=== PATIENT | female | born 1940 | race African-American/Black ===

== ENCOUNTER → 2016-09-21 | Outpatient (CLI) | payer MEDICARE, OTHER ==
[~2016-09-21] MED LIST: AMLO10TA2 PO; ASPI81CH37 CHEW; CLOP75TA PO; DORZ2SOL EACH EYE; HYDR-3516 PO; LOSA25TA PO; MACR100C2 PO; METO50TA11 PO; NOVO7030P2 SQ; PLAQ200T PO; REFRDRO EACH EYE; TIMO0.5S30 EACH EYE; TIMO0.5S4 EACH EYE; VITA2000 PO
[2016-09-21 13:49] LABS: BASOPHIL % 0.3 % (0.0-2.0); EOSINOPHIL % 0.6 % (0.0-4.0); HEMATOCRIT 33.4 % (35.0-46.0); HEMO FLAGS DIFF FINAL; LYMPH % 14.5 % (9.0-44.0); LYMPHOCYTE # 1.1 TH/MM3 (1.0-4.8); MEAN CELL VOLUME 88.1 FL (80.0-100.0); MEAN CORPUSCULAR HEMOGLOBIN 29.2 PG (27.0-34.0); MEAN CORPUSCULAR HGB CONC 33.2 % (32.0-36.0); NEUT % 76.6 % (16.0-70.0); PLATELET COUNT 213 TH/MM3 (150-450); RED BLOOD COUNT 3.79 MIL/MM3 (4.00-5.30); RED CELL DISTRIBUTION WIDTH 14.9 % (11.6-17.2); WHITE BLOOD COUNT 7.9 TH/MM3 (4.0-11.0)
[2016-09-21 14:10] LABS: ALKALINE PHOSPHATASE 111 U/L (45-117); ALT (GPT) 13 U/L (10-53); ANION GAP 7 MEQ/L (5-15); AST (GOT) 5 U/L (15-37); BICARBONATE 26.6 MEQ/L (21.0-32.0); BLOOD UREA NITROGEN 10 MG/DL (7-18); CHLORIDE 104 MEQ/L (98-107); GLOMERULAR FILTRATION RATE 75 ML/MIN (>89); GLUCOSE,FASTING 142 MG/DL (74-99); SODIUM (NA) 138 MEQ/L (136-145); TOTAL BILIRUBIN ADULT 0.4 MG/DL (0.2-1.0)
[2016-09-21 14:21] LABS: WESTERGREN SEDIMENTATION RATE 97 mm/hr (0-30)
== END ==
LOC: CLAB 13:09
PROVIDERS: ATTEND Allergy & Immunology
DX: M06.4 Inflammatory polyarthropathy (principal)
CPT/HCPCS: 36415; 80053; 85025; 85652; 86140

== ENCOUNTER 2016-09-27 08:58 | Emergency (ER) | payer MEDICARE, OTHER ==
[~2016-09-27] VITALS: Ht 162.6 cm; Wt 100.0 kg
[~2016-09-27 08:58] MED LIST changes: -CLOP75TA PO; -HYDR-3516 PO; -MACR100C2 PO; -TIMO0.5S30 EACH EYE; -VITA2000 PO
[2016-09-27 09:02] VITALS: BP 154/67; PULSE 80; RESP 18; TEMP 98; O2SAT 98
[2016-09-27 09:35] VITALS: BP 136/62; PULSE 69; RESP 18; O2SAT 98
[2016-09-27] MEDS ORDERED: SODIUM CHLOR 0.9% 1000 ML INJ 1,000 ML IV SCH (09:44)
[2016-09-27] MEDS ORDERED: ONDANSETRON HCL 4 MG/2 ML VIAL IVP ONE (09:45)
[2016-09-27] MEDS ORDERED: SODIUM CHLORIDE 0.9% FLUSH 5 ML FLUSH IVF PRN (09:45)
--- NOTE | 2016-09-27 09:50 | PD ---
HPI Chief Complaint: Abdominal Pain Time Seen by Provider: 09:14 Travel History International Travel<30 days: No Contact w/Intl Traveler<30days: No Traveled to known affect area: No History of Present Illness HPI Patient is a 75-year-old female who presents to emergency room with complaints of lower abdominal pain which radiates to her right flank. Patient reports that her symptoms began 4 days ago, reports that symptoms are just getting worse. Patient reports that she is having increased dysuria, with urinary urgency and frequency. Patient denies hematuria. Patient reports that she feels nauseous but has not vomited. Denies constipation or diarrhea. Patient reports that she has been having fevers and chills, reports that her temperature last night was 102 - reports that she feels as if her temperature is "going down." Patient reports that she does have history of kidney stones in the past, reports that she is unsure if she had a kidney stone today as the laceration to kidney stone, she felt no pain. Patient denies chest pain or shortness of breath. Patient with no other complaints. PFSH Past Medical History Hx Anticoagulant Therapy: Yes (plavix aspirin) Anemia: Yes Arthritis: Yes (RHEUMATOID AND OSTEO) Asthma: Yes Blood Disorders: No Anxiety: Yes Depression: No Heart Rhythm Problems: Yes Cancer: No Cardiac Catheterization: Yes (IN 2004) Cardiovascular Problems: Yes Chemotherapy: No Chest Pain: Yes Coronary Artery Disease: Yes Diabetes: Yes Patient Takes Glucophage: No Diminished Hearing: No Diverticulitis: Yes Endocrine: Yes Fibromyalgia: Yes Gastrointestinal Disorders: Yes (GERD, OCCASIONAL N/V, ESOPHAGEAL STRICTURE/ DILATION) GERD: Yes Glaucoma: Yes Genitourinary: Yes (recent bladder infection) Headaches: Yes Hepatitis: No Hiatal Hernia: Yes Hypertension: Yes Immune Disorder: Yes (RHEUMATOID ARTHRITIS) Inguinal Hernia: Yes Kidney Stones: Yes Musculoskeletal: Yes (BACK/NECK PROBLEMS, RHEUMATOID & OSTEOARTHRITIS, FIBROMYALGIA) Neurologic: No Psychiatric: Yes (CLAUSTROPHOBIC) Reproductive: Yes (DX RECENTLY WITH ENLARGED UTERUS) Respiratory: Yes (asthma) Immunizations Current: Yes Pneumonia: Yes Radiation Therapy: No Sickle Cell Disease: No Sleep Apnea: Yes (NO CPAP USE) Thyroid Disease: Yes (HX OF, NOT ON MEDICATION CURRENTLY) Tetanus Vaccination: > 5 Years Influenza Vaccination: Yes PNEUMOCCOCAL Vaccine (Year): 2009 ?: Not Menopausal: Yes : 3 Para: 2 Miscarriage: 1 Dilation and Curettage (D&C): Yes Tubal Ligation: Yes Past Surgical History Abdominal Surgery: Yes (RT INGUINAL HERNIA) AICD: No Arteriovenous Shunt: No Body Medical Devices: Stents X2 Cardiac Surgery: Yes (CARDIAC STENTS X 2) Section: Yes Coronary Stent: Yes (X 2) Ear Surgery: No Endocrine Surgery: No Eye Surgery: Yes (GLAUCOMA SURGERY R EYE, RT CATARACT REMOVED) Genitourinary Surgery: No Gynecologic Surgery: Yes (D & C X 3, TUBAL LIGATION) Insulin Pump: No Joint Replacement: No Neurologic Surgery: No Oral Surgery: Yes (CROWNS,CAPS, PARTIAL LOWER PLATE) Pacemaker: No Thoracic Surgery: No Other Surgery: Yes Social History Alcohol Use: No Tobacco Use: No (QUIT IN 1979) Substance Use: No Allergies-Medications (Allergen,Severity, Reaction): Coded Allergies: Alphagan (Verified Allergy, Intermediate, Redness, 08/15/16) Travatan (Verified Allergy, Intermediate, Redness, 08/15/16) Bactrim (Verified Allergy, Unknown, 08/15/16) Cipro (Verified Allergy, Unknown, 08/15/16) Levaquin (Verified Adverse Reaction, Severe, WEAKNESS, 08/15/16) Reported Meds & Prescriptions Reported Meds & Active Scripts Active Macrobid (Nitrofurantoin Monoh/Nitrofur Macro) 100 Mg Cap 100 Mg PO BID 10 Days Reported Amlodipine (Amlodipine Besylate) 10 Mg Tab 10 Mg PO DAILY Aspirin Low Dose (Aspirin) 81 Mg Chew 162 Mg CHEW DAILY Refresh Opth Drops (Polyvinyl Alcohol-Povidone Opth Drops) 1.4-0.6% Drops 1-2 Drop EACH EYE PRN PRN Timoptic-Xe Opth Gel (Timolol Opth Gel) 0.5 % Gel 1 Drop EACH EYE DAILY Dorzolamide Opth Drops (Dorzolamide HCl) 2% Soln 1 Drop EACH EYE TID Metoprolol Succinate ER 24 HR (Metoprolol Succinate) 50 Mg Tab 50 Mg PO DAILY Losartan (Losartan Potassium) 25 Mg Tab 25 Mg PO DAILY Novolin 70-30 Inj (Insulin Human Isoph/Insulin Regular) 1,000 Unit/10 Ml Vial 1 Units SQ SLIDING SCALE Plaquenil (Hydroxychloroquine Sulfate) 200 Mg Tab 200 Mg PO BID Take with food Review of Systems General / Constitutional: No: Fever Eyes: No: Visual changes HENT: No: Headaches Cardiovascular: No: Chest Pain or Discomfort Respiratory: No: Shortness of Breath Gastrointestinal: Positive: Nausea, Abdominal Pain Genitourinary: Positive: Urgency, Frequency, Dysuria, Hematuria, Flank Pain, No: Hesitancy, Pelvic Pain Musculoskeletal: No: Pain Skin: No Rash Neurologic: No: Weakness Psychiatric: No: Depression Endocrine: No: Polydipsia Hematologic/Lymphatic: No: Easy Bruising Physical Exam Narrative GENERAL: No acute distress, nontoxic SKIN: Warm and dry. HEAD: Atraumatic. Normocephalic. EYES: Pupils equal and round. No scleral icterus. No injection or drainage. ENT: No nasal bleeding or discharge. Mucous membranes pink and moist. NECK: Trachea midline. No JVD. CARDIOVASCULAR: Regular rate and rhythm. No murmur appreciated. RESPIRATORY: No accessory muscle use. Clear to auscultation. Breath sounds equal bilaterally. GASTROINTESTINAL: Abdomen soft, mild tenderness to lower abdomen with right sided flank pain MUSCULOSKELETAL: No obvious deformities. No clubbing. No cyanosis. No edema. NEUROLOGICAL: Awake and alert. No obvious cranial nerve deficits. Motor grossly within normal limits. Normal speech. PSYCHIATRIC: Appropriate mood and affect; insight and judgment normal. Data Data Last Documented VS Vital Signs Date Time Temp Pulse Resp B/P Pulse Ox O2 Delivery O2 Flow Rate FiO2 09/27/16 10:28 18 09/27/16 09:35 69 136/62 98 Room Air 09/27/16 09:02 98.0 Orders Complete Blood Count With Diff (09/27/16 09:44) Comprehensive Metabolic Panel (09/27/16 09:44) Lipase (09/27/16 09:44) Prothrombin Time / Inr (Pt) (09/27/16 09:44) Act Partial Throm Time (Ptt) (09/27/16 09:44) Urinalysis - C+S If Indicated (09/27/16 09:44) Ct Abd/Pel W/O Iv Contrast (09/27/16 09:44) Iv Access Insert/Monitor (09/27/16 09:44) Ondansetron Inj (Zofran Inj) (09/27/16 09:45) Sodium Chlor 0.9% 1000 Ml Inj (Ns 1000 M (09/27/16 09:44) Sodium Chloride 0.9% Flush (Ns Flush) (09/27/16 09:45) Morphine Inj (Morphine Inj) (09/27/16 10:00) Influenzae A/B Antigen (09/27/16 09:54) Urine Culture (09/27/16 09:45) Ceftriaxone Inj (Rocephin Inj) (09/27/16 10:45) Labs Laboratory Tests Test 09/27/16 09:45 White Blood Count 7.4 TH/MM3 Red Blood Count 3.86 MIL/MM3 Hemoglobin 11.1 GM/DL Hematocrit 33.9 % Mean Corpuscular Volume 87.8 FL Mean Corpuscular Hemoglobin 28.7 PG Mean Corpuscular Hemoglobin 32.6 % Concent Red Cell Distribution Width 14.7 % Platelet Count 231 TH/MM3 Mean Platelet Volume 8.7 FL Neutrophils (%) (Auto) 76.7 % Lymphocytes (%) (Auto) 12.4 % Monocytes (%) (Auto) 10.4 % Eosinophils (%) (Auto) 0.1 % Basophils (%) (Auto) 0.4 % Neutrophils # (Auto) 5.6 TH/MM3 Lymphocytes # (Auto) 0.9 TH/MM3 Monocytes # (Auto) 0.8 TH/MM3 Eosinophils # (Auto) 0.0 TH/MM3 Basophils # (Auto) 0.0 TH/MM3 CBC Comment DIFF FINAL Differential Comment Prothrombin Time 12.6 SEC Prothromb Time International 1.1 RATIO Ratio Activated Partial 29.0 SEC Thromboplast Time Urine Color YELLOW Urine Turbidity HAZY Urine pH 5.5 Urine Specific [place] 1.018 Urine Protein 30 mg/dL Urine Glucose (UA) NEG mg/dL Urine Ketones TRACE mg/dL Urine Occult Blood SMALL Urine Nitrite POS Urine Bilirubin NEG Urine Urobilinogen 2.0 MG/DL Urine Leukocyte Esterase LARGE Urine RBC 7 /hpf Urine WBC /hpf Urine WBC Clumps FEW Urine Squamous Epithelial 11 /hpf Cells Urine Bacteria OCC /hpf Urine Hyaline Casts 2 /lpf Urine Mucus FEW /lpf Microscopic Urinalysis Comment CULTURE INDICATED Sodium Level 134 MEQ/L Potassium Level 4.5 MEQ/L Chloride Level 101 MEQ/L Carbon Dioxide Level 23.6 MEQ/L Anion Gap 9 MEQ/L Blood Urea Nitrogen 14 MG/DL Creatinine 1.19 MG/DL Estimat Glomerular Filtration 53 ML/MIN Rate Random Glucose 128 MG/DL Calcium Level 9.3 MG/DL Total Bilirubin 0.6 MG/DL Aspartate Amino Transf 50 U/L (AST/SGOT) Alanine Aminotransferase 37 U/L (ALT/SGPT) Alkaline Phosphatase 115 U/L Total Protein 8.8 GM/DL Albumin 2.8 GM/DL Lipase 108 U/L MDM Medical Decision Making Medical Screen Exam Complete: Yes Emergency Medical Condition: Yes Interpretation(s) Vital Signs Date Time Temp Pulse Resp B/P Pulse Ox O2 Delivery O2 Flow Rate FiO2 09/27/16 09:35 69 18 136/62 98 Room Air 09/27/16 09:02 98.0 80 18 154/67 98 Differential Diagnosis Cystitis, pyelonephritis, kidney stone Narrative Course Patient is a 75-year-old female who presents to emergency room with complaints of 4 days of fever, chills with nausea with right-sided flank pain with associated urinary symptoms. Patient with clinical symptoms suggesting UTI versus pyelonephritis vs kidney stone. Plan to obtain UA, cbc, bmp to look for infection and kidney function. ct abdomen and pelvis ordered for evaluation of kidney stone vs hydronephrosis vs obstruction All labs and all studies reviewed with patient in detail. Laboratory Tests Test 09/27/16 09:45 White Blood Count 7.4 TH/MM3 (4.0-11.0) Red Blood Count 3.86 MIL/MM3 (4.00-5.30) Hemoglobin 11.1 GM/DL (11.6-15.3) Hematocrit 33.9 % (35.0-46.0) Mean Corpuscular Volume 87.8 FL (80.0-100.0) Mean Corpuscular Hemoglobin 28.7 PG (27.0-34.0) Mean Corpuscular Hemoglobin 32.6 % Concent (32.0-36.0) Red Cell Distribution Width 14.7 % (11.6-17.2) Platelet Count 231 TH/MM3 (150-450) Mean Platelet Volume 8.7 FL (7.0-11.0) Neutrophils (%) (Auto) 76.7 % (16.0-70.0) Lymphocytes (%) (Auto) 12.4 % (9.0-44.0) Monocytes (%) (Auto) 10.4 % (0.0-8.0) Eosinophils (%) (Auto) 0.1 % (0.0-4.0) Basophils (%) (Auto) 0.4 % (0.0-2.0) Neutrophils # (Auto) 5.6 TH/MM3 (1.8-7.7) Lymphocytes # (Auto) 0.9 TH/MM3 (1.0-4.8) Monocytes # (Auto) 0.8 TH/MM3 (0-0.9) Eosinophils # (Auto) 0.0 TH/MM3 (0-0.4) Basophils # (Auto) 0.0 TH/MM3 (0-0.2) CBC Comment DIFF FINAL Differential Comment Prothrombin Time 12.6 SEC (9.8-11.6) Prothromb Time International 1.1 RATIO Ratio Activated Partial 29.0 SEC Thromboplast Time (24.3-30.1) Urine Color YELLOW (YELLW/STRAW) Urine Turbidity HAZY (CLEAR) Urine pH 5.5 (5.0-8.5) Urine Specific [place] 1.018 (1.002-1.035) Urine Protein 30 mg/dL (NEG-TRACE) Urine Glucose (UA) NEG mg/dL (NEG) Urine Ketones TRACE mg/dL (NEG) Urine Occult Blood SMALL (NEG) Urine Nitrite POS (NEG) Urine Bilirubin NEG (NEG) Urine Urobilinogen 2.0 MG/DL (LESS THAN 2.0) Urine Leukocyte Esterase LARGE (NEG) Urine RBC 7 /hpf (0-3) Urine WBC /hpf (0-5) Urine WBC Clumps FEW (NONE) Urine Squamous Epithelial 11 /hpf (0-5) Cells Urine Bacteria OCC /hpf (NONE) Urine Hyaline Casts 2 /lpf (RARE) Urine Mucus FEW /lpf (OCC) Microscopic Urinalysis Comment CULTURE INDICATED Sodium Level 134 MEQ/L (136-145) Potassium Level 4.5 MEQ/L (3.5-5.1) Chloride Level 101 MEQ/L (98-107) Carbon Dioxide Level 23.6 MEQ/L (21.0-32.0) Anion Gap 9 MEQ/L (5-15) Blood Urea Nitrogen 14 MG/DL (7-18) Creatinine 1.19 MG/DL (0.50-1.00) Estimat Glomerular Filtration 53 ML/MIN (>89) Rate Random Glucose 128 MG/DL (74-106) Calcium Level 9.3 MG/DL (8.5-10.1) Total Bilirubin 0.6 MG/DL (0.2-1.0) Aspartate Amino Transf 50 U/L (15-37) (AST/SGOT) Alanine Aminotransferase 37 U/L (10-53) (ALT/SGPT) Alkaline Phosphatase 115 U/L (45-117) Total Protein 8.8 GM/DL (6.4-8.2) Albumin 2.8 GM/DL (3.4-5.0) Lipase 108 U/L (73-393) Patient does have a urinary tract infection, IV dose of Rocephin given to patient. Urine culture sent. .UC with large leuk esteraste, occ bacteria, small blood Cr mildly elevated at 1.19 - pt most likely dehydrated - ivf given to her in ER Ct abdomen/pelvis: Last Impressions Abdomen/Pelvis CT 09/27/16 0944 Signed Impressions: Service Date/Time: Tuesday, September 27, 2016 10:06 - CONCLUSION: No evidence of inflammatory process within the abdomen or pelvis. Diverticulosis is identified within the sigmoid colon without current evidence of inflammation.. Magdalena Thorpe MD As far as her reproductive organs, there is a rounded mass projecting from the posterior aspect of her uterus consistent with a uterine fibroid. This appears decreased in size compared to previous studies. A copy of patient's CAT scan report was given to her so that she can follow up with all these studies and findings as outpatient. Diagnosis Primary Impression: UTI (urinary tract infection) Qualified Code: N30.01 - Acute cystitis with hematuria Additional Impressions: Flank pain Renal insufficiency Anemia Qualified Code: D64.9 - Anemia, unspecified type Fibroid, uterine Qualified Code: D25.9 - Uterine leiomyoma, unspecified location Patient Instructions: General Instructions, Narcotic given in the ED Med/Other Pt SpecificInfo: Prescription(s) given Scripts Nitrofurantoin Monohydrate Macrocrystals (Macrobid)100 Mg [id number] Mg PO BID 10 Days Ref 0 Prov:Trudy Odom DO 09/27/16 Disposition: 01 DISCHARGE HOME Condition: Stable Trudy Odom DO Sep 27, 2016 09:49 Trudy Odom DO Sep 27, 2016 09:49
[2016-09-27] MEDS ORDERED: MORPHINE SULFATE 4 MG/ML INJ IV PUSH ONE (10:00)
[2016-09-27 10:06] LABS: AUTOMATED NEUTROPHIL # 5.6 TH/MM3 (1.8-7.7); BASOPHIL % 0.4 % (0.0-2.0); EOSINOPHIL % 0.1 % (0.0-4.0); HEMATOCRIT 33.9 % (35.0-46.0); HEMO FLAGS DIFF FINAL; LYMPH % 12.4 % (9.0-44.0); LYMPHOCYTE # 0.9 TH/MM3 (1.0-4.8); MEAN CELL VOLUME 87.8 FL (80.0-100.0); MEAN CORPUSCULAR HEMOGLOBIN 28.7 PG (27.0-34.0); MEAN CORPUSCULAR HGB CONC 32.6 % (32.0-36.0); MONO % 10.4 % (0.0-8.0); NEUT % 76.7 % (16.0-70.0); PLATELET COUNT 231 TH/MM3 (150-450); RED BLOOD COUNT 3.86 MIL/MM3 (4.00-5.30); RED CELL DISTRIBUTION WIDTH 14.7 % (11.6-17.2); WHITE BLOOD COUNT 7.4 TH/MM3 (4.0-11.0)
[2016-09-27 10:12] LABS: BACTERIA, URINE OCC /hpf; BLOOD, URINE SMALL (NEG); COMMENT (UR) CULTURE INDICATED; CULTURE IF INDICATED CULTURE INDICATED; GLUCOSE,URINE NEG (NEG); HYALINE CAST, URINE 2 /lpf (RARE); KETONE, URINE TRACE mg/dL (NEG); MUCUS URINE FEW /lpf (OCC); NITRITE,URINE POS (NEG); PH, URINE 5.5 (5.0-8.5); SQUAMOUS EPITHELIAL CELL URINE 11 /hpf (0-5); URINE COLOR YELLOW (YELLW/STRAW)
[2016-09-27 10:33] LABS: ALKALINE PHOSPHATASE 115 U/L (45-117); TOTAL BILIRUBIN ADULT 0.6 MG/DL (0.2-1.0)
[2016-09-27 10:35] LABS: INTERNATIONAL NORMALIZED RATIO 1.1 RATIO; PROTHROMBIN TIME - PATIENT 12.6 SEC (9.8-11.6)
[2016-09-27 10:37] LABS: ALT (GPT) 37 U/L (10-53); ANION GAP 9 MEQ/L (5-15); AST (GOT) 50 U/L (15-37); BICARBONATE 23.6 MEQ/L (21.0-32.0); BLOOD UREA NITROGEN 14 MG/DL (7-18); CHLORIDE 101 MEQ/L (98-107); GLOMERULAR FILTRATION RATE 53 ML/MIN (>89); SODIUM (NA) 134 MEQ/L (136-145)
[2016-09-27 10:44] LABS: POTASSIUM 4.5 MEQ/L (3.5-5.1)
[2016-09-27] MEDS ORDERED: cefTRIAXone INJ 1,000 MG in SODIUM CHLORIDE 0.9% INJ 100 ML IV ONE (10:45)
--- NOTE | 2016-09-27 10:50 | RADRPT ---
EXAM DATE/TIME: 09/27/2016 10:06 [facility] COMPARISON: CT ABDOMEN & PELVIS W/O CONTRAST, July 25, 2015, 18:45. INDICATIONS : Lower abdominal pain that radiates to right flank, dysuria, nausea. ORAL CONTRAST: No oral contrast ingested. RADIATION DOSE: 25.04 CTDIvol (mGy) MEDICAL HISTORY : Renal calculi. Diverticulitis. Gastroesophageal reflux disease.Diabetes, hypertension, cardiovascular disease. SURGICAL HISTORY : Tubal ligation. Coronary artery stent. ENCOUNTER: Initial ACUITY: 4 - 6 days PAIN SCALE: 5/10 LOCATION: Bilateral lower quadrant TECHNIQUE: Volumetric scanning of the abdomen and pelvis was performed. Using automated exposure control and ad justment of the mA and/or kV according to patient size, radiation dose was kept as low as reasonably achievable to obtain optimal diagnostic quality images. FINDINGS: LOWER LUNGS: The visualized lower lungs are clear. LIVER: Calcified granulomas. The liver is otherwise normal in morphology and attenuation. SPLEEN: Normal size without lesion. PANCREAS: Within normal limits. KIDNEYS: Normal in size and shape. There is no mass, stone, or hydronephrosis. ADRENAL GLANDS: Within normal limits. VASCULAR: There is no aortic aneurysm. Extensive atherosclerosis is noted. BOWEL/MESENTERY: The stomach, small bowel, and colon demonstrate no acute abnormality. There is no free intraperitone al air or fluid. Diverticulosis involving the sigmoid colon. ABDOMINAL WALL: Within normal limits. RETROPERITONEUM: There is no lymphadenopathy. BLADDER: No wall thickening or mass. REPRODUCTIVE: There is a rounded mass projecting from the posterior aspect of the uterus consistent with a uterine fibroid. This appears decreased in size as compared to the prior exam currently measuring 3.90 3.8 x 3.6 cm. INGUINAL: There is no lymphadenopathy or hernia. MUSCULOSKELETAL: Within normal limits for patient age. CONCLUSION: No evidence of inflammatory process within the abdomen or pelvis. Diverticulosis is identified within the sigmoid colon without current evidence of inflammation.. Magdalena Thorpe MD on September 27, 2016 at 10:45 Board Certified Radiologist. This report was verified electronically.
[2016-09-27] MEDS ORDERED: MACR100C2 PO (11:04)
[2016-09-27 12:41] VITALS: BP 131/64; PULSE 72; RESP 18; O2SAT 98
[2016-12-04] MEDS ORDERED: TIMO0.5S30 EACH EYE (10:10)
== END 2016-09-27 12:42 | disposition home or self-care (01) ==
LOC: NEPC 08:58
DX: N30.01 Acute cystitis with hematuria (principal); R10.9 Unspecified abdominal pain; N28.9 Disorder of kidney and ureter, unspecified; D64.9 Anemia, unspecified; D25.9 Leiomyoma of uterus, unspecified; B96.20 Unspecified Escherichia coli [E. coli] as the cause of diseases classified elsewhere; R50.9 Fever, unspecified; K57.90 Diverticulosis of intestine, part unspecified, without perforation or abscess without bleeding; E11.9 Type 2 diabetes mellitus without complications; I10 Essential (primary) hypertension; Z79.4 Long term (current) use of insulin; Z87.442 Personal history of urinary calculi; Z86.2 Personal history of diseases of the blood and blood-forming organs and certain disorders involving the immune mechanism; Z87.39 Personal history of other diseases of the musculoskeletal system and connective tissue; Z86.79 Personal history of other diseases of the circulatory system; Z87.09 Personal history of other diseases of the respiratory system; Z86.59 Personal history of other mental and behavioral disorders; Z87.19 Personal history of other diseases of the digestive system; Z87.891 Personal history of nicotine dependence
CPT/HCPCS: 74176; 80053; 81001; 83690; 85025; 85610; 85730; 87077; 87086; 87186; 96361; 96365; 96375; 99284; J0696; J2270; J2405; J7030

== ENCOUNTER → 2017-01-05 | Outpatient (CLI) | payer MEDICARE, OTHER ==
[~2017-01-05] MED LIST changes: +CLOP75TA PO; +HYDR-3516 PO; +TIMO0.5S30 EACH EYE; -TIMO0.5S4 EACH EYE; +VITA2000 PO
[2017-01-05 08:20] LABS: AUTOMATED NEUTROPHIL # 4.2 TH/MM3 (1.8-7.7); BASOPHIL % 0.3 % (0.0-2.0); EOSINOPHIL # 0.1 TH/MM3 (0-0.4); EOSINOPHIL % 1.4 % (0.0-4.0); HEMATOCRIT 32.9 % (35.0-46.0); HEMO FLAGS DIFF FINAL; LYMPH % 24.8 % (9.0-44.0); LYMPHOCYTE # 1.6 TH/MM3 (1.0-4.8); MEAN CELL VOLUME 90.4 FL (80.0-100.0); MEAN CORPUSCULAR HEMOGLOBIN 28.8 PG (27.0-34.0); MEAN CORPUSCULAR HGB CONC 31.9 % (32.0-36.0); MONO % 7.6 % (0.0-8.0); NEUT % 65.9 % (16.0-70.0); PLATELET COUNT 175 TH/MM3 (150-450); RED BLOOD COUNT 3.64 MIL/MM3 (4.00-5.30); RED CELL DISTRIBUTION WIDTH 16.3 % (11.6-17.2); WHITE BLOOD COUNT 6.4 TH/MM3 (4.0-11.0)
[2017-01-05 08:48] LABS: ALKALINE PHOSPHATASE 133 U/L (45-117); ALT (GPT) 13 U/L (10-53); ANION GAP 7 MEQ/L (5-15); AST (GOT) 12 U/L (15-37); BICARBONATE 25.8 MEQ/L (21.0-32.0); BLOOD UREA NITROGEN 28 MG/DL (7-18); CHLORIDE 107 MEQ/L (98-107); GLOMERULAR FILTRATION RATE 49 ML/MIN (>89); GLUCOSE,FASTING 138 MG/DL (74-99); POTASSIUM 4.2 MEQ/L (3.5-5.1); SODIUM (NA) 140 MEQ/L (136-145); TOTAL BILIRUBIN ADULT 0.3 MG/DL (0.2-1.0)
== END ==
LOC: CLAB 07:55
PROVIDERS: ATTEND Internal Medicine Gastroenterology
DX: M54.9 Dorsalgia, unspecified (principal); R10.9 Unspecified abdominal pain; R13.14 Dysphagia, pharyngoesophageal phase; R14.3 Flatulence
CPT/HCPCS: 36415; 80053; 85025

== ENCOUNTER 2017-02-27 08:30 | Inpatient (IN) | payer MEDICARE, OTHER ==
[~2017-02-27] VITALS: Ht 163.8 cm; Wt 103.4 kg
[~2017-02-27 08:30] MED LIST changes: -CLOP75TA PO; -HYDR-3516 PO; -VITA2000 PO
[2017-03-09] MEDS ORDERED: HYDR-3516 PO (09:12)
[2017-03-09] MEDS ORDERED: VITA2000 PO (09:12)
[2017-03-09] MEDS ORDERED: CLOP75TA PO (09:12)
[2017-03-19] MEDS ORDERED: GENTAMICIN SULFATE 80 MG/2 ML VIAL ONE ×2 (08:18)
[2017-03-19 08:28] VITALS: BP 164/72; PULSE 62; RESP 18; TEMP 98; O2SAT 100
[2017-03-19] MEDS ORDERED: LACTATED RINGER'S 1000 ML IV PRN (08:30)
[2017-03-19] MEDS ORDERED: CHLORHEXIDINE GLUCONATE 2 % 1 PACK (2 CLOTHS) TOPICAL PRN (08:30)
[2017-03-19] MEDS ORDERED: METOPROLOL TARTRATE 25 MG TAB PO PRN (08:30)
[2017-03-19] MEDS ORDERED: CHLORHEXIDINE GLUCONATE 4% SOLN 120 ML BTL TOPICAL SCH (08:30)
[2017-03-19] MEDS ORDERED: POVIDONE IODINE 5% (ANTISEPSIS KIT) 4 APPLICATIONS EACH NARE PRN (08:30)
[2017-03-19] MEDS ORDERED: SODIUM CHLORID 0.9% 500 ML IV PRN (08:30)
[2017-03-19] MEDS ORDERED: ceFAZolin 2 GM PREMIX 50 ML IV SCH (08:30)
[2017-03-19] MEDS ORDERED: BUPIVACAINE HCL PF 0.5% 30 ML VIAL NERV BLOCK ONE (08:47)
[2017-03-19] MEDS ORDERED: DEXAMETHASONE SOD PHOS 4 MG/ML VIAL ONE (09:38)
[2017-03-19] MEDS ORDERED: FAMOTIDINE 20 MG/2 ML VIAL ONE (09:38)
[2017-03-19] MEDS ORDERED: METOCLOPRAMIDE HCL 10 MG/2 ML VIAL ONE (09:39)
[2017-03-19] MEDS ORDERED: ALBUTEROL SULFATE 90 MCG/ACT HFA 18 GM INHALER INH ONE (09:46)
[2017-03-19] MEDS: LACTATED RINGER'S 1000 ML INJ 1,000 ML IV SCH ×2 (09:50→20:55)
[2017-03-19] MEDS ORDERED: Post-op Orders (for Pharmacy) MISC XX ONE (10:00)
[2017-03-19] MEDS ORDERED: MORPHINE SULFATE 4 MG/ML INJ IV PUSH PRN (10:00)
[2017-03-19] MEDS ORDERED: ZOLPIDEM TARTRATE 5 MG TAB PO PRN (10:00)
[2017-03-19] MEDS ORDERED: TRANEXAMIC ACID INJ 0 MG in SODIUM CHLORIDE 0.9% INJ 100 ML IV SCH (10:00)
[2017-03-19] MEDS ORDERED: SODIUM CHLORIDE 0.9% FLUSH 5 ML FLUSH IVF PRN (10:00)
[2017-03-19] MEDS ORDERED: TRANEXAMIC ACID INJ 1,030 MG in SODIUM CHLORIDE 0.9% INJ 100 ML IV SCH ×2 (10:00→13:00)
[2017-03-19] MEDS ORDERED: EXPAREL PERI-ARTICULAR INJECTION (TOTAL VOL. 100 ML) P-ARTICULR SCH ×2 (10:00)
[2017-03-19] MEDS ORDERED: ACETAMINOPHEN/HYDROcodone 325 MG/7.5 MG TAB PO PRN (10:00)
--- NOTE | 2017-03-19 10:01 | HHI.FF ---
Face to Face Verification Diagnosis: (1) Status post total right knee replacement Physical Therapy Gait training Knee: Total knee, Protocol: Right, Full weight bearing Right LE Weight Bearing: WB as tolerated Right LE Range of Motion: Active ROM (AROM, AAROM, PROM, PRE. ROM goal is 0 to 110 degrees, which is what was attained in the OR.) Nursing Nursing: Dressing changes Dressing Changes: Daily dressing change, Coverderm/Primapore Additional Instructions Remove steristrips on postop day 14. I have seen patient Gladis Warner on 03/19/17. My clinical findings support the need for the requested home health care services because: Ltd mobility - disease progression Limited ability to care for self High risk of falls I certify that my clinical findings support that this patient is homebound because: Post-op weakness Unsteady gait/balance Unsafe to leave home unassisted Sharmila Bell MD (Charles) Mar 19, 2017 10:01
[2017-03-19] MEDS ORDERED: ENALAPRILAT 1.25 MG/ML VIAL IV PRN (12:00)
[2017-03-19] MEDS ORDERED: DEXTROSE 50% IN WATER 50 ML VIAL(D50) IV PRN (12:00)
[2017-03-19] MEDS ORDERED: cloNIDine HCL 0.1 MG TAB PO PRN (12:00)
[2017-03-19] MEDS ORDERED: PROPOFOL 200 MG/20 ML AMP IV ONE (12:00)
[2017-03-19] MEDS ORDERED: LACTATED RINGER'S 1000 ML INJ 1,000 ML IV ONE (12:00)
[2017-03-19] MEDS ORDERED: GLUCAGON 1 MG/ML VIAL OTHER PRN (12:00)
[2017-03-19] MEDS ORDERED: ePHEDrine/NS 25 MG/5 ML SYR IV ONE (12:00)
[2017-03-19] MEDS ORDERED: ONDANSETRON HCL 4 MG/2 ML VIAL IV PUSH ONE (12:00)
[2017-03-19] MEDS: DORZOLAMIDE 2% OPTH SOLN 200 DROP/10 ML BTLO EACH EYE SCH ×2 (13:00→21:10)
[2017-03-19] MEDS ORDERED: MIDAZOLAM HCL 2 MG/2 ML VIAL ONE (13:45)
[2017-03-19] MEDS ORDERED: DO NOT ADM ANY ANTICOAGULANT DRUGS PRN (13:45)
[2017-03-19] MEDS ORDERED: *ONDANSETRON 4 MG VIAL PERIprocedural Use ONLY ONE (13:58)
[2017-03-19] MEDS: KETOROLAC TROMETHAMINE 30 MG/ML (IVP) VIAL IVP SCH ×3 (14:05→23:55)
--- NOTE | 2017-03-19 15:05 | RADRPT ---
EXAM DATE/TIME: 03/19/2017 14:35 [facility] COMPARISON: No previous studies available for comparison. INDICATIONS : Post op right knee arthroplasty. MEDICAL HISTORY : Renal calculi. Diverticulitis. Gastroesophageal reflux disease. Diabetes, h ypertension, cardiovascular disease. SURGICAL HISTORY : Tubal ligation. Coronary artery stent. ENCOUNTER: Initial ACUITY: 1 day PAIN SCORE: 6/10 LOCATION: Right knee FINDINGS: AP and lateral views of the knee following arthroplasty reveals a prosthesis in anatomic alignment. F racture is not appreciated. Surgical drain is evident CONCLUSION: Status post total knee arthroplasty. Albert Ovalle MD FACR Board Certified Radiologist. This report was verified electronically.
--- NOTE | 2017-03-19 15:26 | PD.CONS ---
[facility] Request[facility] By Dr. Roberto Bell Reason for Consult Medical management Primary Care Physician Obi Thakkar MD Diagnoses: History of Present Illness Written by Elodia Mitchell, acting as scribe for Dr. Bettencourt on 03/19/17 at 1526. This is a 76-year-old female with a history of chronic right knee pain secondary to osteoarthritis. She underwent elective total knee arthroplasty with nerve block by Dr. BERENICE Bell who requested consultation to evaluate and manage multiple medical conditions. Anesthesia record shows patient was hemodynamically stable, Crystalloid intake of 1300 ml. EBL of 600ml with UO not mentioned. Patient has chronic hypertension controlled on losartan, metoprolol and Norvasc, glaucoma stable on multiple topical eyedrops, chronic anemia with hemoglobin of 10, apnea not on C Pap and coronary artery disease status post stent stable on antiplatelets and Lopressor. Patient's family sociologist is Dr. Adhikari whom the patient saw a couple weeks ago and completed a stress test which was unremarkable. She has been off Plavix and aspirin since 03/13/17 in preparation for surgery. Patient also sees Dr. Miguel, lead architect, for RA and osteoarthritis management, appointment set for 03/22/17. Per family patient has been off Plaquenil for sometime now due to insurance not covering cost. Patient has also recently been treated for a UTI with initial complaints of dysuria in the outpatient setting and has been taking Ciprofloxacin. Ucx with E coli. Rpt UA negative. All other systems reviewed negative. Review of Systems Except as stated in HPI: all other systems reviewed are Neg Past Family Social History Allergies: Coded Allergies: Alphagan (Verified Allergy, Intermediate, Redness, 03/19/17) Travatan (Verified Allergy, Intermediate, Redness, 03/19/17) Cipro (Verified Allergy, Mild, itching and swelling, 03/19/17) Bactrim (Verified Allergy, Unknown, 03/19/17) Levaquin (Verified Adverse Reaction, Severe, WEAKNESS, 03/19/17) Past Medical History As previously mentioned. Patient also has history of CAD with stent placement on Plavix and aspirin, hypertension, type 2 diabetes on 70/30 sliding scale at home, rheumatoid arthritis, asthma, anxiety, glaucoma, diverticulosis, fibromyalgia and GERD/stricture status post dilation Past Surgical History Cardiac catheterization, esophageal dilatation, D&C, BTL and hernia repair. Reported Medications Clopidogrel (Clopidogrel Bisulfate) 75 Mg Tab 75 Mg PO DAILY Hydrocodone-Acetaminophen 5-325 mg Tab 1 Tab PO Q4H PRN Timolol Opth Drops 0.5 % Soln 1 Drop EACH EYE BID Amlodipine (Amlodipine Besylate) 10 Mg Tab 10 Mg PO DAILY Aspirin Low Dose (Aspirin) 81 Mg Chew 162 Mg CHEW DAILY Refresh Opth Drops (Polyvinyl Alcohol-Povidone Opth Drops) 1.4-0.6% Drops 1-2 Drop EACH EYE PRN PRN Dorzolamide Opth Drops (Dorzolamide HCl) 2% Soln 1 Drop EACH EYE TID Metoprolol Succinate ER 24 HR (Metoprolol Succinate) 50 Mg Tab 50 Mg PO DAILY Losartan (Losartan Potassium) 25 Mg Tab 25 Mg PO DAILY Novolin 70-30 Inj (Insulin Human Isoph/Insulin Regular) 1,000 Unit/10 Ml Vial 1 Units SQ SLIDING SCALE Active Ordered Medications Current Medications Medications (Trade) Dose Ordered Sig/Danisha Route Start Time Stop Time Status Last Admin Lactated Ringer's 1,000 ml @ 30 mls/hr Q24H PRN IV 03/19/17 08:30 03/22/17 08:29 03/19/17 08:30 (NS 500 ml Inj) 500 ml @ 30 mls/hr [id number] PRN IV 03/19/17 08:30 03/22/17 08:29 Chlorhexidine Gluconate 1 applic 1 applic ONCE TOPICAL 03/19/17 08:30 03/22/17 08:29 03/19/17 08:30 Tranexamic Acid 1030 mg/Sodium Chloride 110.3 ml @ 200 mls/hr ONCE IV 03/19/17 10:00 03/20/17 16:00 03/19/17 10:01 Tranexamic Acid 1030 mg/Sodium Chloride 110.3 ml @ 200 mls/hr ONCE IV 03/19/17 13:00 03/20/17 19:00 03/19/17 14:19 Bupivacaine Liposome 20 ml/ Sodium Chloride 100 ml @ 200 mls/hr ONCE P-ARTICULR 03/19/17 10:00 03/20/17 16:00 03/19/17 11:16 (Lr 1000 ml Inj) 1,000 ml @ 80 mls/hr [id number] IV 03/19/17 09:50 (NS Flush) 2 ml UNSCH PRN IVF 03/19/17 10:00 IV Flush 2 ml 2 ml BID IVF 03/19/17 21:00 (Ancef Inj/NS Inj) 100 ml @ 200 mls/hr Q6H IV 03/19/17 16:00 03/20/17 04:29 (Morphine Inj) 4 mg Q3H PRN IV PUSH 03/19/17 10:00 ([place] 7.5-325 Mg) 1 tab Q4H PRN PO 03/19/17 10:00 ([place] 7.5-325 Mg) 2 tab Q4H PRN PO 03/19/17 10:00 (Toradol Inj) 15 mg Q6H IVP 03/19/17 12:00 03/21/17 06:01 03/19/17 14:05 (Zofran Inj) 4 mg Q6H PRN IVP 03/19/17 10:00 (Colace) 100 mg BID PO 03/20/17 21:00 (Ambien) 5 mg HS PRN PO 03/19/17 10:00 (Milk Of Magnesia Liq) 30 ml DAILY PRN PO 03/19/17 10:00 (Ecotrin Ec) 81 mg BID PO 03/20/17 12:00 (Norvasc) 10 mg DAILY PO 03/20/17 09:00 (Trusopt 2% Opth Soln) 1 drop TID EACH EYE 03/19/17 13:00 (Toprol Xl) 50 mg DAILY PO 03/20/17 09:00 (Timoptic 0.5% Opth Soln) 1 drop BID EACH EYE 03/19/17 21:00 (Cozaar) 25 mg DAILY PO 03/20/17 09:00 (Vasotec Inj) 1.25 mg Q6H PRN IV 03/19/17 12:00 (Catapres) 0.1 mg Q6H PRN PO 03/19/17 12:00 (D50w (Vial) Inj) 50 ml UNSCH PRN IV 03/19/17 12:00 (Glucagon Inj) 1 mg UNSCH PRN OTHER 03/19/17 12:00 Miscellaneous Information ALL NURSING DEPARTME... UNSCH PRN .XX 03/19/17 13:45 03/20/17 13:44 Family History Patient's grandparent has a CHF history. Social History Quit tobacco in 1979 Physical Exam Vital Signs Vital Signs Date Time Temp Pulse Resp B/P Pulse Ox O2 Delivery O2 Flow Rate FiO2 03/19/17 14:15 53 16 169/74 100 Nasal Cannula 2 03/19/17 14:00 53 16 161/70 100 Nasal Cannula 2 03/19/17 13:45 55 16 147/65 100 Nasal Cannula 2 03/19/17 13:33 98.0 54 16 176/73 100 Nasal Cannula 2 03/19/17 08:28 98.0 62 18 164/72 100 Physical Exam GENERAL: This is a well-nourished, well-developed patient, in no apparent distress. SKIN: No rashes, ecchymoses or lesions. Cool and dry. HEAD: Atraumatic. Normocephalic. No temporal or scalp tenderness. EYES: Pupils equal round and reactive. Extraocular motions intact. No scleral icterus. No injection or drainage. ENT: Nose without bleeding, purulent drainage or septal hematoma. Throat without erythema, tonsillar hypertrophy or exudate. Uvula midline. Airway patent. NECK: Trachea midline. No JVD or lymphadenopathy. Supple, nontender, no meningeal signs. CARDIOVASCULAR: Regular rate and rhythm without murmurs, gallops, or rubs. RESPIRATORY: Clear to auscultation. Breath sounds equal bilaterally. No wheezes , rales, or rhonchi. GASTROINTESTINAL: Abdomen soft, non-tender, nondistended. No guarding. Right lower extremity with clean and dry dressing NEUROLOGICAL: Awake and alert. Cranial nerves II through XII intact. Motor and sensory grossly within normal limits. Five out of 5 muscle strength in all muscle groups. Normal speech. Laboratory Preop eval significant for white count of 6000 hemoglobin of 10 platelet count over 158 sodium 141 potassium 3.9 creatinine 1.93 platelet count 128 urinalysis with few bacteria and mucus urine culture negative Laboratory Tests Test 03/19/17 08:40 Blood Type B POSITIVE Antibody Screen NEGATIVE Imaging Last Impressions Knee X-Ray 03/19/17 0919 Signed Impressions: Service Date/Time: Sunday, March 19, 2017 14:35 - CONCLUSION: Status post total knee arthroplasty. Albert Ovalle MD Assessment and Plan Assessment and Plan This is a 76-year-old female with a history of chronic right knee pain secondary to osteoarthritis. She underwent elective total knee arthroplasty with nerve block by Dr. BERENICE Bell. She is stable continue postoperative care with pain management with Lortab, IV ketorolac and IV morphine sulfate, wound care, physical therapy, incentive spirometry and DVT prophylaxis per orthopedic surgery. Status post total right knee arthroplasty - Post op day 0, 03/19/17. - Control pain, Toradol 15 mg IV q6hr. Morphine 4 mg IV q3hr PRN breakthrough pain. [place] 7.5/325 mg PO q4h PRN per pain scale. - Monitor for constipation, Colace 100 mg PO BID scheduled and milk of magnesium PRN. - Monitor for nausea, Zofran PRN. - Dressing changes per orthopedic recommendations. Hypertension, chronic: Controlled on losartan, metoprolol and Norvasc. We'll provide as needed medications IV Vasotec and clonidine. Continue to monitor Type 2 Diabetes Mellitus, chronic: Last Hemoglobin A1c, 6.5 on 03/08/17. ACHS ACCU checks, NPH insulin in am before meals. Glaucoma stable on multiple topical eyedrops, continue as indicated. Coronary artery disease status post stent stable on antiplatelets, aspirin and Lopressor. Chronic anemia with hemoglobin of 10. Repeat hemoglobin and hematocrit in the morning. Apnea not on C Pap. Monitor for desaturations. Supplemental O2 as needed. GERD with esophageal dilation/GI Prophylaxis: Family does not want her to be on PPI 2/2 risk of C diff, states they will discuss with PCP. Also recommended to follow up with GI regarding antireflux mechanisms. DVT Prophylaxis: SCDs. Continue aspirin. Will resume Plavix when cleared by ortho surgery. Discussed Condition With This note was transcribed by pio Mitchell. I, Dr. Ez Bettencourt personally performed the history, physical exam, and medical decision making; and confirmed the accuracy of the information in the transcribed note. Authenticated by Dr. Ez Bettencourt on 03/19/17 at 15:27. Elodia Mitchell Mar 19, 2017 15:26 Ez Bettencourt MD Mar 19, 2017 15:28
[2017-03-19] MEDS ORDERED: INSULIN ASPART SUPPLEMENTAL SCALE SQ SCH (16:00)
[2017-03-19] MEDS ORDERED: RESP: ALBUTEROL 2.5 MG/3 ML NEB (PRN) NEB (16:00)
[2017-03-19 16:45] VITALS: BP 158/65; PULSE 58; RESP 18; TEMP 95.8; O2SAT 100
[2017-03-19] MEDS: ACETAMINOPHEN/HYDROcodone 325 MG/7.5 MG TAB PO PRN ×2 (17:03→22:00)
[2017-03-19 19:00] VITALS: BP 146/54; PULSE 60; RESP 17; TEMP 96.1; O2SAT 98
[2017-03-19] MEDS: SODIUM CHLORIDE 0.9% FLUSH 5 ML FLUSH IVF SCH (20:55)
[2017-03-19] MEDS: TIMOLOL MALEATE 0.5% OPHT SOLN 5 ML BTL EACH EYE SCH (21:10)
[2017-03-19] MEDS: INSULIN NovoLIN REGULAR SUPPLEMENTAL SCALE SQ SCH (22:00)
[2017-03-20] VITALS: BP 121/54; PULSE 92; RESP 16; TEMP 97.2; O2SAT 97
[2017-03-20] MEDS: ACETAMINOPHEN/HYDROcodone 325 MG/7.5 MG TAB PO PRN ×4 (03:46→21:05)
[2017-03-20 04:00] VITALS: BP 125/53; PULSE 53; RESP 17; TEMP 96.9; O2SAT 99
[2017-03-20 04:50] LABS: HEMATOCRIT 24.7 % (35.0-46.0); REVIEW FLAG FINAL
[2017-03-20] MEDS: KETOROLAC TROMETHAMINE 30 MG/ML (IVP) VIAL IVP SCH ×3 (06:18→18:26)
[2017-03-20] MEDS: INSULIN NovoLIN REGULAR SUPPLEMENTAL SCALE SQ SCH ×4 (06:23→21:05)
[2017-03-20] MEDS ORDERED: INSULIN NovoLIN REGULAR SUPPLEMENTAL SCALE SQ SCH (07:00)
--- NOTE | 2017-03-20 07:59 | PD.ORT.PN ---
Subjective Post Op Day #: 1 Subjective Remarks She is doing well with minimal pain. Range of Motion -10 to 50 degrees. Distance Walked 6 steps twice. Objective Vitals Vital Signs Date Time Temp Pulse Resp B/P Pulse Ox O2 Delivery O2 Flow Rate FiO2 03/20/17 07:20 Room Air 03/20/17 04:00 96.9 53 17 125/53 99 03/20/17 00:00 97.2 92 16 121/54 97 03/19/17 19:00 96.1 60 17 146/54 98 03/19/17 16:45 95.8 58 18 158/65 100 03/19/17 14:50 53 16 176/76 100 Nasal Cannula 2 03/19/17 14:30 53 16 181/73 100 Nasal Cannula 2 03/19/17 14:15 53 16 169/74 100 Nasal Cannula 2 03/19/17 14:00 53 16 161/70 100 Nasal Cannula 2 03/19/17 13:45 55 16 147/65 100 Nasal Cannula 2 03/19/17 13:33 98.0 54 16 176/73 100 Nasal Cannula 2 03/19/17 08:28 98.0 62 18 164/72 100 I/O 03/19/17 03/19/17 03/19/17 03/20/17 03/20/17 03/20/17 07:00 15:00 23:00 07:00 15:00 23:00 Intake Total 1450 ml 637 ml 895 ml Output Total 670 ml 40 ml 70 ml Balance 780 ml 597 ml 825 ml Intake Oral 480 ml 480 ml IV Total 150 ml 157 ml 415 ml Other 1300 ml Output Urine Total 0 ml Drainage Total 70 ml 40 ml 70 ml Estimated Blood Loss 600 ml # Voids 3 1 # Bowel Movements 0 0 Result Diagram: 03/20/17 0351 Imaging Knee x-ray looks good. Last 24 hours Impressions Knee X-Ray 03/19/17 0910 Signed Impressions: Service Date/Time: Sunday, March 19, 2017 14:35 - CONCLUSION: Status post total knee arthroplasty. Albert Ovalle MD Objective Remarks She is resting comfortably, supine in bed in the CPM. The neurovascular status is intact. The dressing is dry and intact. Assessment & Plan Ortho Post Op Day #: 1 Problem List: (1) Status post total right knee replacement Plan: Continue postop care and PT. Assessment and Plan Condition: Good. Orthopaedically stable. DVT prophylaxis: Resume ASA and Plavix, TEDs, sequentials. Discharge plans: Home with [facility]. Has appointment. Rx: [place] 7.5/325. Sharmila Bell MD (Charles) Mar 20, 2017 07:59
[2017-03-20] MEDS: LOSARTAN 25 MG TAB PO SCH (08:00)
[2017-03-20] MEDS: METOPROLOL SUCCINATE 50 MG EXTENDED RELEASE TAB PO SCH (08:01)
[2017-03-20 08:03] VITALS: BP 130/60; PULSE 60; RESP 18; TEMP 95.7; O2SAT 97
[2017-03-20] MEDS: INSULIN HUMAN NPH 1,000 UNITS/10 ML VIAL SQ SCH (08:03)
[2017-03-20] MEDS: DORZOLAMIDE 2% OPTH SOLN 200 DROP/10 ML BTLO EACH EYE SCH ×3 (08:04→18:00)
[2017-03-20] MEDS: TIMOLOL MALEATE 0.5% OPHT SOLN 5 ML BTL EACH EYE SCH ×2 (08:04→21:04)
[2017-03-20] MEDS: SODIUM CHLORIDE 0.9% FLUSH 5 ML FLUSH IVF SCH ×2 (08:04→21:11)
[2017-03-20] MEDS ORDERED: HYDR-3580 PO (08:58)
[2017-03-20] MEDS ORDERED: LOSARTAN 25 MG TAB PO SCH (09:00)
--- NOTE | 2017-03-20 09:14 | HHI.PR ---
Subjective Remarks Follow up total right knee arthroplasty, DM, hypertension, RA. Patient seen and examined today. Lying in bed comfortably, in no apparent distress. RN and Dr. Bell at bedside. Pain well controlled. Tolerating PO intake. Passive motion in place and continued. Denies any recent fever, chills, cough, headache , shortness of breath, abdominal pain, n/v, diarrhea or dysuria. Objective Vitals Vital Signs Date Time Temp Pulse Resp B/P Pulse Ox O2 Delivery O2 Flow Rate FiO2 03/20/17 08:03 95.7 60 18 130/60 97 03/20/17 07:20 Room Air 03/20/17 04:00 96.9 53 17 125/53 99 03/20/17 00:00 97.2 92 16 121/54 97 03/19/17 19:00 96.1 60 17 146/54 98 03/19/17 16:45 95.8 58 18 158/65 100 03/19/17 14:50 53 16 176/76 100 Nasal Cannula 2 03/19/17 14:30 53 16 181/73 100 Nasal Cannula 2 03/19/17 14:15 53 16 169/74 100 Nasal Cannula 2 03/19/17 14:00 53 16 161/70 100 Nasal Cannula 2 03/19/17 13:45 55 16 147/65 100 Nasal Cannula 2 03/19/17 13:33 98.0 54 16 176/73 100 Nasal Cannula 2 I/O 03/19/17 03/19/17 03/19/17 03/20/17 03/20/17 03/20/17 07:00 15:00 23:00 07:00 15:00 23:00 Intake Total 1450 ml 637 ml 895 ml Output Total 670 ml 40 ml 70 ml Balance 780 ml 597 ml 825 ml Intake Oral 480 ml 480 ml IV Total 150 ml 157 ml 415 ml Other 1300 ml Output Urine Total 0 ml Drainage Total 70 ml 40 ml 70 ml Estimated Blood Loss 600 ml # Voids 3 1 # Bowel Movements 0 0 Result Diagram: 03/20/17 0351 Imaging Last Impressions Knee X-Ray 03/19/17 0925 Signed Impressions: Service Date/Time: Sunday, March 19, 2017 14:35 - CONCLUSION: Status post total knee arthroplasty. Albert Ovalle MD Objective Remarks GENERAL: Well-developed patient, in no apparent distress. Lying in bed comfortably. Awake and alert. SKIN: Warm and dry. Right splint and postoperative bandage to right knee in place, c/d/i. Passive motion continued. HEENT: Normocephalic. Pupils equal round and reactive. Extraocular motions intact. No scleral icterus. No injection or drainage. Nose without bleeding. Airway patent. NECK: Trachea midline. No JVD. Supple. CARDIOVASCULAR: Regular rate and rhythm. No murmur appreciated. RESPIRATORY: Clear to auscultation. Breath sounds equal bilaterally. No wheezes , rales, or rhonchi. GASTROINTESTINAL: Abdomen soft, non-tender, nondistended. No guarding. NEUROLOGICAL: Awake and alert. Cranial nerves II through XII intact. Motor and sensory grossly within normal limits. Five out of 5 muscle strength in all muscle groups. Normal speech. Procedures Total right knee arthroplasty 03/19/17. Urinary Catheter: No Vascular Central Line Catheter: No A/P Assessment and Plan Ms. Warner is a 76-year-old female with a history of chronic right knee pain secondary to osteoarthritis. She underwent elective total knee arthroplasty with nerve block by Dr. BERENICE Bell. She is stable continue postoperative care with pain management with Lortab, IV ketorolac and IV morphine sulfate, wound care, physical therapy, incentive spirometry and DVT prophylaxis per orthopedic surgery. Status post total right knee arthroplasty - Post op day 1, 03/19/17. - Control pain, Toradol 15 mg IV q6hr. Morphine 4 mg IV q3hr PRN breakthrough pain. [place] 7.5/325 mg PO q4h PRN per pain scale. - No BM as of yet. Monitor for constipation, Colace 100 mg PO BID scheduled and milk of magnesium PRN. - Monitor for nausea, Zofran PRN. - Afebrile. - Dressing changes per orthopedic recommendations. Dressing to right lower extremity in place, c/d/i. Hypertension, chronic: Well controlled on losartan, metoprolol and Norvasc. We' ll provide as needed medications IV Vasotec and clonidine. Continue to monitor. Type 2 Diabetes Mellitus, chronic: Last Hemoglobin A1c, 6.5 on 03/08/17. ACHS ACCU checks, NPH 10 units insulin in am before meals. Follow blood sugars. Glaucoma stable on multiple topical eyedrops, continue as indicated. Coronary artery disease status post stent stable on antiplatelets, aspirin and Lopressor. Chronic anemia with hemoglobin of 10 prior to surgery. Hemoglobin 8.1/ Hematocrit 24.7 today. Will repeat H/H in am. Apnea not on C Pap. Monitor for desaturations. Supplemental O2 as needed. GERD with esophageal dilation/GI Prophylaxis: Family does not want her to be on PPI 2/2 risk of C diff, states they will discuss with PCP. Also recommended to follow up with GI regarding antireflux mechanisms. DVT Prophylaxis: SCDs. Continue aspirin. Resume Plavix per ortho. Discharge Planning Per Dr. Bell recommendation, [facility] is much preferred compared to going to rehab. CM assisting with patient's request to possibly go to inpatient [facility] for additional rehab. Last CM note, 03/20/17 Referral called to [facility] [phone] per MD and family request. CM to follow 03/21/17. Elodia Mitchell Mar 20, 2017 09:14
[2017-03-20] MEDS: ONDANSETRON HCL 4 MG/2 ML VIAL IVP PRN (09:32)
[2017-03-20] MEDS: LACTATED RINGER'S 1000 ML INJ 1,000 ML IV SCH ×2 (10:50→21:06)
[2017-03-20] MEDS: CLOPIDOGREL 75 MG TAB PO SCH (11:40)
[2017-03-20] MEDS: ASPIRIN EC 81 MG TABEC PO SCH ×2 (11:40→21:05)
[2017-03-20 11:41] VITALS: BP 109/51; PULSE 57; RESP 18; TEMP 95.7; O2SAT 100
[2017-03-20 15:19] VITALS: BP 114/56; PULSE 54; RESP 18; TEMP 95.3; O2SAT 100
--- NOTE | 2017-03-20 18:26 | MP ---
cc: Pati DOTY. 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 OPERATION PERFORMED Right total knee arthroplasty using Shawn Triathlon prosthesis (uncemented) with synovectomy and lateral retinacular release. SURGEON Jean Paul Doty MD [employer] Palmer ANESTHESIA General endotracheal with supplemental adductor canal block and local. INDICATIONS AND FINDINGS This 76-year-old woman has had pain in her right knee for over 5 years. She had arthroscopic surgery by another physician in 1991. She has had progressive worsening of her pain with limited motion and stiffness. She has difficulty going up the steps to her front porch and has to side step these. She has to do the same thing on to the second floor of her home. She is unable to go down these stairs. She has been treated conservatively and nonoperatively by her primary care physician and other physicians with analgesics, nonsteroidal anti-inflammatory agents, activity modification, intra-articular corticosteroids, ambulatory aids. She has not responded to conservative measures. Physical findings showed a range of motion from nearly 0 degrees extension to 75 degrees of flexion maximally. There is severe crepitation on motion. There is some diffuse swelling. There is tenderness in general. There is significant palpable osteophytes. X-rays show significant arthritis in the knee with loss of joint space to [id number] in multiple areas as well as severe osteophytes and the appearance that the patella is more distal than it should be indicative of the patella baja (infera). Operative findings showed severe synovitis in the knee with very large osteophytes. There was significant destruction of bone. The reactive synovitis was consistent with rheumatoid arthritis. This was prolific and throughout the knee. The range of motion on the table was slightly less than 0 degrees extension to 75 degrees of flexion. The patella was very tight and immobile. This patella tendon was shortened. The prosthesis used was a [employer] Triathlon prosthesis with the femur being size 5 right cruciate-retaining Press-Fit, the tibia being a size 5 titanium baseplate also Press-Fit with the spacer being a size 5 x 9 mm cruciate-retaining X3 polyethylene and the patella being a Press-Fit titanium asymmetric patella size 35 mm. The range of motion after surgery was 0 degrees extension to 110 degrees of flexion. PROCEDURE DETAILS The patient was brought to the operating room and placed in a supine position on the operating table. After initial attempt at a spinal anesthetic, a general endotracheal anesthetic was administered. She was again placed in supine position with a bolster under the right hip. An adductor canal block was carried out. The right leg was then prepped with alcohol, Hibiclens and Chloraprep and draped in the usual manner with a knee draped free. An appropriate time-out procedure was carried out. An anterior incision was made from about three fingerbreadths above the superior medial pole of patella down to the tibial tubercle after injecting with local anesthetic. The incision was deepened through the subcutaneous tissues to the retinacular structures which were exposed medially and laterally. Medial retinacular incision was made from the superior medial pole of patella down to the tibial tubercle and up into the quadriceps tendon splitting it longitudinally in the medial one-third. The patella was reflected. Medial and lateral dissection was carried out. Because of the exuberant osteophytes the osteophytes were trimmed from the patella and femur before initiating the major procedure. Some of the synovium was likewise removed. This was therapeutic excision of the synovium because of the extent of the debris. The posterior surface of the patella was excised with the oscillating saw. A patella protector was applied to the posterior surface. The patella was slipped into the lateral gutter. A fenestration was made in the distal end of the femur and proximal end of the tibia for intermedullary referencing guides. The distal femoral cutting guide and jig was assembled for a 5 degree 8-mm cut. The cutting block was stabilized with pins. The jig was removed. The distal femoral cut was completed with the oscillating saw. The 4:1 block was positioned in place for the appropriate size femur. This was stabilized with pins. The anterior cut was made followed by the posterior cut and posterior and anterior chamfer cuts. After these were completed, further osteophytes were trimmed from the femur. Attention was then directed to the tibia. Medial and lateral meniscectomies were completed. The proximal tibia was exposed. An intramedullary referencing guide for the tibial cutting block was positioned in place. This was stabilized with a pin for rotation. The cutting block was positioned according to the stylus. This was stabilized with pins. The jig was removed. The depth of cut was verified with spacer block. The cutting block was stabilized with an extra cross pin. The proximal tibial cut was then completed with the oscillating saw taking care to prevent injury to neurovascular and ligamentous structures. The spacer block was used to verify this cut. The osteophytes were then trimmed from the posterior aspect of the femur and removed from the popliteal fossa. The tibial baseplate trial was checked to see if this was appropriate for a size 5. The spacer was inserted. The femoral trial was positioned in place and impacted into place. The knee was taken through a range of motion which initially was somewhat limited. The patella drill guide was positioned in place. Drill holes were made in the patella. The knee was taken through a range of motion at this point which was 0 degrees extension to 100 degrees of flexion initially. A lateral retinacular release was carried out followed by resection of an additional 1-2 mm from the posterior surface of the patella. The patella was redrilled. The patella trial was positioned again. The knee was taken through range of motion was 0 degrees extension to 110 degrees of flexion. The stability was excellent. Patella tracking was appropriate at this time. The patella trial was removed. Synovectomy was completed. The femoral drill holes were made. The femoral trial was removed. The femoral bone plug was inserted. The tibial bone plug was inserted. The tibial punch was impacted through its guide and removed. After removal of the tibial baseplate, the tibial drill guide was positioned and drill holes made. Local anesthesia was administered throughout the knee with Exparel. Tibial baseplate was impacted into place on a clean and dried proximal tibia and seated appropriately. The 9 mm spacer was inserted. The femoral surface was also cleaned with pulse lavage. The femoral component was impacted into place and seated appropriately. The patella was likewise cleaned and the appropriate size patella affixed to the posterior surface of patella. The remainder of the Exparel was injected throughout the knee. Drains were brought out the superolateral aspect of the suprapatellar pouch. Wound closure then commenced using 0 Vicryl interrupted [id number] sutures for retinacular and capsular structures. 2-0 Vicryl interrupted simple sutures with buried knots was used for the subcutaneous tissues. 4-0 Monocryl continuous subcuticular closure was used for the skin. The wound was dressed with Steri-Strips followed by dry dressing, sterile Sof-Rol, cooling pad, further sterile Sof-Rol and Chapo bandage from the base of the toe to midthigh. The patient was transferred from the operating room to the recovery room in satisfactory condition having tolerated the procedure well. Counts were correct. Specimens none. Estimated blood loss 600 mL. MD TOMMY Sahu/GEMA /1:15 PM /6:09 PM
[2017-03-20 20:15] VITALS: BP 138/67; PULSE 64; RESP 16; TEMP 96.7; O2SAT 98
[2017-03-20] MEDS: DOCUSATE SODIUM 100 MG CAP PO SCH (21:05)
[2017-03-20] MEDS: MAGNESIUM HYDROXIDE SUSP 30 ML CUP PO PRN (21:05)
[2017-03-21 00:20] VITALS: BP 132/60; PULSE 63; RESP 16; TEMP 97.2; O2SAT 96
[2017-03-21] MEDS: KETOROLAC TROMETHAMINE 30 MG/ML (IVP) VIAL IVP SCH ×2 (00:25→05:43)
[2017-03-21] MEDS: ACETAMINOPHEN/HYDROcodone 325 MG/7.5 MG TAB PO PRN ×3 (01:30→20:14)
[2017-03-21 04:35] VITALS: BP 128/59; PULSE 59; RESP 16; TEMP 96.6; O2SAT 96
[2017-03-21] MEDS: INSULIN NovoLIN REGULAR SUPPLEMENTAL SCALE SQ SCH ×4 (05:48→21:00)
[2017-03-21 07:07] VITALS: BP 119/57; PULSE 60; RESP 18; TEMP 96; O2SAT 97
--- NOTE | 2017-03-21 07:26 | PD.ORT.PN ---
Subjective Post Op Day #: 2 Subjective Remarks She is doing well with minimal pain. Range of Motion -10 to 45 degrees. Distance Walked 20 then 40 feet. Objective Vitals Vital Signs Date Time Temp Pulse Resp B/P Pulse Ox O2 Delivery O2 Flow Rate FiO2 03/21/17 04:35 96.6 59 16 128/59 96 03/21/17 00:20 97.2 63 16 132/60 96 03/20/17 20:15 96.7 64 16 138/67 98 03/20/17 15:19 95.3 54 18 114/56 100 03/20/17 11:41 95.7 57 18 109/51 100 03/20/17 10:15 Nasal Cannula 2.00 03/20/17 08:03 95.7 60 18 130/60 97 I/O 03/20/17 03/20/17 03/20/17 03/21/17 03/21/17 03/21/17 07:00 15:00 23:00 07:00 15:00 23:00 Intake Total 895 ml 720 ml 240 ml 240 ml Output Total 70 ml 90 ml 85 ml Balance 825 ml 630 ml 155 ml 240 ml Intake Oral 480 ml 720 ml 240 ml 240 ml IV Total 415 ml Drainage Total 70 ml 90 ml 85 ml # Voids 1 3 1 1 # Bowel Movements 0 0 0 0 Result Diagram: 03/20/17 0351 Imaging Knee x-ray looks good. Last 24 hours Impressions Knee X-Ray 03/19/17 0950 Signed Impressions: Service Date/Time: Sunday, March 19, 2017 14:35 - CONCLUSION: Status post total knee arthroplasty. Albert Ovalle MD Objective Remarks She is resting comfortably, OOB in the chair. Initially, she moves the knee minimally; after reminding her to move the knee, she does so much better. The neurovascular status is intact. The dressing is dry and intact. Assessment & Plan Ortho Post Op Day #: 2 Problem List: (1) Status post total right knee replacement Plan: Continue postop care and PT. I again reminded her that the range of motion that she ultimately attains is dependent upon her efforts in the early postoperative period. Assessment and Plan Condition: Good. Orthopaedically stable. DVT prophylaxis: Resume ASA and Plavix, TEDs, sequentials. Discharge plans: Wants to go to [facility] or, barring that, SNF for rehab.. Has appointment. Rx: [place] 7.5/325. Sharmila Bell MD (Charles) Mar 21, 2017 07:26
[2017-03-21] MEDS: ASPIRIN EC 81 MG TABEC PO SCH ×2 (07:44→20:13)
[2017-03-21] MEDS: METOPROLOL SUCCINATE 50 MG EXTENDED RELEASE TAB PO SCH (07:44)
[2017-03-21] MEDS: DOCUSATE SODIUM 100 MG CAP PO SCH ×2 (07:44→20:13)
[2017-03-21] MEDS: LOSARTAN 25 MG TAB PO SCH (07:44)
[2017-03-21] MEDS: CLOPIDOGREL 75 MG TAB PO SCH (07:44)
[2017-03-21] MEDS: INSULIN HUMAN NPH 1,000 UNITS/10 ML VIAL SQ SCH (08:00)
[2017-03-21] MEDS: SODIUM CHLORIDE 0.9% FLUSH 5 ML FLUSH IVF SCH ×2 (09:00→20:16)
[2017-03-21] MEDS: TIMOLOL MALEATE 0.5% OPHT SOLN 5 ML BTL EACH EYE SCH ×2 (09:00→20:14)
[2017-03-21] MEDS: DORZOLAMIDE 2% OPTH SOLN 200 DROP/10 ML BTLO EACH EYE SCH ×3 (09:00→18:00)
--- NOTE | 2017-03-21 09:34 | HHI.PR ---
Subjective Remarks Follow up right total knee arthroplasty, DM hypertension and RA. Patient seen and examined today, lying in bed comfortably. RN at bedside. Patient complaint of current nausea, given Zofran. Denies emesis. Patient denies any recent fever , chills, cough, ab pain, or diarrhea. Does state she took an extra milk of magnesium, no BM for a couple days. Tolerating PO intake. Spoke to patient about discharge plans, patient requesting rehab. CM assisting. Objective Vitals Vital Signs Date Time Temp Pulse Resp B/P Pulse Ox O2 Delivery O2 Flow Rate FiO2 03/21/17 07:07 96.0 60 18 119/57 97 03/21/17 04:35 96.6 59 16 128/59 96 03/21/17 00:20 97.2 63 16 132/60 96 03/20/17 20:15 96.7 64 16 138/67 98 03/20/17 15:19 95.3 54 18 114/56 100 03/20/17 11:41 95.7 57 18 109/51 100 03/20/17 10:15 Nasal Cannula 2.00 I/O 03/20/17 03/20/17 03/20/17 03/21/17 03/21/17 03/21/17 07:00 15:00 23:00 07:00 15:00 23:00 Intake Total 895 ml 720 ml 240 ml 240 ml Output Total 70 ml 90 ml 85 ml 60 ml Balance 825 ml 630 ml 155 ml 180 ml Intake Oral 480 ml 720 ml 240 ml 240 ml IV Total 415 ml Drainage Total 70 ml 90 ml 85 ml 60 ml # Voids 1 3 1 1 # Bowel Movements 0 0 0 0 Result Diagram: 03/20/17 0351 Imaging Last Impressions Knee X-Ray 03/19/17 0951 Signed Impressions: Service Date/Time: Sunday, March 19, 2017 14:35 - CONCLUSION: Status post total knee arthroplasty. Albert Ovalle MD Objective Remarks GENERAL: Well-developed patient, in no apparent distress. Lying in bed comfortably. Awake and alert. SKIN: Warm and dry. Right splint and postoperative bandage to right knee in place, c/d/i. Passive motion continued. HEENT: Normocephalic. Pupils equal round and reactive. Extraocular motions intact. No scleral icterus. No injection or drainage. Nose without bleeding. Airway patent. NECK: Trachea midline. No JVD. Supple. CARDIOVASCULAR: Regular rate and rhythm. No murmur appreciated. RESPIRATORY: Clear to auscultation. Breath sounds equal bilaterally. No wheezes , rales, or rhonchi. GASTROINTESTINAL: Abdomen soft, non-tender, nondistended. No guarding. NEUROLOGICAL: Awake and alert. Cranial nerves II through XII intact. Motor and sensory grossly within normal limits. Five out of 5 muscle strength in all muscle groups. Normal speech. Procedures Total right knee arthroplasty 03/19/17. A/P Assessment and Plan Ms. Warner is a 76-year-old female with a history of chronic right knee pain secondary to osteoarthritis. She underwent elective total knee arthroplasty with nerve block by Dr. BERENICE Bell. She is stable continue postoperative care with pain management with Lortab, IV ketorolac and IV morphine sulfate, wound care, physical therapy, incentive spirometry and DVT prophylaxis per orthopedic surgery. Status post total right knee arthroplasty - Post op day 2, 03/19/17. - Control pain, Toradol 15 mg IV q6hr. Morphine 4 mg IV q3hr PRN breakthrough pain. [place] 7.5/325 mg PO q4h PRN per pain scale. - No BM as of yet. Monitor for constipation, Colace 100 mg PO BID scheduled and milk of magnesium PRN. - Monitor for nausea, Zofran PRN. - Afebrile. - Dressing changes per orthopedic recommendations. Dressing to right lower extremity in place, c/d/i. Hypertension, chronic: Well controlled on losartan, metoprolol and Norvasc. We' ll provide as needed medications IV Vasotec and clonidine. Continue to monitor. Type 2 Diabetes Mellitus, chronic: Last Hemoglobin A1c, 6.5 on 03/08/17. ACHS ACCU checks, NPH 10 units insulin in am before meals. Follow blood sugars. Glaucoma stable on multiple topical eyedrops, continue as indicated. Coronary artery disease status post stent stable on antiplatelets, aspirin and Lopressor. Chronic anemia with hemoglobin of 10 prior to surgery. Hemoglobin 8.2/ Hematocrit 24.8 today. Apnea not on C Pap. Monitor for desaturations. Supplemental O2 as needed. GERD with esophageal dilation/GI Prophylaxis: Family does not want her to be on PPI 2/2 risk of C diff, states they will discuss with PCP. Also recommended to follow up with GI regarding antireflux mechanisms. DVT Prophylaxis: SCDs. Continue aspirin. Continue Plavix. Discharge Planning Per Dr. Bell recommendation, C is much preferred compared to going to rehab. CM assisting with patient request for rehabilitation. Does not qualify for [place] [place]. Last CM note, 03/21/17-per Linsey,pt does not meet criteria for acute rehab. Discussed with pt,she requested referral to TCU at [facility],called and faxed to Elodia Franklin Mar 21, 2017 09:34
[2017-03-21 10:03] LABS: HEMATOCRIT 24.8 % (35.0-46.0); REVIEW FLAG FINAL
[2017-03-21 12:00] VITALS: BP 145/65; PULSE 56; RESP 18; TEMP 95.7; O2SAT 99
[2017-03-21 15:36] VITALS: BP 147/67; PULSE 57; RESP 18; TEMP 95.8; O2SAT 100
[2017-03-21] MEDS: ONDANSETRON HCL 4 MG/2 ML VIAL IVP PRN (16:20)
[2017-03-21] MEDS ORDERED: SIMETHICONE 80 MG CHEWABLE TAB PO PRN (18:15)
[2017-03-21 20:20] VITALS: BP 150/67; PULSE 55; RESP 17; TEMP 97.7; O2SAT 97
[2017-03-21 20:39] LABS: BACTERIA, URINE RARE /hpf; BLOOD, URINE NEG (NEG); COMMENT (UR) CULT NOT INDICATED; CULTURE IF INDICATED CULT NOT INDICATED; GLUCOSE,URINE NEG (NEG); KETONE, URINE NEG (NEG); NITRITE,URINE NEG (NEG); SQUAMOUS EPITHELIAL CELL URINE 1 /hpf (0-5); URINE COLOR YELLOW (YELLW/STRAW)
[2017-03-21] MEDS: INSULIN HUMAN REGULAR 1,000 UNITS/10 ML VIAL SQ PRN (20:48)
[2017-03-21 22:02] LABS: AUTOMATED NEUTROPHIL # 6.3 TH/MM3 (1.8-7.7); BASOPHIL % 0.3 % (0.0-2.0); EOSINOPHIL # 0.1 TH/MM3 (0-0.4); EOSINOPHIL % 0.6 % (0.0-4.0); HEMATOCRIT 25.2 % (35.0-46.0); HEMO FLAGS DIFF FINAL; LYMPH % 15.8 % (9.0-44.0); LYMPHOCYTE # 1.4 TH/MM3 (1.0-4.8); MEAN CELL VOLUME 91.8 FL (80.0-100.0); MEAN CORPUSCULAR HEMOGLOBIN 29.1 PG (27.0-34.0); MEAN CORPUSCULAR HGB CONC 31.6 % (32.0-36.0); MONO % 10.6 % (0.0-8.0); NEUT % 72.7 % (16.0-70.0); PLATELET COUNT 137 TH/MM3 (150-450); RED BLOOD COUNT 2.75 MIL/MM3 (4.00-5.30); RED CELL DISTRIBUTION WIDTH 15.8 % (11.6-17.2); WHITE BLOOD COUNT 8.7 TH/MM3 (4.0-11.0)
[2017-03-21 22:15] LABS: BICARBONATE 25.2 MEQ/L (21.0-32.0); POTASSIUM 4.5 MEQ/L (3.5-5.1)
[2017-03-22] MEDS: LACTATED RINGER'S 1000 ML INJ 1,000 ML IV SCH ×2 (00:20→08:52)
[2017-03-22 00:25] VITALS: BP 164/70; PULSE 67; RESP 17; TEMP 98.2; O2SAT 97
[2017-03-22] MEDS: ACETAMINOPHEN/HYDROcodone 325 MG/7.5 MG TAB PO PRN ×4 (00:27→17:56)
[2017-03-22 04:35] VITALS: BP 160/70; PULSE 63; RESP 17; TEMP 97.2; O2SAT 100
[2017-03-22] MEDS: ONDANSETRON HCL 4 MG/2 ML VIAL IVP PRN ×2 (04:46→12:38)
[2017-03-22] MEDS: MAGNESIUM HYDROXIDE SUSP 30 ML CUP PO PRN (04:46)
[2017-03-22] MEDS: INSULIN HUMAN REGULAR 1,000 UNITS/10 ML VIAL SQ PRN (06:33)
[2017-03-22] MEDS: INSULIN NovoLIN REGULAR SUPPLEMENTAL SCALE SQ SCH ×3 (07:00→16:00)
--- NOTE | 2017-03-22 07:02 | PD.ORT.PN ---
Subjective Post Op Day #: 3 Subjective Remarks She is still doing well with minimal pain. Range of Motion -5 to 86 degrees. Distance Walked 12, then 100 feet. Objective Vitals Vital Signs Date Time Temp Pulse Resp B/P Pulse Ox O2 Delivery O2 Flow Rate FiO2 03/22/17 04:35 97.2 63 17 160/70 100 03/22/17 00:25 98.2 67 17 164/70 97 03/21/17 20:20 97.7 55 17 150/67 97 03/21/17 20:00 97 Room Air 03/21/17 15:36 95.8 57 18 147/67 100 03/21/17 12:00 95.7 56 18 145/65 99 03/21/17 07:07 96.0 60 18 119/57 97 I/O 03/21/17 03/21/17 03/21/17 03/22/17 03/22/17 03/22/17 07:00 15:00 23:00 07:00 15:00 23:00 Intake Total 240 ml 660 ml 240 ml 240 ml Output Total 60 ml Balance 180 ml 660 ml 240 ml 240 ml Intake Oral 240 ml 660 ml 240 ml 240 ml Drainage Total 60 ml # Voids 1 3 1 2 # Bowel Movements 0 0 0 0 Result Diagram: 03/21/17213303/21/172133 Imaging Knee x-ray looks good. Last 24 hours Impressions Knee X-Ray 03/19/17 0950 Signed Impressions: Service Date/Time: Sunday, March 19, 2017 14:35 - CONCLUSION: Status post total knee arthroplasty. Albert Ovalle MD Objective Remarks She is resting comfortably, supine in bed in the CPM. There is no erythema nor induration. The neurovascular status is intact. The dressing is dry and intact. Assessment & Plan Ortho Post Op Day #: 3 Problem List: (1) Status post total right knee replacement Plan: Continue postop care and PT. I again reminded her that the range of motion that she ultimately attains is dependent upon her efforts in the early postoperative period. Assessment and Plan Condition: Good. Orthopaedically stable. DVT prophylaxis: Resume ASA and Plavix, TEDs, sequentials. Discharge plans: Wants to go to [facility] or, barring that, SNF for rehab.. Has appointment. Rx: [place] 7.5/325. Sharmila Bell MD (Charles) Mar 22, 2017 07:02 Sharmila Bell MD (Charles) Mar 22, 2017 07:02
[2017-03-22 08:00] VITALS: BP 145/68; PULSE 59; RESP 16; TEMP 97.4; O2SAT 99
[2017-03-22] MEDS: INSULIN HUMAN NPH 1,000 UNITS/10 ML VIAL SQ SCH (08:00)
[2017-03-22] MEDS: ASPIRIN EC 81 MG TABEC PO SCH (08:35)
[2017-03-22] MEDS: DOCUSATE SODIUM 100 MG CAP PO SCH (08:36)
[2017-03-22] MEDS: CLOPIDOGREL 75 MG TAB PO SCH (08:41)
[2017-03-22] MEDS: LOSARTAN 25 MG TAB PO SCH (08:42)
[2017-03-22] MEDS: METOPROLOL SUCCINATE 50 MG EXTENDED RELEASE TAB PO SCH (08:42)
[2017-03-22] MEDS: TIMOLOL MALEATE 0.5% OPHT SOLN 5 ML BTL EACH EYE SCH (08:46)
[2017-03-22] MEDS: DORZOLAMIDE 2% OPTH SOLN 200 DROP/10 ML BTLO EACH EYE SCH ×3 (08:46→18:15)
[2017-03-22] MEDS: SODIUM CHLORIDE 0.9% FLUSH 5 ML FLUSH IVF SCH (08:46)
--- NOTE | 2017-03-22 10:02 | HHI.PR ---
Subjective Remarks resting comfortably with no distress. has some pain to the lower back. Objective Vitals Vital Signs Date Time Temp Pulse Resp B/P Pulse Ox O2 Delivery O2 Flow Rate FiO2 03/22/17 08:00 97.4 59 16 145/68 99 03/22/17 04:35 97.2 63 17 160/70 100 03/22/17 00:25 98.2 67 17 164/70 97 03/21/17 20:20 97.7 55 17 150/67 97 03/21/17 20:00 97 Room Air 03/21/17 15:36 95.8 57 18 147/67 100 03/21/17 12:00 95.7 56 18 145/65 99 I/O 03/21/17 03/21/17 03/21/17 03/22/17 03/22/17 03/22/17 07:00 15:00 23:00 07:00 15:00 23:00 Intake Total 240 ml 660 ml 240 ml 240 ml Output Total 60 ml Balance 180 ml 660 ml 240 ml 240 ml Intake Oral 240 ml 660 ml 240 ml 240 ml Drainage Total 60 ml # Voids 1 3 1 2 # Bowel Movements 0 0 0 0 Result Diagram: 03/21/17213303/21/172133 Imaging Last Impressions Knee X-Ray 03/19/17 0950 Signed Impressions: Service Date/Time: Sunday, March 19, 2017 14:35 - CONCLUSION: Status post total knee arthroplasty. Albert Ovalle MD Objective Remarks GENERAL: This is a well-nourished, well-developed patient, in no apparent distress. CARDIOVASCULAR: Regular rate and regular rhythm without murmurs, gallops, or rubs. RESPIRATORY: Clear to auscultation. Breath sounds equal bilaterally. No wheezes , rales, or rhonchi. GASTROINTESTINAL: Abdomen soft, non-tender, nondistended. Normal, active bowel sounds MUSCULOSKELETAL: Extremities without clubbing, cyanosis, or edema. NEURO: Alert & Oriented x4 to person, place, time, situation. Moves all ext x4 Procedures Total right knee arthroplasty 03/19/17. Medications and IVs Current Medications Lactated Ringer's 1,000 ml @ 30 mls/hr Q24H PRN IV SEE LABEL COMMENTS Last administered on 03/19/17t 08:30; Start 03/19/17 at 08:30; Stop 03/22/17 at 08:29; Status DC Sodium Chloride (NS 500 ml Inj) 500 ml @ 30 mls/hr [id number] PRN IV SEE LABEL COMMENTS; Start 03/19/17 at 08:30; Stop 03/22/17 at 08:29; Status DC Metoprolol Tartrate (Lopressor) 25 mg [employer] PRN PO SEE LABEL COMMENTS Last administered on 03/19/17 09:04; Start 03/19/17 at 08:30; Stop 03/22/17 at 08:29; Status DC Povidone Iodine (Betadine 5% Antisepsis Kit) 1 applic [employer] PRN EACH NARE SEE LABEL COMMENTS Last administered on 03/19/17 08:30; Start 03/19/17 at 08:30; Stop 03/22/17 at 08:29; Status DC Chlorhexidine Gluconate (Chlorhexidine 2% Cloth) 3 pack [employer] PRN TOPICAL SEE LABEL COMMENTS Last administered on 03/19/17 08:30; Start 03/19/17 at 08:30; Stop 03/22/17 at 08:29; Status DC Insulin Human Regular (NovoLIN R INJ) See Protocol Table ... [employer] PRN SQ SEE PROTOCOL TABLE Last administered on 03/22/17 06:33; Start 03/19/17 at 08:30; Stop 03/22/17 at 08:29; Status DC Chlorhexidine Gluconate 1 applic 1 applic ONCE TOPICAL Last administered on 03/19 08:30; Start 03/19/17 at 08:30; Stop 03/22/17 at 08:29; Status DC Cefazolin Sodium/ Dextrose 50 ml @ 100 mls/hr [employer] IV Last administered on 03/19/17 10:01; Start 03/19/17 at 08:30; Stop 03/22/17 at 08:29; Status DC Tranexamic Acid 1030 mg/Sodium Chloride 110.3 ml @ 200 mls/hr ONCE IV Last administered on 03/19/17 10:01; Start 03/19/17 at 10:00; Stop 03/20/17 at 16:00; Status DC Tranexamic Acid 1030 mg/Sodium Chloride 110.3 ml @ 200 mls/hr ONCE IV Last administered on 03/19/17 14:19; Start 03/19/17 at 13:00; Stop 03/20/17 at 19:00; Status DC Bupivacaine Liposome/Sodium Chloride (Exparel Pf 1.3% Inj/NS Inj) 100 ml @ 200 mls/hr ONCE P-ARTICULR Last administered on 03/19/17 11:16; Start 03/19/17 at 10 :00; Stop 03/20/17 at 16:00; Status DC Gentamicin Sulfate (Gentamicin Inj) 80 mg STK-MED ONCE .ROUTE ; Start 03/19/17 at 08:18; Stop 03/19/17 at 08:19; Status DC Gentamicin Sulfate (Gentamicin Inj) 160 mg STK-MED ONCE .ROUTE Last administered on 03/19/17 11:14; Start 03/19/17 at 08:18; Stop 03/19/17 at 08:19; Status DC Famotidine (Pepcid Inj) 20 mg STK-MED ONCE .ROUTE ; Start 03/19/17 at 09:38; Stop 03/19/17 at 09:39; Status DC Dexamethasone Sodium Phosphate (Decadron Inj) 4 mg STK-MED ONCE .ROUTE ; Start 03/19/17 at 09:38; Stop 03/19/17 at 09:39; Status DC Metoclopramide HCl (Reglan Inj) 10 mg STK-MED ONCE .ROUTE ; Start 03/19/17 at 09: 39; Stop 03/19/17 at 09:40; Status DC Albuterol Sulfate 200 puff 200 puff STK-MED ONCE INH ; Start 03/19/17 at 09:46; Stop 03/19/17 at 09:47; Status DC Lactated Ringer's (Lr 1000 ml Inj) 1,000 ml @ 80 mls/hr [id number] IV ; Start 03/19 at 09:50 IV Flush (NS Flush) 2 ml UNSCH PRN IVF FLUSH AFTER USING IV ACCESS; Start at 10:00 IV Flush 2 ml 2 ml BID IVF Last administered on 03/22/17 08:46; Start 03/19/17 at 21:00 Cefazolin Sodium/ Sodium Chloride (Ancef Inj/NS Inj) 100 ml @ 200 mls/hr Q6H IV Last administered on 03/20/17 03:45; Start 03/19/17 at 16:00; Stop 03/20/17 at 04:29; Status DC Miscellaneous Information (Post-op Orders (for Pharmacy)) STAT ONCE XX ; Start 03/19/17 at 10:00; Stop 03/19/17 at 12:24; Status DC Morphine Sulfate (Morphine Inj) 4 mg Q3H PRN IV PUSH BREAKTHROUGH PAIN; Start 03/19/17 at 10:00 Acetaminophen/ Hydrocodone Bitart ([place] 7.5-325 Mg) 1 tab Q4H PRN PO PAIN LESS THAN 5 ON SCALE Last administered on 03/22/17 04:51; Start 03/19/17 at 10:00 Acetaminophen/ Hydrocodone Bitart ([place] 7.5-325 Mg) 2 tab Q4H PRN PO PAIN SCALE 5 TO 10; Start 03/19/17 at 10:00 Ketorolac Tromethamine 15 mg 15 mg Q6H IVP Last administered on 03/21/17 05:43 ; Start 03/19/17 at 12:00; Stop 03/21/17 at 06:01; Status DC Tranexamic Acid/ Sodium Chloride (Cyklokapron Inj/ NS Inj) 100 ml @ 200 mls/hr UNSCH IV ; Start 03/19/17 at 10:00; Stop 03/19/17 at 10:00; Status DC Ondansetron HCl (Zofran Inj) 4 mg Q6H PRN IVP NAUSEA OR VOMITING Last administered on 03/22/17 04:46; Start 03/19/17 at 10:00 Docusate Sodium (Colace) 100 mg BID PO Last administered on 03/22/17 08:36; Start 03/20/17 at 21:00 Zolpidem Tartrate (Ambien) 5 mg HS PRN PO SLEEP; Start 03/19/17 at 10:00 Magnesium Hydroxide (Milk Of Magnesia Liq) 30 ml DAILY PRN PO CONSTIPATION Last administered on 03/22/17 04:46; Start 03/19/17 at 10:00 Aspirin (Ecotrin Ec) 81 mg BID PO Last administered on 03/22/17 08:35; Start at 12:00 Amlodipine Besylate (Norvasc) 10 mg DAILY PO Last administered on 03/22/17 08: 35; Start 03/20/17 at 09:00 Dorzolamide HCl (Trusopt 2% Opth Soln) 1 drop TID EACH EYE Last administered on 03/22/17 08:46; Start 03/19/17 at 13:00 Losartan Potassium (Cozaar) 25 mg DAILY PO ; Start 03/20/17 at 09:00; Stop at 09:00; Status DC Metoprolol Succinate (Toprol Xl) 50 mg DAILY PO Last administered on 03/22/17 08:42; Start 03/20/17 at 09:00 Timolol Maleate (Timoptic 0.5% Opth Soln) 1 drop BID EACH EYE Last administered on 03/22/17 08:46; Start 03/19/17 at 21:00 Losartan Potassium (Cozaar) 25 mg DAILY PO Last administered on 03/22/17 08:42 ; Start 03/20/17 at 09:00 Enalaprilat (Vasotec Inj) 1.25 mg Q6H PRN IV SBP> OR = 180, DBP> OR = 100; Start 03/19/17 at 12:00 Clonidine (Catapres) 0.1 mg Q6H PRN PO SBP> OR = 180, DBP> OR = 100; Start 03/19 at 12:00 Dextrose (D50w (Vial) Inj) 50 ml UNSCH PRN IV HYPOGLYCEMIA-SEE COMMENTS; Start 03/19/17 at 12:00 Glucagon (Glucagon Inj) 1 mg UNSCH PRN OTHER HYPOGLYCEMIA-SEE COMMENTS; Start 03/19/17 at 12:00 Insulin Aspart (NovoLOG SUPPLEMENTAL SCALE) 1 ACHS SLIDING SCALE SQ Last administered on 03/19/17 16:00; Start 03/19/17 at 16:00; Stop 03/19/17 at 21:32; Status DC Miscellaneous Information ALL NURSING DEPARTME... UNSCH PRN .XX SEE LABEL COMMENTS; Start 03/19/17 at 13:45; Stop 03/20/17 at 13:44; Status DC Midazolam HCl (Versed Inj) 2 mg STK-MED ONCE .ROUTE ; Start 03/19/17 at 13:45; Stop 03/19/17 at 13:46; Status DC Fentanyl Citrate (fentaNYL INJ) 200 mcg STK-MED ONCE .ROUTE ; Start 03/19/17 at 13:46; Stop 03/19/17 at 13:47; Status DC Ondansetron HCl (*ZOFRAN INJ PERIprocedural ONLY) 4 mg STK-MED ONCE .ROUTE Last administered on 03/19/17 13:58; Start 03/19/17 at 13:58; Stop 03/19/17 at 13: 59; Status DC Albuterol Sulfate (Albuterol Neb) 2.5 mg Q2HR NEB PRN NEB SHORTNESS OF BREAH; Start 03/19/17 at 16:00 Insulin Human NPH (NovoLIN N INJ) 10 units DAILY@08 SQ Last administered on 03/22 08:00; Start 03/20/17 at 08:00 Insulin Human Regular (NovoLIN R SUPPLEMENTAL SCALE) 1 ACHS SLIDING SCALE SQ ; Start 03/20/17 at 07:00; Stop 03/20/17 at 07:00; Status DC Insulin Human Regular (NovoLIN R SUPPLEMENTAL SCALE) 1 ACHS SLIDING SCALE SQ Last administered on 03/21/17 21:00; Start 03/19/17 at 22:00 Clopidogrel Bisulfate (Plavix) 75 mg DAILY PO Last administered on 03/22/17 08: 41; Start 03/20/17 at 09:00 Bupivacaine HCl (Marcaine Pf 0.5% Inj) 20 ml STK-MED ONCE NERV BLOCK ; Start 03/19/17 at 08:47; Stop 03/21/17 at 08:47; Status DC Simethicone (Mylicon Chew) 40 mg QID PRN PO GAS Last administered on 03/22/17 06:47; Start 03/21/17 at 18:15 A/P Assessment and Plan Status post total right knee arthroplasty - continue with pain control. -management per ortho. Hypertension, chronic: Well controlled on losartan, metoprolol and Norvasc. We' ll provide as needed medications IV Vasotec and clonidine. Continue to monitor. Type 2 Diabetes Mellitus, chronic: Last Hemoglobin A1c, 6.5 on 03/08/17. ACHS ACCU checks, NPH 10 units insulin in am before meals. Follow blood sugars. Glaucoma stable on multiple topical eyedrops, continue as indicated. Coronary artery disease status post stent stable on antiplatelets, aspirin and Lopressor. Chronic anemia with hemoglobin of 10 prior to surgery. Hemoglobin 8.2/ Hematocrit 24.8 today. Apnea not on C Pap. Monitor for desaturations. Supplemental O2 as needed. GERD with esophageal dilation/GI Prophylaxis: Family does not want her to be on PPI 2/2 risk of C diff, states they will discuss with PCP. Also recommended to follow up with GI regarding antireflux mechanisms. DVT Prophylaxis: SCDs. Continue aspirin. Continue Plavix. Sae Damon MD Mar 22, 2017 10:02
[2017-03-22 12:00] VITALS: BP 157/57; PULSE 64; RESP 18; TEMP 96.8; O2SAT 100
[2017-03-22 16:00] VITALS: BP 159/66; PULSE 61; RESP 17; TEMP 97.3; O2SAT 100
[2017-03-22] MEDS ORDERED: BISACODYL 10 MG SUPP RECTAL ONE (16:15)
== END 2017-03-22 19:54 | DRG 470 ==
LOC: HSDI 03-19 07:44 → N06A 03-19 16:26
PROVIDERS: ADMIT Orthopaedic Surgery; ATTEND Orthopaedic Surgery
PROC: 0SBC0ZZ Excision of Right Knee Joint, Open Approach (ICD-10-PCS; 2017-03-19)
PROC: 0MNN0ZZ Release Right Knee Bursa and Ligament, Open Approach (ICD-10-PCS; 2017-03-19)
PROC: 0SRC0JA Replacement of Right Knee Joint with Synthetic Substitute, Uncemented, Open Approach (ICD-10-PCS; principal; 2017-03-19 09:41)
DX: M17.11 Unilateral primary osteoarthritis, right knee (principal); D64.9 Anemia, unspecified; E11.9 Type 2 diabetes mellitus without complications; M06.9 Rheumatoid arthritis, unspecified; I10 Essential (primary) hypertension; H40.9 Unspecified glaucoma; I25.10 Atherosclerotic heart disease of native coronary artery without angina pectoris; K21.9 Gastro-esophageal reflux disease without esophagitis; M65.9 Synovitis and tenosynovitis, unspecified; M79.7 Fibromyalgia; J45.909 Unspecified asthma, uncomplicated; Z87.891 Personal history of nicotine dependence; Z95.5 Presence of coronary angioplasty implant and graft
CPT/HCPCS: 36415; 73560; 80048; 81001; 82948; 85014; 85018; 85025; 86850; 86900; 86901; 94150; C1776; C9290; J0690; J1100; J1580; J1815; J1885; J2250; J2405; J2765; J3010; J7120

== ENCOUNTER → 2017-03-08 | Outpatient (CLI) | payer MEDICARE, OTHER ==
[~2017-03-08] MED LIST changes: +CLOP75TA PO; +HYDR-3516 PO; +VITA2000 PO
[2017-03-08 08:54] LABS: HEMATOCRIT 32.2 % (35.0-46.0); MEAN CORPUSCULAR HEMOGLOBIN 28.5 PG (27.0-34.0); MEAN CORPUSCULAR HGB CONC 31.7 % (32.0-36.0); PLATELET COUNT 159 TH/MM3 (150-450); RED BLOOD COUNT 3.58 MIL/MM3 (4.00-5.30); REVIEW FLAG FINAL; WHITE BLOOD COUNT 6.2 TH/MM3 (4.0-11.0)
[2017-03-08 08:56] LABS: ANION GAP 7 MEQ/L (5-15); BICARBONATE 23.7 MEQ/L (21.0-32.0); BLOOD UREA NITROGEN 18 MG/DL (7-18); CHLORIDE 109 MEQ/L (98-107); POTASSIUM 4.2 MEQ/L (3.5-5.1); SODIUM (NA) 140 MEQ/L (136-145)
[2017-03-08 08:58] LABS: AST (GOT) 14 U/L (15-37); GLOMERULAR FILTRATION RATE 74 ML/MIN (>89); GLUCOSE,FASTING 127 MG/DL (74-99)
[2017-03-08 09:07] LABS: ALKALINE PHOSPHATASE 111 U/L (45-117); ALT (GPT) 16 U/L (10-53); HDL CHOLESTEROL 72.4 MG/DL (40.0-60.0); LDL CHOLESTEROL 72 MG/DL (0-99); TOTAL BILIRUBIN ADULT 0.2 MG/DL (0.2-1.0)
[2017-03-08 15:56] LABS: HEMOGLOBIN A1a 1.1 %; HEMOGLOBIN A1b 1.8 %; HEMOGLOBIN Ao 83.9 %; HEMOGLOBIN LA1C 2.1 %; HEMOGLOBIN P3 4.2 %
== END ==
LOC: CLAB 07:56
DX: E78.5 Hyperlipidemia, unspecified (principal); D64.9 Anemia, unspecified; E11.9 Type 2 diabetes mellitus without complications; E03.9 Hypothyroidism, unspecified; Z13.228 Encounter for screening for other metabolic disorders
CPT/HCPCS: 36415; 80053; 80061; 83036; 84443; 85027

== ENCOUNTER → 2017-03-09 | Outpatient (CLI) | payer MEDICARE, OTHER ==
[~2017-03-09] MED LIST changes: +HYDR-3580 PO
[2017-03-09 08:54] LABS: HEMATOCRIT 32.2 % (35.0-46.0); MEAN CELL VOLUME 89.7 FL (80.0-100.0); MEAN CORPUSCULAR HEMOGLOBIN 28.9 PG (27.0-34.0); MEAN CORPUSCULAR HGB CONC 32.2 % (32.0-36.0); PLATELET COUNT 158 TH/MM3 (150-450); RED BLOOD COUNT 3.59 MIL/MM3 (4.00-5.30); RED CELL DISTRIBUTION WIDTH 15.7 % (11.6-17.2); REVIEW FLAG FINAL; WHITE BLOOD COUNT 6.1 TH/MM3 (4.0-11.0)
[2017-03-09 09:07] LABS: APTT (PATIENT) 27.5 SEC (24.3-30.1)
[2017-03-09 10:06] LABS: BACTERIA, URINE FEW /hpf; BLOOD, URINE TRACE (NEG); GLUCOSE,URINE NEG (NEG); KETONE, URINE NEG (NEG); NITRITE,URINE NEG (NEG); SQUAMOUS EPITHELIAL CELL URINE <1 /hpf (0-5); URINE COLOR YELLOW (YELLW/STRAW)
[2017-03-09 10:14] LABS: COMMENT (UR) CATH-CULTURE IND; CULTURE IF INDICATED CATH CULTURE IND
[2017-03-09 11:10] LABS: BICARBONATE 23.7 MEQ/L (21.0-32.0); POTASSIUM 3.9 MEQ/L (3.5-5.1)
== END ==
LOC: CPRE 08:23
PROVIDERS: ATTEND Orthopaedic Surgery
DX: Z01.812 Encounter for preprocedural laboratory examination (principal); M17.11 Unilateral primary osteoarthritis, right knee; M79.609 Pain in unspecified limb; I10 Essential (primary) hypertension; R82.99 Other abnormal findings in urine; B96.20 Unspecified Escherichia coli [E. coli] as the cause of diseases classified elsewhere
CPT/HCPCS: 36415; 80048; 81001; 85027; 85610; 85730; 87077; 87086; 87186

== ENCOUNTER → 2017-03-16 | Outpatient (CLI) | payer MEDICARE, OTHER ==
[2017-03-16 09:21] LABS: BACTERIA, URINE RARE /hpf; BLOOD, URINE NEG (NEG); COMMENT (UR) CATH-CULTURE IND; CULTURE IF INDICATED CATH CULTURE IND; GLUCOSE,URINE NEG (NEG); KETONE, URINE NEG (NEG); MUCUS URINE FEW /lpf (OCC); NITRITE,URINE NEG (NEG); SQUAMOUS EPITHELIAL CELL URINE 1 /hpf (0-5); URINE COLOR YELLOW (YELLW/STRAW)
== END ==
LOC: CPRE 08:15
PROVIDERS: ATTEND Orthopaedic Surgery
DX: Z01.812 Encounter for preprocedural laboratory examination (principal); N39.0 Urinary tract infection, site not specified
CPT/HCPCS: 81001; 87086

== ENCOUNTER → 2017-04-10 | Outpatient (CLI) | payer MEDICARE, OTHER ==
[~2017-04-10] MED LIST changes: -PLAQ200T PO; -VITA2000 PO
[2017-04-10 12:40] LABS: BICARBONATE 23.6 MEQ/L (21.0-32.0)
== END ==
LOC: CLAB 11:18
PROVIDERS: ATTEND Family Medicine
DX: E11.9 Type 2 diabetes mellitus without complications (principal)
CPT/HCPCS: 36415; 80048

== ENCOUNTER 2017-05-17 10:13 | Emergency (ER) | payer MEDICARE, OTHER ==
[~2017-05-17] VITALS: Ht 160 cm; Wt 100.0 kg
[2017-05-17 10:16] VITALS: BP 226/89; PULSE 72; RESP 20; TEMP 97.8; O2SAT 99
[2017-05-17 10:27] VITALS: BP 162/81; PULSE 61; RESP 21; TEMP 98.2; O2SAT 100
[2017-05-17 10:45] VITALS: O2SAT 100
[2017-05-17] MEDS ORDERED: SODIUM CHLORIDE 0.9% FLUSH 10 ML FLUSH IVF PRN (11:00)
--- NOTE | 2017-05-17 11:18 | PD ---
HPI . Chest pain Chief Complaint: Chest Pain Time Seen by Provider: 10:52 Travel History International Travel<30 days: No Contact w/Intl Traveler<30days: No Traveled to known affect area: No History of Present Illness HPI This patient presents complaining with some cold symptoms. She states that it started as a sore throat and then seemed to move to her chest. Her chest symptoms started 2 days ago. She is complaining with some shortness of breath and chest discomfort. She also complains of fatigue. She has had a nonproductive cough, sore throat, rhinorrhea and nasal congestion. She states that her symptoms seem to be worse when she is moving around. She has not noted any relieving symptoms. She has not tried any [id number] medications prior to presentation. She reports no known fever. Her symptoms are mild. PFSH Past Medical History Hx Anticoagulant Therapy: Yes (plavix aspirin) Anemia: Yes Arthritis: Yes (RHEUMATOID AND OSTEO) Asthma: Yes Blood Disorders: No Anxiety: Yes Depression: No Heart Rhythm Problems: Yes Cancer: No Cardiac Catheterization: Yes (IN 2004) Cardiovascular Problems: Yes Chemotherapy: No Chest Pain: Yes Coronary Artery Disease: Yes Diabetes: Yes (TYPE 2) Patient Takes Glucophage: No Diminished Hearing: No Diverticulitis: Yes Endocrine: Yes Fibromyalgia: Yes Gastrointestinal Disorders: Yes (GERD, OCCASIONAL N/V, ESOPHAGEAL STRICTURE/ DILATION) GERD: Yes Glaucoma: Yes Genitourinary: Yes (recent bladder infection) Headaches: Yes Hepatitis: No Hiatal Hernia: Yes Hypertension: Yes Immune Disorder: Yes (RHEUMATOID ARTHRITIS) Inguinal Hernia: Yes Implanted Vascular Access Dvce: Yes Kidney Stones: Yes Musculoskeletal: Yes (BACK/NECK PROBLEMS, RHEUMATOID & OSTEOARTHRITIS) Psychiatric: Yes (CLAUSTROPHOBIC) Reproductive: Yes (DX RECENTLY WITH ENLARGED UTERUS) Respiratory: Yes (ASTHMA) Immunizations Current: Yes Pneumonia: Yes Radiation Therapy: No Sickle Cell Disease: No Sleep Apnea: Yes (NO CPAP USE) Thyroid Disease: Yes (HX OF, NOT ON MEDICATION CURRENTLY) PNEUMOCCOCAL Vaccine (Year): 2009 ?: Not Menopausal: Yes : 3 Para: 2 Miscarriage: 1 Dilation and Curettage (D&C): Yes Tubal Ligation: Yes Past Surgical History Abdominal Surgery: Yes (RT INGUINAL HERNIA) AICD: No Arteriovenous Shunt: No Body Medical Devices: Stents X2, hernia mesh Cardiac Surgery: Yes (CARDIAC STENTS X 2) Section: Yes Coronary Stent: Yes (X 2) Ear Surgery: No Endocrine Surgery: No Eye Surgery: Yes (GLAUCOMA SURGERY R EYE, BILATERAL CATARACT REMOVED) Genitourinary Surgery: No Gynecologic Surgery: Yes (D & C X 3, TUBAL LIGATION) Insulin Pump: No Joint Replacement: No Neurologic Surgery: No Oral Surgery: No Pacemaker: No Thoracic Surgery: No Other Surgery: Yes Social History Alcohol Use: No Tobacco Use: No (QUIT IN 1979) Substance Use: No Allergies-Medications (Allergen,Severity, Reaction): Coded Allergies: benzalkonium chloride (Unverified Allergy, Intermediate, Redness, 05/17/17) brimonidine (Unverified Allergy, Intermediate, Redness, 05/17/17) travoprost (Unverified Allergy, Intermediate, Redness, 05/17/17) ciprofloxacin (Unverified Allergy, Mild, itching and swelling, 05/17/17) sulfamethoxazole (Unverified Allergy, Unknown, 05/17/17) trimethoprim (Unverified Allergy, Unknown, 05/17/17) levofloxacin (Unverified Adverse Reaction, Severe, WEAKNESS, 05/17/17) Reported Meds & Prescriptions Reported Meds & Active Scripts Active Reported Clopidogrel (Clopidogrel Bisulfate) 75 Mg Tab 75 Mg PO DAILY Hydrocodone-Acetaminophen 5-325 mg Tab 1 Tab PO Q4H PRN Timolol Opth Drops 0.5 % Soln 1 Drop EACH EYE BID Amlodipine (Amlodipine Besylate) 10 Mg Tab 10 Mg PO DAILY Aspirin Low Dose (Aspirin) 81 Mg Chew 162 Mg CHEW DAILY Refresh Opth Drops (Polyvinyl Alcohol-Povidone Opth Drops) 1.4-0.6% Drops 1-2 Drop EACH EYE PRN PRN Dorzolamide Opth Drops (Dorzolamide HCl) 2% Soln 1 Drop EACH EYE TID Metoprolol Succinate ER 24 HR (Metoprolol Succinate) 50 Mg Tab 50 Mg PO DAILY Losartan (Losartan Potassium) 25 Mg Tab 25 Mg PO DAILY Novolin 70-30 Inj (Insulin Human Isoph/Insulin Regular) 1,000 Unit/10 Ml Vial 1 Units SQ SLIDING SCALE Review of Systems Except as stated in HPI: all other systems reviewed are Neg General / Constitutional: No: Fever, Chills HENT: Positive: Sore Throat, Rhinorrhea, Congestion Cardiovascular: Positive: Chest Pain or Discomfort Respiratory: Positive: Shortness of Breath Gastrointestinal: No: Nausea, Vomiting, Diarrhea Physical Exam Narrative GENERAL: Awake and alert and in no acute distress. SKIN: warm/dry. HEAD: Atraumatic. Normocephalic. EYES: Pupils equal and round. No scleral icterus. No injection or drainage. ENT: Minimal mucopurulent nasal drainage. Mucous membranes pink and moist. NECK: Trachea midline. Full range of motion. CARDIOVASCULAR: Regular rate and rhythm. Heart sounds are normal. RESPIRATORY: No accessory muscle use. Clear to auscultation. Breath sounds equal bilaterally. GASTROINTESTINAL: Abdomen soft. Nontender. Nondistended. MUSCULOSKELETAL: No obvious deformities. No edema. NEUROLOGICAL: Awake and alert. No obvious cranial nerve deficits. Motor grossly within normal limits. Normal speech. PSYCHIATRIC: Appropriate mood and affect; insight and judgment normal. Data Data Last Documented VS Vital Signs Date Time Temp Pulse Resp B/P (MAP) Pulse Ox O2 Delivery O2 Flow Rate FiO2 05/17/17 10:45 100 Room Air 05/17/17 10:45 05/17/17 10:27 64 21 05/17/17 10:27 98.2 Orders Orders Complete Blood Count With Diff (05/17/17 10:52) Basic Metabolic Panel (Bmp) (05/17/17 10:52) Troponin I (05/17/17 10:52) Influenzae A/B Antigen (05/17/17 10:52) Iv Access Insert/Monitor (05/17/17 10:52) Electrocardiogram (05/17/17 10:52) Ecg Monitoring (05/17/17 10:52) Oximetry (05/17/17 10:52) Oxygen Administration (05/17/17 10:52) Chest, Single Ap (05/17/17 10:52) Sodium Chloride 0.9% Flush (Ns Flush) (05/17/17 11:00) Labs Laboratory Tests Test 05/17/17 11:05 White Blood Count 5.8 TH/MM3 Red Blood Count 3.66 MIL/MM3 Hemoglobin 10.7 GM/DL Hematocrit 32.3 % Mean Corpuscular Volume 88.1 FL Mean Corpuscular Hemoglobin 29.3 PG Mean Corpuscular Hemoglobin Concent 33.3 % Red Cell Distribution Width 17.7 % Platelet Count 195 TH/MM3 Mean Platelet Volume 9.6 FL Neutrophils (%) (Auto) 76.2 % Lymphocytes (%) (Auto) 15.3 % Monocytes (%) (Auto) 6.4 % Eosinophils (%) (Auto) 1.4 % Basophils (%) (Auto) 0.7 % Neutrophils # (Auto) 4.4 TH/MM3 Lymphocytes # (Auto) 0.9 TH/MM3 Monocytes # (Auto) 0.4 TH/MM3 Eosinophils # (Auto) 0.1 TH/MM3 Basophils # (Auto) 0.0 TH/MM3 CBC Comment DIFF FINAL Differential Comment Blood Urea Nitrogen 13 MG/DL Creatinine 1.07 MG/DL Random Glucose 202 MG/DL Calcium Level 9.0 MG/DL Sodium Level 137 MEQ/L Potassium Level 4.1 MEQ/L Chloride Level 105 MEQ/L Carbon Dioxide Level 25.8 MEQ/L Anion Gap 6 MEQ/L Estimat Glomerular Filtration Rate 60 ML/MIN Troponin I LESS THAN 0.02 NG/ML MDM Medical Decision Making Medical Screen Exam Complete: Yes Emergency Medical Condition: Yes Medical Record Reviewed: Yes (medical history is significant for glaucoma, osteoarthritis, rheumatoid arthritis, chronic renal insufficiency, diabetes, coronary artery disease status post PTCA, diverticulitis, hypertension and hyperlipidemia) Interpretation(s) EKG shows a normal sinus rhythm with LVH. No acute ischemic changes. Differential Diagnosis Differential diagnosis of chest pain includes but is not limited to musculoskeletal pain, pulmonary embolism, acute coronary syndrome, pneumonia, pleurisy Narrative Course This patient presents with cold symptoms. She does complain of chest pain. She does have cardiac risk factors. Cardiac workup has been initiated. However , I believe that she just has a cold. CBC & BMP Diagram 05/17/17 11:05 Calcium Level 9.0 Cardiac enzymes are negative. Chest x-ray is negative. It has been independently viewed by me. So this patient has a cold. She will be discharged home. Supportive treatment. Diagnosis Primary Impression: Chest pain Qualified Codes: R07.9 - Chest pain, unspecified Additional Impressions: Shortness of breath Upper respiratory infection Qualified Codes: J06.9 - Acute upper respiratory infection, unspecified; B97.89 - Other viral agents as the cause of diseases classified elsewhere Referrals: Primary Care Physician For any further problems Additional Instructions: I recommend the use of a Neti Pot. You may use a nasal spray such as Afrin for up to 3 days as needed for nasal congestion. You may take an sxvd-jdh-fozgyov antihistamine such as Zyrtec, Abbie or Claritin as needed for runny secretions. You may take pseudoephedrine as needed for congestion. You will need to sign for this at the pharmacy. You may take plain Mucinex, 1200 mg twice a day as needed for thick secretions. You may take a cough syrup such as Delsym as needed for cough. Motrin as needed for fever and body aches. Throat lozenges/sprays as needed for sore throat. Warm salt water gargles for sore throat. Hot tea with lemon and honey also helps soothe a sore throat. Disposition: 01 DISCHARGE HOME Condition: Stable Aubree Pitt MD May 17, 2017 11:18
[2017-05-17 11:30] LABS: AUTOMATED NEUTROPHIL # 4.4 TH/MM3 (1.8-7.7); BASOPHIL % 0.7 % (0.0-2.0); EOSINOPHIL # 0.1 TH/MM3 (0-0.4); EOSINOPHIL % 1.4 % (0.0-4.0); HEMATOCRIT 32.3 % (35.0-46.0); HEMO FLAGS DIFF FINAL; LYMPH % 15.3 % (9.0-44.0); LYMPHOCYTE # 0.9 TH/MM3 (1.0-4.8); MEAN CELL VOLUME 88.1 FL (80.0-100.0); MEAN CORPUSCULAR HEMOGLOBIN 29.3 PG (27.0-34.0); MEAN CORPUSCULAR HGB CONC 33.3 % (32.0-36.0); MONO % 6.4 % (0.0-8.0); NEUT % 76.2 % (16.0-70.0); PLATELET COUNT 195 TH/MM3 (150-450); RED BLOOD COUNT 3.66 MIL/MM3 (4.00-5.30); RED CELL DISTRIBUTION WIDTH 17.7 % (11.6-17.2); WHITE BLOOD COUNT 5.8 TH/MM3 (4.0-11.0)
[2017-05-17 11:38] LABS: ANION GAP 6 MEQ/L (5-15); BICARBONATE 25.8 MEQ/L (21.0-32.0); BLOOD UREA NITROGEN 13 MG/DL (7-18); CHLORIDE 105 MEQ/L (98-107); GLOMERULAR FILTRATION RATE 60 ML/MIN (>89); SODIUM (NA) 137 MEQ/L (136-145)
--- NOTE | 2017-05-17 11:46 | RADRPT ---
EXAM DATE/TIME: 05/17/2017 11:11 [facility] COMPARISON: CHEST SINGLE AP, January 18, 2016, 21:41. INDICATIONS : Chest pain. MEDICAL HISTORY : Renal calculi. Diverticulitis. Gastroesophageal reflux disease. Diabetes, SURGICAL HISTORY : Tubal ligation. Coronary artery stent ENCOUNTER: Initial ACUITY: 1 day PAIN SCORE: 2/10 LOCATION: Bilateral chest FINDINGS: A single view of the chest demonstrates the lungs to be symmetrically aerated without evidence of mas s, infiltrate or effusion. The cardiomediastinal contours are unremarkable. Osseous structures are intact. CONCLUSION: No acute disease. Sadiq Issa Jr., MD on May 17, 2017 at 11:42 Board Certified Radiologist. This report was verified electronically.
[2017-05-17 11:58] LABS: POTASSIUM 4.1 MEQ/L (3.5-5.1)
--- NOTE | 2017-05-17 17:55 | EKG ---
Date Performed: 05/17/2017 Time Performed: 10:36:12 PTAGE: 76 years EKG: SINUS BRADYCARDIA MODERATE VOLTAGE CRITERIA FOR LVH, CONSIDER NORMAL VARIANT BORDERLINE ECG Compared to prior tracing no significant change PREVIOUS TRACING : 08/15/2016 07.58 DOCTOR: Abelino Guerra Interpretating Date/Time 05/17/2017 17:53:52
== END 2017-05-17 12:58 | disposition home or self-care (01) ==
LOC: NEPE 10:13
DX: R07.9 Chest pain, unspecified (principal); R06.02 Shortness of breath; J06.9 Acute upper respiratory infection, unspecified; R00.1 Bradycardia, unspecified; M06.9 Rheumatoid arthritis, unspecified; E11.9 Type 2 diabetes mellitus without complications; I25.10 Atherosclerotic heart disease of native coronary artery without angina pectoris; I10 Essential (primary) hypertension; E78.5 Hyperlipidemia, unspecified
CPT/HCPCS: 71010; 80048; 84484; 85025; 87804; 93005

== ENCOUNTER 2017-05-30 20:14 | Emergency (ER) | payer MEDICARE, OTHER ==
[~2017-05-30] VITALS: Ht 162.6 cm; Wt 96.5 kg
[~2017-05-30 20:14] MED LIST changes: -HYDR-3580 PO
[2017-05-30 20:17] VITALS: BP 171/74; PULSE 75; RESP 16; TEMP 98.1; O2SAT 99
[2017-05-30 22:03] VITALS: BP 191/79; PULSE 63; RESP 16; O2SAT 98
[2017-05-30] MEDS ORDERED: SODIUM CHLORID 0.9% 500 ML INJ 500 ML IV ONE (22:15)
[2017-05-30 22:38] LABS: BACTERIA, URINE RARE /hpf; BLOOD, URINE SMALL (NEG); COMMENT (UR) CULTURE INDICATED; CULTURE IF INDICATED CULTURE INDICATED; GLUCOSE,URINE NEG (NEG); KETONE, URINE NEG (NEG); NITRITE,URINE NEG (NEG); PH, URINE 5.5 (5.0-8.5); SQUAMOUS EPITHELIAL CELL URINE 1 /hpf (0-5); URINE COLOR YELLOW (YELLW/STRAW)
[2017-05-30 22:51] LABS: AUTOMATED NEUTROPHIL # 5.4 TH/MM3 (1.8-7.7); BASOPHIL % 0.4 % (0.0-2.0); EOSINOPHIL # 0.1 TH/MM3 (0-0.4); EOSINOPHIL % 1.2 % (0.0-4.0); HEMATOCRIT 31.6 % (35.0-46.0); HEMO FLAGS DIFF FINAL; LYMPH % 20.7 % (9.0-44.0); LYMPHOCYTE # 1.6 TH/MM3 (1.0-4.8); MEAN CELL VOLUME 88.4 FL (80.0-100.0); MEAN CORPUSCULAR HEMOGLOBIN 28.6 PG (27.0-34.0); MEAN CORPUSCULAR HGB CONC 32.3 % (32.0-36.0); MONO % 7.6 % (0.0-8.0); NEUT % 70.1 % (16.0-70.0); PLATELET COUNT 183 TH/MM3 (150-450); RED BLOOD COUNT 3.57 MIL/MM3 (4.00-5.30); RED CELL DISTRIBUTION WIDTH 17.5 % (11.6-17.2); WHITE BLOOD COUNT 7.7 TH/MM3 (4.0-11.0)
[2017-05-30 22:56] LABS: BICARBONATE 24.8 MEQ/L (21.0-32.0); POTASSIUM 3.7 MEQ/L (3.5-5.1)
[2017-05-30] MEDS ORDERED: cefTRIAXone INJ 1,000 MG in SODIUM CHLORIDE 0.9% INJ 100 ML IV ONE (23:15)
[2017-05-30] MEDS ORDERED: MACR100C2 PO (23:22)
--- NOTE | 2017-05-30 23:22 | PD ---
HPI Chief Complaint: Complaint Time Seen by Provider: 21:41 Travel History International Travel<30 days: No Contact w/Intl Traveler<30days: No Traveled to known affect area: No History of Present Illness HPI Patient is a 76 year old female who comes in complaining of pain with urination and to her lower back. She says that this has been going on for the past week, and slowly getting worse. She says she has increased frequency and urgency. She says that today it seems like she is unable to urinate. She does report urinating small amounts twice today and constantly feeling the urge to go. She denies fever or chills. She denies nausea or vomiting. PFSH Past Medical History Hx Anticoagulant Therapy: Yes (Plavix, Aspirin) Anemia: Yes Arthritis: Yes (RHEUMATOID AND OSTEO) Asthma: Yes Blood Disorders: No Anxiety: Yes Depression: No Heart Rhythm Problems: Yes Cancer: No Cardiac Catheterization: Yes (IN 2004) Cardiovascular Problems: Yes (Stent x2, arterial sclerosis, mitral valve prolapse) Chemotherapy: No Chest Pain: Yes Cerebrovascular Accident: No Coronary Artery Disease: Yes Diabetes: Yes Patient Takes Glucophage: No Diminished Hearing: No Diverticulitis: Yes Endocrine: Yes Fibromyalgia: Yes Gastrointestinal Disorders: Yes (GERD, OCCASIONAL N/V, ESOPHAGEAL STRICTURE/ DILATION) GERD: Yes Glaucoma: Yes Genitourinary: Yes (recent bladder infection) Headaches: Yes Hepatitis: No Hiatal Hernia: Yes Hypertension: Yes Immune Disorder: Yes Inguinal Hernia: Yes Implanted Vascular Access Dvce: Yes Kidney Stones: Yes Medical other: No Musculoskeletal: Yes (BACK/NECK PROBLEMS, RHEUMATOID & OSTEOARTHRITIS) Psychiatric: Yes (CLAUSTROPHOBIC) Reproductive: Yes (ENLARGED UTERUS) Respiratory: Yes (asthma) Immunizations Current: Yes Pneumonia: Yes Radiation Therapy: No Sickle Cell Disease: No Sleep Apnea: Yes (NO CPAP USE) Thyroid Disease: Yes (HX OF, NOT ON MEDICATION CURRENTLY) PNEUMOCCOCAL Vaccine (Year): 2009 ?: Not Menopausal: Yes : 3 Para: 2 Miscarriage: 1 Dilation and Curettage (D&C): Yes Tubal Ligation: Yes Past Surgical History Abdominal Surgery: Yes (RT INGUINAL HERNIA) AICD: No Arteriovenous Shunt: No Body Medical Devices: Stents X2, hernia mesh Cardiac Surgery: Yes (CARDIAC STENTS X 2) Section: Yes Coronary Stent: Yes (X 2) Ear Surgery: No Endocrine Surgery: No Eye Surgery: Yes (GLAUCOMA SURGERY R EYE, BILATERAL CATARACT REMOVED) Genitourinary Surgery: No Gynecologic Surgery: Yes (D & C X 3, TUBAL LIGATION) Insulin Pump: No Joint Replacement: No Neurologic Surgery: No Oral Surgery: No Pacemaker: No Thoracic Surgery: No Other Surgery: Yes Social History Alcohol Use: No Tobacco Use: No (QUIT IN 1979) Substance Use: No Allergies-Medications (Allergen,Severity, Reaction): Coded Allergies: benzalkonium chloride (Unverified Allergy, Intermediate, Redness, 05/17/17) brimonidine (Unverified Allergy, Intermediate, Redness, 05/17/17) travoprost (Unverified Allergy, Intermediate, Redness, 05/17/17) ciprofloxacin (Unverified Allergy, Mild, itching and swelling, 05/17/17) sulfamethoxazole (Unverified Allergy, Unknown, 05/17/17) trimethoprim (Unverified Allergy, Unknown, 05/17/17) levofloxacin (Unverified Adverse Reaction, Severe, WEAKNESS, 05/17/17) Reported Meds & Prescriptions Reported Meds & Active Scripts Active Reported Clopidogrel (Clopidogrel Bisulfate) 75 Mg Tab 75 Mg PO DAILY Hydrocodone-Acetaminophen 5-325 mg Tab 1 Tab PO Q4H PRN Timolol Opth Drops 0.5 % Soln 1 Drop EACH EYE BID Amlodipine (Amlodipine Besylate) 10 Mg Tab 10 Mg PO DAILY Aspirin Low Dose (Aspirin) 81 Mg Chew 162 Mg CHEW DAILY Refresh Opth Drops (Polyvinyl Alcohol-Povidone Opth Drops) 1.4-0.6% Drops 1-2 Drop EACH EYE PRN PRN Dorzolamide Opth Drops (Dorzolamide HCl) 2% Soln 1 Drop EACH EYE TID Metoprolol Succinate ER 24 HR (Metoprolol Succinate) 50 Mg Tab 50 Mg PO DAILY Losartan (Losartan Potassium) 25 Mg Tab 25 Mg PO DAILY Novolin 70-30 Inj (Insulin Human Isoph/Insulin Regular) 1,000 Unit/10 Ml Vial 1 Units SQ SLIDING SCALE Review of Systems Except as stated in HPI: all other systems reviewed are Neg General / Constitutional: No: Fever, Chills HENT: No: Headaches, Lightheadedness Cardiovascular: No: Chest Pain or Discomfort Respiratory: No: Shortness of Breath Gastrointestinal: No: Nausea, Vomiting, Abdominal Pain Genitourinary: Positive: Urgency, Frequency, Dysuria Skin: No Rash, No Itching Neurologic: No: Weakness, Dizziness Physical Exam Narrative GENERAL: Awake and alert, in no acute distress. SKIN: Focused skin assessment warm/dry. HEAD: Atraumatic. Normocephalic. EYES: Pupils equal and round. No scleral icterus. No injection or drainage. ENT: Mucous membranes pink and moist. NECK: Trachea midline. No JVD. CARDIOVASCULAR: Regular rate and rhythm. No murmur appreciated. RESPIRATORY: No accessory muscle use. Clear to auscultation. Breath sounds equal bilaterally. GASTROINTESTINAL: Abdomen soft, nondistended. Mild suprapubic tenderness, no rebound or guarding. MUSCULOSKELETAL: No obvious deformities. No clubbing. No cyanosis. No edema. NEUROLOGICAL: Awake and alert. No obvious cranial nerve deficits. Motor grossly within normal limits. Normal speech. PSYCHIATRIC: Appropriate mood and affect; insight and judgment normal. Data Data Last Documented VS Vital Signs Date Time Temp Pulse Resp B/P (MAP) Pulse Ox O2 Delivery O2 Flow Rate FiO2 05/30/17 22:03 63 16 191/79 (116) 98 Room Air 05/30/17 20:17 98.1 Orders Orders Urinalysis - C+S If Indicated (05/30/17 21:33) Complete Blood Count With Diff (05/30/17 22:09) Basic Metabolic Panel (Bmp) (05/30/17 22:09) Iv Access Insert/Monitor (05/30/17 22:09) Sodium Chlorid 0.9% 500 Ml Inj (Ns 500 M (05/30/17 22:15) Urine Culture (05/30/17 22:22) Ceftriaxone Inj (Rocephin Inj) (05/30/17 23:15) Labs Laboratory Tests Test 05/30/17 22:22 White Blood Count 7.7 TH/MM3 Red Blood Count 3.57 MIL/MM3 Hemoglobin 10.2 GM/DL Hematocrit 31.6 % Mean Corpuscular Volume 88.4 FL Mean Corpuscular Hemoglobin 28.6 PG Mean Corpuscular Hemoglobin Concent 32.3 % Red Cell Distribution Width 17.5 % Platelet Count 183 TH/MM3 Mean Platelet Volume 9.5 FL Neutrophils (%) (Auto) 70.1 % Lymphocytes (%) (Auto) 20.7 % Monocytes (%) (Auto) 7.6 % Eosinophils (%) (Auto) 1.2 % Basophils (%) (Auto) 0.4 % Neutrophils # (Auto) 5.4 TH/MM3 Lymphocytes # (Auto) 1.6 TH/MM3 Monocytes # (Auto) 0.6 TH/MM3 Eosinophils # (Auto) 0.1 TH/MM3 Basophils # (Auto) 0.0 TH/MM3 CBC Comment DIFF FINAL Differential Comment Urine Color YELLOW Urine Turbidity HAZY Urine pH 5.5 Urine Specific [place] 1.018 Urine Protein TRACE mg/dL Urine Glucose (UA) NEG mg/dL Urine Ketones NEG mg/dL Urine Occult Blood SMALL Urine Nitrite NEG Urine Bilirubin NEG Urine Urobilinogen LESS THAN 2.0 MG/DL Urine Leukocyte Esterase LARGE Urine RBC 5 /hpf Urine WBC /hpf Urine Squamous Epithelial Cells 1 /hpf Urine Amorphous Sediment RARE Urine Bacteria RARE /hpf Microscopic Urinalysis Comment CULTURE INDICATED Blood Urea Nitrogen 18 MG/DL Creatinine 1.16 MG/DL Random Glucose 87 MG/DL Calcium Level 9.3 MG/DL Sodium Level 138 MEQ/L Potassium Level 3.7 MEQ/L Chloride Level 107 MEQ/L Carbon Dioxide Level 24.8 MEQ/L Anion Gap 6 MEQ/L Estimat Glomerular Filtration Rate 55 ML/MIN [facility] Medical Decision Making Medical Screen Exam Complete: Yes Emergency Medical Condition: Yes Medical Record Reviewed: Yes Differential Diagnosis UTI vs pyelonephritis vs dehydration Narrative Course Patient is a 76-year-old female who comes in complaining of urinary frequency, urgency, dysuria. Exam shows mild suprapubic tenderness. IV established, labs sent. Labs show a creatinine within normal limits. Urinalysis is positive for UTI. Patient given a dose of Rocephin. Given small bolus of IV fluids. She'll be discharged with a prescription for Macrobid. She is advised to follow -up with her doctor. Advised to return to the ED as needed for any worsening symptoms. Diagnosis Primary Impression: UTI (urinary tract infection) Qualified Codes: N30.00 - Acute cystitis without hematuria Patient Instructions: General Instructions, Urinary Tract Infection in Women ( ED) Additional Instructions: Take all of your antibiotic. Drink plenty of fluids. Follow-up with her doctor. Return to the ED as needed for any worsening symptoms. Scripts Nitrofurantoin Monohydrate Macrocrystals (Macrobid) 100 Mg Capsule 100 MG PO BID for Infection for 7 Days, #14 CAP 0 Refills Prov: Elodia Bolden MD 05/30/17 Disposition: 01 DISCHARGE HOME Condition: Stable Elodia Bolden MD May 30, 2017 23:22
== END 2017-05-31 00:33 | disposition home or self-care (01) ==
LOC: NEPC 20:14
DX: N30.00 Acute cystitis without hematuria (principal); B96.89 Other specified bacterial agents as the cause of diseases classified elsewhere; I10 Essential (primary) hypertension; E11.9 Type 2 diabetes mellitus without complications; Z79.4 Long term (current) use of insulin; Z87.891 Personal history of nicotine dependence
CPT/HCPCS: 80048; 81001; 85025; 87086; 96374; 99284; J0696; J7040

== ENCOUNTER 2017-06-26 20:03 | Emergency (ER) | payer MEDICARE, OTHER ==
[~2017-06-26] VITALS: Ht 162.6 cm; Wt 99.6 kg
[~2017-06-26 20:03] MED LIST changes: +MACR100C2 PO
[2017-06-26 20:28] VITALS: BP 176/77; PULSE 62; RESP 16; TEMP 97.9; O2SAT 97
--- NOTE | 2017-06-26 20:50 | PD ---
HPI . Nosebleed Chief Complaint: Nosebleed Time Seen by Provider: 20:41 Travel History International Travel<30 days: No Contact w/Intl Traveler<30days: No History of Present Illness HPI This patient presents with a chief complaint of a nosebleed. She states it started about an hour ago and was controlled by Afrin and a nasal tampon which she made herself. She states that she comes in for because she has had increased bruising for the last couple days and has also had some bleeding from her gums. She states that she takes Plavix but no other antiplatelet or anticoagulant medications. PFSH Past Medical History Hx Anticoagulant Therapy: Yes (Plavix, Aspirin) Anemia: Yes Arthritis: Yes (RHEUMATOID AND OSTEO) Asthma: Yes Blood Disorders: No Anxiety: Yes Depression: No Heart Rhythm Problems: Yes Cancer: No Cardiac Catheterization: Yes (IN 2004) Cardiovascular Problems: Yes (Stent x2, arterial sclerosis, mitral valve prolapse) Chemotherapy: No Chest Pain: Yes Cerebrovascular Accident: No Coronary Artery Disease: Yes Diabetes: Yes Diminished Hearing: No Diverticulitis: Yes Endocrine: Yes Fibromyalgia: Yes Gastrointestinal Disorders: Yes (GERD, OCCASIONAL N/V, ESOPHAGEAL STRICTURE/ DILATION) GERD: Yes Glaucoma: Yes Genitourinary: Yes (recent bladder infection) Headaches: Yes Hepatitis: No Hiatal Hernia: Yes Hypertension: Yes Immune Disorder: Yes Inguinal Hernia: Yes Implanted Vascular Access Dvce: Yes Kidney Stones: Yes Musculoskeletal: Yes (BACK/NECK PROBLEMS, RHEUMATOID & OSTEOARTHRITIS) Psychiatric: Yes (CLAUSTROPHOBIC) Reproductive: Yes (ENLARGED UTERUS) Respiratory: Yes (asthma) Immunizations Current: Yes Pneumonia: Yes Radiation Therapy: No Sickle Cell Disease: No Sleep Apnea: Yes (NO CPAP USE) Thyroid Disease: Yes (HX OF, NOT ON MEDICATION CURRENTLY) PNEUMOCCOCAL Vaccine (Year): 2009 Menopausal: Yes : 3 Para: 2 Miscarriage: 1 Dilation and Curettage (D&C): Yes Tubal Ligation: Yes Past Surgical History Abdominal Surgery: Yes (RT INGUINAL HERNIA) AICD: No Arteriovenous Shunt: No Body Medical Devices: Stents X2, hernia mesh Cardiac Surgery: Yes (CARDIAC STENTS X 2) Section: Yes Coronary Stent: Yes (X 2) Ear Surgery: No Endocrine Surgery: No Eye Surgery: Yes (GLAUCOMA SURGERY R EYE, BILATERAL CATARACT REMOVED) Genitourinary Surgery: No Gynecologic Surgery: Yes (D & C X 3, TUBAL LIGATION) Insulin Pump: No Joint Replacement: No Neurologic Surgery: No Oral Surgery: No Pacemaker: No Thoracic Surgery: No Other Surgery: Yes Social History Alcohol Use: No Tobacco Use: No (QUIT IN 1979) Substance Use: No Allergies-Medications (Allergen,Severity, Reaction): Coded Allergies: benzalkonium chloride (Unverified Allergy, Intermediate, Redness, 06/26/17 ) brimonidine (Unverified Allergy, Intermediate, Redness, 06/26/17) travoprost (Unverified Allergy, Intermediate, Redness, 06/26/17) ciprofloxacin (Unverified Allergy, Mild, itching and swelling, 06/26/17) sulfamethoxazole (Unverified Allergy, Unknown, 06/26/17) trimethoprim (Unverified Allergy, Unknown, 06/26/17) levofloxacin (Unverified Adverse Reaction, Severe, WEAKNESS, 06/26/17) Reported Meds & Prescriptions Reported Meds & Active Scripts Active Macrobid (Nitrofurantoin Monohydrate Macrocrystals) 100 Mg Capsule 100 Mg PO BID 7 Days Reported Clopidogrel (Clopidogrel Bisulfate) 75 Mg Tab 75 Mg PO DAILY Hydrocodone-Acetaminophen 5-325 mg Tab 1 Tab PO Q4H PRN Timolol Opth Drops 0.5 % Soln 1 Drop EACH EYE BID Amlodipine (Amlodipine Besylate) 10 Mg Tab 10 Mg PO DAILY Aspirin Low Dose (Aspirin) 81 Mg Chew 162 Mg CHEW DAILY Refresh Opth Drops (Polyvinyl Alcohol-Povidone Opth Drops) 1.4-0.6% Drops 1-2 Drop EACH EYE PRN PRN Dorzolamide Opth Drops (Dorzolamide HCl) 2% Soln 1 Drop EACH EYE TID Metoprolol Succinate ER 24 HR (Metoprolol Succinate) 50 Mg Tab 50 Mg PO DAILY Losartan (Losartan Potassium) 25 Mg Tab 25 Mg PO DAILY Novolin 70-30 Inj (Insulin Human Isoph/Insulin Regular) 1,000 Unit/10 Ml Vial 1 Units SQ SLIDING SCALE Review of Systems Except as stated in HPI: all other systems reviewed are Neg HENT: Positive: Nosebleed, Gingival Bleeding Hematologic/Lymphatic: Positive: Easy Bruising Physical Exam Narrative GENERAL: Patient is awake and alert and in no acute distress. SKIN: She does have some scattered bruising including a large bruise on her right medial thigh. HEAD: Normocephalic/atraumatic. EYES: Pupils equal. Extraocular movements are intact. ENT: Kiesselbach's plexus on the right is hyperemic but no active bleeding. NECK: Supple. CARDIOVASCULAR: Regular rate and rhythm. RESPIRATORY: Nonlabored. MUSCULOSKELETAL: Atraumatic. NEUROLOGICAL: Nonfocal. PSYCHIATRIC: Appropriate mood and affect. Data Data Last Documented VS Vital Signs Date Time Temp Pulse Resp B/P (MAP) Pulse Ox O2 Delivery O2 Flow Rate FiO2 06/26/17 20:51 (110) 06/26/17 20:28 97.9 62 16 97 Orders Orders Complete Blood Count With Diff (06/26/17 20:44) Prothrombin Time / Inr (Pt) (06/26/17 20:44) Act Partial Throm Time (Ptt) (06/26/17 20:44) Labs Laboratory Tests Test 06/26/17 20:55 White Blood Count 6.2 TH/MM3 Red Blood Count 3.41 MIL/MM3 Hemoglobin 9.7 GM/DL Hematocrit 29.6 % Mean Corpuscular Volume 86.8 FL Mean Corpuscular Hemoglobin 28.5 PG Mean Corpuscular Hemoglobin Concent 32.9 % Red Cell Distribution Width 17.0 % Platelet Count 220 TH/MM3 Mean Platelet Volume 9.8 FL Neutrophils (%) (Auto) 63.2 % Lymphocytes (%) (Auto) 28.0 % Monocytes (%) (Auto) 7.2 % Eosinophils (%) (Auto) 1.1 % Basophils (%) (Auto) 0.5 % Neutrophils # (Auto) 4.0 TH/MM3 Lymphocytes # (Auto) 1.7 TH/MM3 Monocytes # (Auto) 0.4 TH/MM3 Eosinophils # (Auto) 0.1 TH/MM3 Basophils # (Auto) 0.0 TH/MM3 CBC Comment DIFF FINAL Differential Comment Prothrombin Time 11.2 SEC Prothromb Time International Ratio 1.0 RATIO Activated Partial Thromboplast Time 29.6 SEC [facility] Medical Decision Making Medical Screen Exam Complete: Yes Emergency Medical Condition: Yes Differential Diagnosis Differential diagnosis includes but is not limited to epistaxis due to an upper respiratory infection, coagulopathy, local trauma, nasal fracture Narrative Course This patient presents with the chief complaint of epistaxis. She also complains of easy bruising and bleeding gums. For these reasons, I have ordered a CBC, PT and PTT. CBC Diagram 06/26/17 20:55 INR is 1.0. PTT is 29.6. Diagnosis Primary Impression: Epistaxis Patient Instructions: Epistaxis (DC), General Instructions Disposition: 01 DISCHARGE HOME Condition: Stable Aubree Pitt MD Jun 26, 2017 20:50
[2017-06-26 21:10] LABS: BASOPHIL % 0.5 % (0.0-2.0); EOSINOPHIL # 0.1 TH/MM3 (0-0.4); EOSINOPHIL % 1.1 % (0.0-4.0); HEMATOCRIT 29.6 % (35.0-46.0); HEMO FLAGS DIFF FINAL; LYMPHOCYTE # 1.7 TH/MM3 (1.0-4.8); MEAN CELL VOLUME 86.8 FL (80.0-100.0); MEAN CORPUSCULAR HEMOGLOBIN 28.5 PG (27.0-34.0); MEAN CORPUSCULAR HGB CONC 32.9 % (32.0-36.0); MONO % 7.2 % (0.0-8.0); NEUT % 63.2 % (16.0-70.0); PLATELET COUNT 220 TH/MM3 (150-450); RED BLOOD COUNT 3.41 MIL/MM3 (4.00-5.30); WHITE BLOOD COUNT 6.2 TH/MM3 (4.0-11.0)
[2017-06-26 21:26] LABS: APTT (PATIENT) 29.6 SEC (24.3-30.1); PROTHROMBIN TIME - PATIENT 11.2 SEC (9.8-11.6)
[2017-06-26] MEDS ORDERED: COMB0.2S EACH EYE (21:29)
[2017-06-26] MEDS ORDERED: VALS80TA2 PO (21:29)
== END 2017-06-26 21:52 | disposition home or self-care (01) ==
LOC: PHED 20:03 → PHEFT 21:52
DX: R04.0 Epistaxis (principal); J45.909 Unspecified asthma, uncomplicated; Z79.01 Long term (current) use of anticoagulants; F41.9 Anxiety disorder, unspecified; I25.10 Atherosclerotic heart disease of native coronary artery without angina pectoris; E11.9 Type 2 diabetes mellitus without complications; K21.9 Gastro-esophageal reflux disease without esophagitis; I10 Essential (primary) hypertension; Z79.4 Long term (current) use of insulin; Z79.82 Long term (current) use of aspirin; Z79.899 Other long term (current) drug therapy
CPT/HCPCS: 85025; 85610; 85730; 99283

== ENCOUNTER → 2017-07-10 | Outpatient (CLI) | payer MEDICARE, OTHER ==
[~2017-07-10] MED LIST changes: -AMLO10TA2 PO; -ASPI81CH37 CHEW; +COMB0.2S EACH EYE; -HYDR-3516 PO; -LOSA25TA PO; -MACR100C2 PO; -NOVO7030P2 SQ; -REFRDRO EACH EYE; -TIMO0.5S30 EACH EYE; +VALS80TA2 PO
[2017-07-10 09:17] LABS: AUTOMATED NEUTROPHIL # 3.9 TH/MM3 (1.8-7.7); BASOPHIL % 0.4 % (0.0-2.0); EOSINOPHIL # 0.1 TH/MM3 (0-0.4); EOSINOPHIL % 1.3 % (0.0-4.0); HEMATOCRIT 31.5 % (35.0-46.0); HEMO FLAGS DIFF FINAL; LYMPH % 24.5 % (9.0-44.0); LYMPHOCYTE # 1.5 TH/MM3 (1.0-4.8); MEAN CELL VOLUME 89.9 FL (80.0-100.0); MEAN CORPUSCULAR HEMOGLOBIN 29.3 PG (27.0-34.0); MEAN CORPUSCULAR HGB CONC 32.6 % (32.0-36.0); MONO % 7.4 % (0.0-8.0); NEUT % 66.4 % (16.0-70.0); PLATELET COUNT 176 TH/MM3 (150-450); RED CELL DISTRIBUTION WIDTH 17.1 % (11.6-17.2); WHITE BLOOD COUNT 5.9 TH/MM3 (4.0-11.0)
[2017-07-10 09:39] LABS: WESTERGREN SEDIMENTATION RATE 93 mm/hr (0-30)
[2017-07-10 09:49] LABS: RHEUMATOID FACTOR TRIGGER LESS THAN 10.0 IU/ML (0.0-14.9)
[2017-07-10 10:42] LABS: ALKALINE PHOSPHATASE 131 U/L (45-117); ALT (GPT) 15 U/L (10-53); ANION GAP 8 MEQ/L (5-15); AST (GOT) 9 U/L (15-37); BICARBONATE 24.5 MEQ/L (21.0-32.0); BLOOD UREA NITROGEN 24 MG/DL (7-18); CHLORIDE 106 MEQ/L (98-107); GLOMERULAR FILTRATION RATE 54 ML/MIN (>89); GLUCOSE,FASTING 137 MG/DL (74-99); SODIUM (NA) 138 MEQ/L (136-145); TOTAL BILIRUBIN ADULT 0.4 MG/DL (0.2-1.0)
== END ==
LOC: CLAB 08:39
PROVIDERS: ATTEND Allergy & Immunology
DX: M06.4 Inflammatory polyarthropathy (principal); R70.0 Elevated erythrocyte sedimentation rate; R79.82 Elevated C-reactive protein (CRP)
CPT/HCPCS: 36415; 80053; 85025; 85652; 86140; 86200; 86430

== ENCOUNTER → 2017-09-14 | Outpatient (CLI) | payer MEDICARE, OTHER ==
[~2017-09-14] MED LIST changes: +METO1TAB9 PO; -METO50TA11 PO
[2017-09-14 11:51] LABS: AUTOMATED NEUTROPHIL # 3.2 TH/MM3 (1.8-7.7); BASOPHIL % 0.7 % (0.0-2.0); EOSINOPHIL # 0.1 TH/MM3 (0-0.4); EOSINOPHIL % 1.2 % (0.0-4.0); HEMATOCRIT 31.3 % (35.0-46.0); HEMOGLOBIN 10.2 GM/DL (11.6-15.3); LYMPH % 27.3 % (9.0-44.0); LYMPHOCYTE # 1.4 TH/MM3 (1.0-4.8); MEAN CELL VOLUME 91.8 FL (80.0-100.0); MEAN CORPUSCULAR HEMOGLOBIN 29.9 PG (27.0-34.0); MEAN CORPUSCULAR HGB CONC 32.6 % (32.0-36.0); MEAN PLATELET VOLUME 9.7 FL (7.0-11.0); MONO % 8.9 % (0.0-8.0); MONOCYTE # 0.5 TH/MM3 (0-0.9); NEUT % 61.9 % (16.0-70.0); PLATELET COUNT 162 TH/MM3 (150-450); RED CELL DISTRIBUTION WIDTH 15.3 % (11.6-17.2); WHITE BLOOD COUNT 5.2 TH/MM3 (4.0-11.0)
[2017-09-14 12:19] LABS: ALBUMIN 3.3 GM/DL (3.4-5.0); ALT (GPT) 13 U/L (10-53); AST (GOT) 8 U/L (15-37); BICARBONATE 26.8 MEQ/L (21.0-32.0); BLOOD UREA NITROGEN 23 MG/DL (7-18); CALCIUM 9.1 MG/DL (8.5-10.1); CHLORIDE 104 MEQ/L (98-107); CREATININE 1.07 MG/DL (0.50-1.00); GLOMERULAR FILTRATION RATE 60 ML/MIN (>89); GLUCOSE,FASTING 154 MG/DL (74-99); SODIUM (NA) 138 MEQ/L (136-145)
[2017-09-14 12:22] LABS: ALKALINE PHOSPHATASE 125 U/L (45-117); TOTAL BILIRUBIN ADULT 0.3 MG/DL (0.2-1.0); TOTAL PROTEIN 8.3 GM/DL (6.4-8.2)
[2017-09-14 12:25] LABS: WESTERGREN SEDIMENTATION RATE 105 mm/hr (0-30)
== END ==
LOC: CLAB 11:28
PROVIDERS: ATTEND Allergy & Immunology
DX: M06.4 Inflammatory polyarthropathy (principal)
CPT/HCPCS: 36415; 80053; 85025; 85652; 86140

== ENCOUNTER 2017-09-22 13:04 | Emergency (ER) | payer MEDICARE, OTHER ==
[~2017-09-22] VITALS: Ht 165.1 cm; Wt 95.0 kg
[2017-09-22 13:13] VITALS: BP 212/88; PULSE 63; RESP 16; TEMP 97.6; O2SAT 95
[2017-09-22] MEDS ORDERED: NOVO7030P2 SQ ×2 (14:24)
--- NOTE | 2017-09-22 14:46 | PD ---
HPI Chief Complaint: Cold / Flu Symptoms Time Seen by Provider: 14:42 Travel History International Travel<30 days: No Contact w/Intl Traveler<30days: No Traveled to known affect area: No History of Present Illness HPI pleasant female presents with complaints of mild headache photophobia sinus pain and pressure with postnasal drip and cough. Subjective fever. Denies any nausea vomiting or diarrhea. Denies any chest pain shortness of breath urinary or bowel symptoms. Denies any new rashes. She did receive a flu shot. Unable to assess myalgias secondary to history of fibromyalgia and arthritis. No sick contacts. PFSH Past Medical History Hx Anticoagulant Therapy: Yes (Plavix, Aspirin) Anemia: Yes Arthritis: Yes (RHEUMATOID AND OSTEO) Asthma: Yes Blood Disorders: No Anxiety: Yes Depression: No Heart Rhythm Problems: Yes Cancer: No Cardiac Catheterization: Yes (IN 2004) Cardiovascular Problems: Yes (Stent x2, arterial sclerosis, mitral valve prolapse) Chemotherapy: No Chest Pain: Yes Cerebrovascular Accident: No Coronary Artery Disease: Yes Diabetes: Yes Patient Takes Glucophage: No Diminished Hearing: No Diverticulitis: Yes Endocrine: Yes Fibromyalgia: Yes Gastrointestinal Disorders: Yes (GERD, OCCASIONAL N/V, ESOPHAGEAL STRICTURE/ DILATION) GERD: Yes Glaucoma: Yes Genitourinary: Yes (recent bladder infection) Headaches: Yes Hepatitis: No Hiatal Hernia: Yes Hypertension: Yes Immune Disorder: Yes Inguinal Hernia: Yes Implanted Vascular Access Dvce: Yes Kidney Stones: Yes Medical other: No Musculoskeletal: Yes (BACK/NECK PROBLEMS, RHEUMATOID & OSTEOARTHRITIS) Psychiatric: Yes (CLAUSTROPHOBIC) Reproductive: Yes (ENLARGED UTERUS) Respiratory: Yes (asthma) Immunizations Current: Yes Pneumonia: Yes Radiation Therapy: No Sickle Cell Disease: No Sleep Apnea: Yes (NO CPAP USE) Thyroid Disease: Yes (HX OF, NOT ON MEDICATION CURRENTLY) PNEUMOCCOCAL Vaccine (Year): 2009 Menopausal: Yes : 3 Para: 2 Miscarriage: 1 Dilation and Curettage (D&C): Yes Tubal Ligation: Yes Past Surgical History Abdominal Surgery: Yes (RT INGUINAL HERNIA) AICD: No Arteriovenous Shunt: No Body Medical Devices: Stents X2, hernia mesh Cardiac Surgery: Yes (CARDIAC STENTS X 2) Section: Yes Coronary Stent: Yes (X 2) Ear Surgery: No Endocrine Surgery: No Eye Surgery: Yes (GLAUCOMA SURGERY R EYE, BILATERAL CATARACT REMOVED) Genitourinary Surgery: No Gynecologic Surgery: Yes (D & C X 3, TUBAL LIGATION) Insulin Pump: No Joint Replacement: No Neurologic Surgery: No Oral Surgery: No Pacemaker: No Thoracic Surgery: No Other Surgery: Yes Social History Alcohol Use: No Tobacco Use: No (QUIT IN 1979) Substance Use: No Allergies-Medications (Allergen,Severity, Reaction): Coded Allergies: benzalkonium chloride (Verified Allergy, Intermediate, Redness, 09/22/17) brimonidine (Verified Allergy, Intermediate, Redness, 09/22/17) travoprost (Verified Allergy, Intermediate, Redness, 09/22/17) ciprofloxacin (Verified Allergy, Mild, itching and swelling, 09/22/17) sulfamethoxazole (Verified Allergy, Unknown, 09/22/17) trimethoprim (Verified Allergy, Unknown, 09/22/17) levofloxacin (Verified Adverse Reaction, Severe, WEAKNESS, 09/22/17) Reported Meds & Prescriptions Reported Meds & Active Scripts Active Combigan Opth Drops (Brimonidine-Timolol Opth Drops) 0.2-0.5% Soln 1 Drop EACH EYE BID Reported Novolin 70-30 Inj (Insulin Human Isoph/Insulin Regular) 1,000 Unit/10 Ml Vial 10 Units SQ HS PRN Novolin 70-30 Inj (Insulin Human Isoph/Insulin Regular) 1,000 Unit/10 Ml Vial 14 Units SQ DAILYAC Valsartan-Hydrochlorothiazide 80-12.5 Mg Tab 1 Tab PO DAILY Clopidogrel (Clopidogrel Bisulfate) 75 Mg Tab 75 Mg PO DAILY Dorzolamide Opth Drops (Dorzolamide HCl) 2% Soln 1 Drop EACH EYE TID Metoprolol Succinate ER 24 HR (Metoprolol Succinate) 50 Mg Tab 50 Mg PO DAILY Review of Systems General / Constitutional: Positive: Chills, No: Fever Eyes: No: Visual changes HENT: Positive: Headaches, Congestion, Other (sinus pain and pressure, postnasal drip) Cardiovascular: No: Chest Pain or Discomfort Respiratory: No: Shortness of Breath Gastrointestinal: No: Abdominal Pain Genitourinary: No: Dysuria Musculoskeletal: No: Pain Skin: No Rash Neurologic: No: Weakness Psychiatric: No: Depression Endocrine: No: Polydipsia Hematologic/Lymphatic: No: Easy Bruising Physical Exam Narrative GENERAL: Well-nourished, well-developed patient. SKIN: Focused skin assessment warm/dry. HEAD: Normocephalic. EYES: No scleral icterus. Mild erythema and drainage Nares erythematous and boggy Tenderness over bilateral maxillary sinuses Throat mildly erythematous no adenopathy no exudate postnasal drip noted. NECK: Supple, trachea midline. No JVD or lymphadenopathy. CARDIOVASCULAR: Regular rate and rhythm without murmurs, gallops, or rubs. RESPIRATORY: Breath sounds equal bilaterally. No accessory muscle use. GASTROINTESTINAL: Abdomen soft, non-tender, nondistended. MUSCULOSKELETAL: No cyanosis, or edema. BACK: Nontender without obvious deformity. No CVA tenderness. Data Data Last Documented VS Vital Signs Date Time Temp Pulse Resp B/P (MAP) Pulse Ox O2 Delivery O2 Flow Rate FiO2 09/22/17 14:54 64 18 182/94 (123) 95 Room Air 09/22/17 13:13 97.6 Orders Orders Influenzae A/B Antigen (09/22/17 14:42) [facility] Medical Decision Making Medical Screen Exam Complete: Yes Emergency Medical Condition: Yes Differential Diagnosis Sinusitis, influenza, viral upper respiratory tract infection, pharyngitis, allergies Narrative Course Assessment and plan discussed with patient and daughter at bedside. Influenza negative Diagnosis Primary Impression: Sinusitis Qualified Codes: J01.00 - Acute maxillary sinusitis, unspecified Patient Instructions: General Instructions Additional Instructions: Rest fluids and Motrin, antibiotic and cough suppressant as prescribed. Encourage nasal irrigation and saltwater gargles. Encouraged frequent handwashing, consider vitamin C and zinc to boost immune system, follow-up with PCP. Return to emergency medical need onset of new symptoms. Med/Other Pt SpecificInfo: Prescription(s) given Scripts Guaifenesin-Codeine Liq (Cheratussin AC Liq) 100-10 Mg/5 Ml Syrp 5 ML PO Q4H Y for COUGH AND COLD SYMPTOMS, #120 ML 0 Refills Do not exceed 6 doses/24 hrs. Prov: Dre Cheema MD 09/22/17 Azithromycin (Zithromax) 500 Mg Tab 500 MG PO DAILY for Infection for 7 Days, #7 TAB 0 Refills Prov: Dre Cheema MD 09/22/17 Disposition: 01 DISCHARGE HOME Condition: Good Dre Cheema MD Sep 22, 2017 14:46
[2017-09-22 14:54] VITALS: BP 182/94; PULSE 64; RESP 18; O2SAT 95
[2017-09-22 15:30] VITALS: BP 161/84; PULSE 62; RESP 18; O2SAT 96
[2017-09-22] MEDS ORDERED: ZITH500T PO (15:33)
[2017-09-22] MEDS ORDERED: CHERSYP2 PO (15:33)
== END 2017-09-22 15:54 | disposition home or self-care (01) ==
LOC: PHED 13:04
DX: J01.00 Acute maxillary sinusitis, unspecified (principal); J45.909 Unspecified asthma, uncomplicated; E11.9 Type 2 diabetes mellitus without complications; I10 Essential (primary) hypertension; I25.10 Atherosclerotic heart disease of native coronary artery without angina pectoris; F41.9 Anxiety disorder, unspecified; K21.9 Gastro-esophageal reflux disease without esophagitis; H40.9 Unspecified glaucoma; Z87.891 Personal history of nicotine dependence
CPT/HCPCS: 87804; 99284

== ENCOUNTER → 2017-12-28 | Outpatient (CLI) | payer MEDICARE, OTHER ==
[~2017-12-28] MED LIST changes: +CHERSYP2 PO; +NOVO7030P2 SQ; +ZITH500T PO
[2017-12-28 08:27] LABS: AUTOMATED NEUTROPHIL # 2.7 TH/MM3 (1.8-7.7); BASOPHIL % 0.4 % (0.0-2.0); EOSINOPHIL # 0.1 TH/MM3 (0-0.4); EOSINOPHIL % 1.2 % (0.0-4.0); HEMATOCRIT 31.1 % (35.0-46.0); HEMOGLOBIN 10.3 GM/DL (11.6-15.3); LYMPH % 33.9 % (9.0-44.0); LYMPHOCYTE # 1.6 TH/MM3 (1.0-4.8); MEAN CELL VOLUME 90.4 FL (80.0-100.0); MEAN CORPUSCULAR HEMOGLOBIN 29.9 PG (27.0-34.0); MEAN CORPUSCULAR HGB CONC 33.1 % (32.0-36.0); MEAN PLATELET VOLUME 9.6 FL (7.0-11.0); MONO % 7.9 % (0.0-8.0); MONOCYTE # 0.4 TH/MM3 (0-0.9); NEUT % 56.6 % (16.0-70.0); PLATELET COUNT 154 TH/MM3 (150-450); RED BLOOD COUNT 3.44 MIL/MM3 (4.00-5.30); RED CELL DISTRIBUTION WIDTH 15.4 % (11.6-17.2); WHITE BLOOD COUNT 4.8 TH/MM3 (4.0-11.0)
[2017-12-28 08:46] LABS: ALBUMIN 3.1 GM/DL (3.4-5.0); ALT (GPT) 14 U/L (10-53); AST (GOT) 14 U/L (15-37); BICARBONATE 24.7 MEQ/L (21.0-32.0); BLOOD UREA NITROGEN 31 MG/DL (7-18); CALCIUM 9.1 MG/DL (8.5-10.1); CHLORIDE 107 MEQ/L (98-107); CREATININE 1.22 MG/DL (0.50-1.00); GLOMERULAR FILTRATION RATE 51 ML/MIN (>89); GLUCOSE,FASTING 142 MG/DL (74-99); SODIUM (NA) 138 MEQ/L (136-145)
[2017-12-28 08:48] LABS: ALKALINE PHOSPHATASE 124 U/L (45-117); TOTAL BILIRUBIN ADULT 0.3 MG/DL (0.2-1.0); TOTAL PROTEIN 7.9 GM/DL (6.4-8.2)
[2017-12-28 08:56] LABS: WESTERGREN SEDIMENTATION RATE GREATER THAN 140 mm/hr (0-30)
== END ==
LOC: CLAB 07:27
DX: R53.83 Other fatigue (principal)
CPT/HCPCS: 36415; 80053; 84550; 85025; 85652; 86140

== ENCOUNTER 2018-02-04 06:34 | Inpatient (IN) | payer MEDICARE, OTHER ==
[2018-02-04] VITALS (13 sets, daily range): BP systolic 147–205; BP diastolic 66–111; PULSE 47–67; RESP 14–20; TEMP 97.3–98.7; O2SAT 95–100
[2018-02-04] MEDS ORDERED: VALSARTAN 80 MG TAB PO ONE (07:15)
[2018-02-04] MEDS ORDERED: SODIUM CHLORIDE 0.9% FLUSH 10 ML FLUSH IVF PRN (07:15)
[2018-02-04] MEDS ORDERED: HYDROCHLOROTHIAZIDE 12.5 MG CAP PO ONE (07:15)
[2018-02-04] MEDS ORDERED: METOPROLOL SUCCINATE 50 MG EXTENDED RELEASE TAB PO ONE (07:15)
--- NOTE | 2018-02-04 07:18 | PD ---
HPI Chief Complaint: Dizziness Time Seen by Provider: 07:03 Travel History International Travel<30 days: No Contact w/Intl Traveler<30days: No Traveled to known affect area: No History of Present Illness HPI This is a 77-year-old female who has a history of coronary artery presents to the emergency department with onset yesterday right-sided neck pain, constant, moderate severity, worse with movement associated with some diaphoresis, nausea and shortness of breath when she exerts herself. She has never had symptoms like this before. She denies any chest pain. She did not take her blood pressure medications this morning but was surprised at how high her blood pressure was. She has 2 stents and follows with Dr. Adhikari. [facility] Past Medical History Hx Anticoagulant Therapy: Yes Anemia: Yes Arthritis: Yes (RHEUMATOID AND OSTEO) Asthma: Yes Blood Disorders: No Anxiety: Yes Depression: No Heart Rhythm Problems: Yes Cancer: No Cardiac Catheterization: Yes (IN 2004) Cardiovascular Problems: Yes Chemotherapy: No Chest Pain: Yes Cerebrovascular Accident: No Coronary Artery Disease: Yes Diabetes: Yes Patient Takes Glucophage: No Diminished Hearing: No Diverticulitis: Yes Endocrine: Yes Fibromyalgia: Yes Gastrointestinal Disorders: Yes (GERD, OCCASIONAL N/V, ESOPHAGEAL STRICTURE/ DILATION) GERD: Yes Glaucoma: Yes Genitourinary: Yes (recent bladder infection) Headaches: Yes Hepatitis: No Hiatal Hernia: Yes Hypertension: Yes Immune Disorder: Yes Inguinal Hernia: Yes Implanted Vascular Access Dvce: Yes Kidney Stones: Yes Musculoskeletal: Yes (BACK/NECK PROBLEMS, RHEUMATOID & OSTEOARTHRITIS) Psychiatric: Yes (CLAUSTROPHOBIC) Reproductive: Yes (ENLARGED UTERUS) Respiratory: Yes (asthma) Immunizations Current: Yes Pneumonia: Yes Radiation Therapy: No Sickle Cell Disease: No Sleep Apnea: Yes (NO CPAP USE) Thyroid Disease: Yes (HX OF, NOT ON MEDICATION CURRENTLY) Influenza Vaccination: Yes PNEUMOCCOCAL Vaccine (Year): 2009 ?: Not Menopausal: Yes : 3 Para: 2 Miscarriage: 1 Dilation and Curettage (D&C): Yes Tubal Ligation: Yes Past Surgical History Abdominal Surgery: Yes (RT INGUINAL HERNIA) AICD: No Arteriovenous Shunt: No Body Medical Devices: Stents X2, hernia mesh Cardiac Surgery: Yes (CARDIAC STENTS X 2) Section: Yes Coronary Stent: Yes (X 2) Ear Surgery: No Endocrine Surgery: No Eye Surgery: Yes (GLAUCOMA SURGERY R EYE, BILATERAL CATARACT REMOVED) Genitourinary Surgery: No Gynecologic Surgery: Yes (D & C X 3, TUBAL LIGATION) Insulin Pump: No Joint Replacement: No Neurologic Surgery: No Oral Surgery: No Pacemaker: No Thoracic Surgery: No Other Surgery: Yes Social History Alcohol Use: No Tobacco Use: No (QUIT IN 1979) Substance Use: No Allergies-Medications (Allergen,Severity, Reaction): Coded Allergies: benzalkonium chloride (Verified Allergy, Intermediate, Redness, 02/04/18) brimonidine (Verified Allergy, Intermediate, Redness, 02/04/18) travoprost (Verified Allergy, Intermediate, Redness, 02/04/18) ciprofloxacin (Verified Allergy, Mild, itching and swelling, 02/04/18) sulfamethoxazole (Verified Allergy, Unknown, 02/04/18) trimethoprim (Verified Allergy, Unknown, 02/04/18) levofloxacin (Verified Adverse Reaction, Severe, WEAKNESS, 02/04/18) Reported Meds & Prescriptions Reported Meds & Active Scripts Active Combigan Opth Drops (Brimonidine-Timolol Opth Drops) 0.2-0.5% Soln 1 Drop EACH EYE BID Reported Novolin 70-30 Inj (Insulin Human Isoph/Insulin Regular) 1,000 Unit/10 Ml Vial 10 Units SQ HS PRN Novolin 70-30 Inj (Insulin Human Isoph/Insulin Regular) 1,000 Unit/10 Ml Vial 14 Units SQ DAILYAC Valsartan-Hydrochlorothiazide 80-12.5 Mg Tab 1 Tab PO DAILY Clopidogrel (Clopidogrel Bisulfate) 75 Mg Tab 75 Mg PO DAILY Dorzolamide Opth Drops (Dorzolamide HCl) 2% Soln 1 Drop EACH EYE TID Metoprolol Succinate ER 24 HR (Metoprolol Succinate) 50 Mg Tab 50 Mg PO DAILY Review of Systems Except as stated in HPI: all other systems reviewed are Neg Physical Exam Narrative GENERAL:Well appearing, no acute distress SKIN: Focused skin assessment warm and dry. HEAD: Atraumatic. Normocephalic. EYES: Pupils equal and round. No injection or drainage. ENT: Moist mucous membranes NECK: Trachea midline. CARDIOVASCULAR: Regular rate and rhythm. No murmur appreciated. Bilateral radial pulses are 2+ and equal RESPIRATORY: Clear to auscultation. Breath sounds equal bilaterally. GASTROINTESTINAL: Abdomen soft, non-tender, nondistended. MUSCULOSKELETAL: No obvious deformities. NEUROLOGICAL: Awake and alert. No obvious cranial nerve deficits. Moving all extremities. PSYCHIATRIC: Appropriate mood and affect; insight and judgment normal. Data Data Last Documented VS Vital Signs Date Time Temp Pulse Resp B/P (MAP) Pulse Ox O2 Delivery O2 Flow Rate FiO2 02/04/18 08:41 52 18 180/75 (110) 100 Room Air 02/04/18 06:38 97.7 Orders Orders Electrocardiogram (02/04/18 ) Electrocardiogram (02/04/18 07:14) Complete Blood Count With Diff (02/04/18 07:14) Comprehensive Metabolic Panel (02/04/18 07:14) Troponin I (02/04/18 07:14) Ecg Monitoring (02/04/18 07:14) Bilateral Bp Monitoring (02/04/18 07:14) Iv Access Insert/Monitor (02/04/18 07:14) Oximetry (02/04/18 07:14) Oxygen Administration (02/04/18 07:14) Sodium Chloride 0.9% Flush (Ns Flush) (02/04/18 07:15) Chest, Pa & Lat (02/04/18 07:14) Metoprolol Succinate Er (Toprol Xl) (02/04/18 07:15) Valsartan (Diovan) (02/04/18 07:15) Hydrochlorothiazide (Microzide) (02/04/18 07:15) Ct Brain W/O Iv Contrast(Rout) (02/04/18 ) Sodium Chlor 0.9% 1000 Ml Inj (Ns 1000 M (02/04/18 08:45) Labs Laboratory Tests Test 02/04/18 07:20 White Blood Count 6.3 TH/MM3 Red Blood Count 3.49 MIL/MM3 Hemoglobin 10.3 GM/DL Hematocrit 31.6 % Mean Corpuscular Volume 90.5 FL Mean Corpuscular Hemoglobin 29.6 PG Mean Corpuscular Hemoglobin Concent 32.7 % Red Cell Distribution Width 15.3 % Platelet Count 169 TH/MM3 Mean Platelet Volume 9.3 FL Neutrophils (%) (Auto) 65.4 % Lymphocytes (%) (Auto) 24.9 % Monocytes (%) (Auto) 7.5 % Eosinophils (%) (Auto) 1.7 % Basophils (%) (Auto) 0.5 % Neutrophils # (Auto) 4.1 TH/MM3 Lymphocytes # (Auto) 1.6 TH/MM3 Monocytes # (Auto) 0.5 TH/MM3 Eosinophils # (Auto) 0.1 TH/MM3 Basophils # (Auto) 0.0 TH/MM3 CBC Comment DIFF FINAL Differential Comment Blood Urea Nitrogen 27 MG/DL Creatinine 1.41 MG/DL Random Glucose 143 MG/DL Total Protein 8.3 GM/DL Albumin 3.2 GM/DL Calcium Level 8.8 MG/DL Alkaline Phosphatase 132 U/L Aspartate Amino Transf (AST/SGOT) 12 U/L Alanine Aminotransferase (ALT/SGPT) 14 U/L Total Bilirubin 0.2 MG/DL Sodium Level 139 MEQ/L Potassium Level 3.9 MEQ/L Chloride Level 105 MEQ/L Carbon Dioxide Level 26.9 MEQ/L Anion Gap 7 MEQ/L Estimat Glomerular Filtration Rate 44 ML/MIN Troponin I LESS THAN 0.02 NG/ML MDM Medical Decision Making Medical Screen Exam Complete: Yes Emergency Medical Condition: Yes Interpretation(s) EKG: sinus bradycardia, no st changes No leukocytosis Renal insufficiency slightly worse than prior Troponin is normal Last 24 hours Impressions Chest X-Ray 02/04/18 0714 Signed Impressions: Service Date/Time: Sunday, February 04, 2018 07:34 - CONCLUSION: 1. No active disease. Jose Melgoza MD Head CT 02/04/18 0000 Signed Impressions: Service Date/Time: Sunday, February 04, 2018 07:41 - CONCLUSION: Normal examination for a patient of this age. Jose Melgoza MD Differential Diagnosis Subarachnoid hemorrhage, hypertensive urgency, hypertensive emergency, hemorrhagic stroke, myocardial infarction, dehydration Narrative Course This is a 77-year-old female who presents to the emergency department with neck pain, dizziness and marked hypertension on arrival. She was placed on a monitor and an IV was established. Labs demonstrate a normal troponin with some renal insufficiency which may dehydration. She was given her home blood pressure medications but her blood pressure remained high. She will be placed in observation for hypertensive urgency and I suspect her neck pain and headache are secondary to elevated blood pressure. Repeat troponins also should be obtained to rule out an anginal equivalent as she has history of coronary artery disease. Diagnosis Primary Impression: Hypertensive urgency Admitting Information Admitting Physician Requests: Observation Sheryl Ramirez MD February 04, 2018 07:18
[2018-02-04 07:48] LABS: AUTOMATED NEUTROPHIL # 4.1 TH/MM3 (1.8-7.7); BASOPHIL % 0.5 % (0.0-2.0); EOSINOPHIL # 0.1 TH/MM3 (0-0.4); EOSINOPHIL % 1.7 % (0.0-4.0); HEMATOCRIT 31.6 % (35.0-46.0); HEMOGLOBIN 10.3 GM/DL (11.6-15.3); LYMPH % 24.9 % (9.0-44.0); LYMPHOCYTE # 1.6 TH/MM3 (1.0-4.8); MEAN CELL VOLUME 90.5 FL (80.0-100.0); MEAN CORPUSCULAR HEMOGLOBIN 29.6 PG (27.0-34.0); MEAN CORPUSCULAR HGB CONC 32.7 % (32.0-36.0); MEAN PLATELET VOLUME 9.3 FL (7.0-11.0); MONO % 7.5 % (0.0-8.0); MONOCYTE # 0.5 TH/MM3 (0-0.9); NEUT % 65.4 % (16.0-70.0); PLATELET COUNT 169 TH/MM3 (150-450); RED BLOOD COUNT 3.49 MIL/MM3 (4.00-5.30); RED CELL DISTRIBUTION WIDTH 15.3 % (11.6-17.2); WHITE BLOOD COUNT 6.3 TH/MM3 (4.0-11.0)
--- NOTE | 2018-02-04 07:48 | RADRPT ---
EXAM DATE/TIME: 02/04/2018 07:34 [facility] COMPARISON: No previous studies available for comparison. INDICATIONS : Chest pain. Dizziness. MEDICAL HISTORY : Hypertension. Renal calculi. Diverticulitis. Gastroesophageal reflux disease. Diabetes. SURGICAL HISTORY : Tubal ligation. Coronary artery stent. ENCOUNTER: Initial ACUITY: 1 day PAIN SCORE: 0/10 LOCATION: Bilateral chest FINDINGS: PA and lateral views of the chest demonstrate the lungs to be symmetrically aerated without evidence of mass, infiltrate or effusion. The cardiomediastinal contours are unremarkable. Osseous structure s are intact. CONCLUSION: 1. No active disease. Jose Melgoza MD on February 04, 2018 at 7:43 Board Certified Radiologist. This report was verified electronically.
--- NOTE | 2018-02-04 07:49 | RADRPT ---
EXAM DATE/TIME: 02/04/2018 07:41 [facility] COMPARISON: No previous studies available for comparison. INDICATIONS : Cephalgia, dizziness. RADIATION DOSE: 37.63 CTDIvol (mGy) MEDICAL HISTORY : Cardiovascular disease. Hypertension. Fibromyalgia. SURGICAL HISTORY : Tubal ligation. Cardiac stent. Bilateral cataract surgery. ENCOUNTER: Initial ACUITY: 1 day PAIN SCALE: 4/10 LOCATION: cranial TECHNIQUE: Multiple contiguous axial images were obtained of the head. Using automated exposure control and adj ustment of the mA and/or kV according to patient size, radiation dose was kept as low as reasonably a chievable to obtain optimal diagnostic quality images. DICOM format image data is available electro nically for review and comparison. FINDINGS: CEREBRUM: The ventricles are normal for age. No evidence of midline shift, mass lesion, hemorrhage or acute in farction. No extra-axial fluid collections are seen. POSTERIOR FOSSA: The cerebellum and brainstem are intact. The 4th ventricle is midline. The cerebellopontine angle i s unremarkable. EXTRACRANIAL: The visualized portion of the orbits is intact. SKULL: The calvaria is intact. No evidence of skull fracture. CONCLUSION: Normal examination for a patient of this age. Jose Melgoza MD on February 04, 2018 at 7:46 Board Certified Radiologist. This report was verified electronically.
[2018-02-04 08:03] LABS: ALBUMIN 3.2 GM/DL (3.4-5.0); ALT (GPT) 14 U/L (10-53); AST (GOT) 12 U/L (15-37); BICARBONATE 26.9 MEQ/L (21.0-32.0); BLOOD UREA NITROGEN 27 MG/DL (7-18); CALCIUM 8.8 MG/DL (8.5-10.1); CHLORIDE 105 MEQ/L (98-107); CREATININE 1.41 MG/DL (0.50-1.00); GLOMERULAR FILTRATION RATE 44 ML/MIN (>89); GLUCOSE,RANDOM 143 MG/DL (74-106); SODIUM (NA) 139 MEQ/L (136-145)
[2018-02-04 08:14] LABS: ALKALINE PHOSPHATASE 132 U/L (45-117); TOTAL BILIRUBIN ADULT 0.2 MG/DL (0.2-1.0); TOTAL PROTEIN 8.3 GM/DL (6.4-8.2); TROPONIN I LESS THAN 0.02 NG/ML (0.02-0.05)
[2018-02-04] MEDS ORDERED: SODIUM CHLOR 0.9% 1000 ML INJ 1,000 ML IV SCH ×2 (08:45→10:22)
[2018-02-04] MEDS ORDERED: ASPIRIN 81 MG CHEW TAB CHEW ONE (09:30)
[2018-02-04] MEDS ORDERED: cloNIDine HCL 0.1 MG TAB PO PRN (10:30)
[2018-02-04] MEDS ORDERED: hydrALAZINE HCL 20 MG/ML VIAL IV PUSH PRN (10:30)
[2018-02-04] MEDS ORDERED: SODIUM CHLORIDE 0.9% FLUSH 10 ML FLUSH IV FLUSH PRN (10:30)
[2018-02-04] MEDS ORDERED: ACETAMINOPHEN 325 MG TAB PO PRN (10:45)
[2018-02-04] MEDS ORDERED: DOCUSATE SODIUM 100 MG CAP PO PRN (10:45)
[2018-02-04] MEDS ORDERED: ONDANSETRON ODT 4 MG TAB PO PRN (10:45)
[2018-02-04] MEDS: ENOXAPARIN SODIUM 40 MG/0.4 ML SYRINGE SQ SCH (11:27)
--- NOTE | 2018-02-04 11:53 | EKG ---
Date Performed: 02/04/2018 Time Performed: 06:58:06 PTAGE: 77 years EKG: SINUS BRADYCARDIA WITH SINUS ARRHYTHMIA BORDERLINE ECG PREVIOUS TRACING : 05/17/2017 10.36 No significant change from previous tracing noted. DOCTOR: Mian Dave Interpretating Date/Time 02/04/2018 11:53:20
--- NOTE | 2018-02-04 12:11 | HHI.HP ---
[facility] Service Family Medicine Primary Care Physician Obi Thakkar MD Admission Diagnosis hypertensive emergency Diagnoses: (1) Hypertensive emergency Diagnosis: Principal (2) Dyspnea on exertion Diagnosis: Principal (3) Renal insufficiency Diagnosis: Secondary Chief Complaint: Dizziness International Travel<30 Days: No Contact w/Intl Traveler<30days: No Known Affected Area: No History of Present Illness Ms. Warner is a 77-year-old -[place] female who presents with new onset dizziness and neck pain that began early yesterday morning. She describes the dizziness as the way it feels after spinning and says it is constant, has progressively gotten worse and is making her gait unstable. Worse with head movement and postural change, better when still. Denies previous episodes. Denies any fall/trauma. She describes the neck pain as right-sided, deep, aching, 8/10, which radiates up the back of the head to the ear and down the neck to the right shoulder. Pain is worse with movement and pressure/palpation. Patient also complains of sinus pressure, nasal drainage, sore throat, and one-week history of cough with occasional white/clear sputum worse when lying down. Also reports dyspnea on exertion even when readjusting in her bed. Reports 2 episodes of post-tussive emesis 3 days ago. Complains of accompanying hoarseness, shortness of breath, diaphoresis, nausea. Denies chest pain, chest tightness, blurry vision, hearing loss, tinnitus, diarrhea, muscle weakness/numbness/tingling, bowel or bladder movement changes, red/black BMs. Patient also admits to missing her hypertension medications this morning. (Meño Platt MD R2) Review of Systems Constitutional: COMPLAINS OF: Diaphoretic episodes Ears, nose, mouth, throat: COMPLAINS OF: Vertigo, Nasal discharge, Throat pain , Hoarseness, Running Nose, Sinus Pain, DENIES: Ear Pain Respiratory: COMPLAINS OF: Cough, Shortness of breath Cardiovascular: COMPLAINS OF: Dyspnea on Exertion, DENIES: Chest pain Gastrointestinal: COMPLAINS OF: Nausea, Vomiting, DENIES: Black stools, Bloody stools Musculoskeletal: COMPLAINS OF: Neck pain Neurologic: COMPLAINS OF: Headache, Poor Balance Other Denies fever or chills No polyuria, polydipsia Denies vision changes, eye pain, hearing changes. Reports + rhinorrhea, sore throat, runny nose No chest pain, palpitations No abdominal pain Denies constipation, diarrhea, black or bloody stools No dysuria, hematuria Denies muscle/joint pain, weakness, headache No rashes, itching (Meño Platt MD R2) Past Family Social History Past Medical History Hypertension, diabetes mellitus type 2, rheumatoid arthritis, osteoarthritis, spinal stenosis, MVP, glaucoma Past Surgical History Coronary artery stent placement 2 Knee replacement 2016 Reported Medications Reported Meds & Active Scripts Active Combigan Opth Drops (Brimonidine-Timolol Opth Drops) 0.2-0.5% Soln 1 Drop EACH EYE BID Reported Novolin 70-30 Inj (Insulin Human Isoph/Insulin Regular) 1,000 Unit/10 Ml Vial 10 Units SQ HS PRN Novolin 70-30 Inj (Insulin Human Isoph/Insulin Regular) 1,000 Unit/10 Ml Vial 14 Units SQ DAILYAC Valsartan-Hydrochlorothiazide 80-12.5 Mg Tab 1 Tab PO DAILY Clopidogrel (Clopidogrel Bisulfate) 75 Mg Tab 75 Mg PO DAILY Dorzolamide Opth Drops (Dorzolamide HCl) 2% Soln 1 Drop EACH EYE TID Metoprolol Succinate ER 24 HR (Metoprolol Succinate) 50 Mg Tab 50 Mg PO DAILY (Meño Platt MD R2) Allergies: Coded Allergies: benzalkonium chloride (Verified Allergy, Intermediate, Redness, 02/04/18) brimonidine (Verified Allergy, Intermediate, Redness, 02/04/18) travoprost (Verified Allergy, Intermediate, Redness, 02/04/18) ciprofloxacin (Verified Allergy, Mild, itching and swelling, 02/04/18) sulfamethoxazole (Verified Allergy, Unknown, 02/04/18) trimethoprim (Verified Allergy, Unknown, 02/04/18) levofloxacin (Verified Adverse Reaction, Severe, WEAKNESS, 02/04/18) Active Ordered Medications Current Medications Medications (Trade) Dose Ordered Sig/Danisha Route Start Time Stop Time Status Last Admin (NS Flush) 2 ml UNSCH PRN IVF 02/04/18 07:15 02/04/18 11:28 (NS Flush) 2 ml UNSCH PRN IV FLUSH 02/04/18 10:30 (NS Flush) 2 ml BID IV FLUSH 02/04/18 21:00 (Catapres) 0.1 mg Q6H PRN PO 02/04/18 10:30 (Apresoline Inj) 10 mg Q6H PRN IV PUSH 02/04/18 10:30 (Tylenol) 650 mg Q6H PRN PO 02/04/18 10:45 (Colace) 100 mg BID PRN PO 02/04/18 10:45 (Zofran Odt) 4 mg Q6H PRN PO 02/04/18 10:45 (Lovenox Inj) 40 mg Q24H SQ 02/04/18 10:45 02/04/18 11:27 (Plavix) 75 mg DAILY PO 02/04/18 12:15 02/04/18 12:28 (Trusopt 2% Opth Soln) 1 drop TID EACH EYE 02/04/18 13:00 02/04/18 13:58 (Toprol Xl) 50 mg DAILY PO 02/05/18 09:00 (D50w (Vial) Inj) 50 ml UNSCH PRN IV PUSH 02/04/18 12:15 (Glucagon Inj) 1 mg UNSCH PRN OTHER 02/04/18 12:15 (NovoLOG SUPPLEMENTAL SCALE) 1 ACHS SLIDING SCALE SQ 02/04/18 17:00 (Alphagan 0.2% Opth Soln) 1 drop BID EACH EYE 02/04/18 12:19 02/04/18 13:58 (Timoptic 0.5% Opth Soln) 1 drop BID EACH EYE 02/04/18 12:19 02/04/18 13:58 (Diovan) 80 mg DAILY PO 02/05/18 09:00 (Microzide) 12.5 mg DAILY PO 02/05/18 09:00 Family History FH of DM, HTN, heart disease Social History Stopped smoking in 1979, Retired, minimal exercise (Meño Platt MD R2) Physical Exam Vital Signs Vital Signs Date Time Temp Pulse Resp B/P (MAP) Pulse Ox O2 Delivery O2 Flow Rate FiO2 02/04/18 09:34 51 174/72 (106) 02/04/18 08:41 52 18 180/75 (110) 100 Room Air 02/04/18 07:55 56 18 172/74 (106) 100 Room Air 02/04/18 07:28 60 14 182/78 (112) 99 Room Air 205/82 (123) 02/04/18 07:19 100 Room Air 02/04/18 07:19 (134) Room Air 02/04/18 06:54 61 20 181/111 (134) 100 Room Air 02/04/18 06:38 97.7 67 15 198/79 (118) 100 Physical Exam GENERAL: This is a well-nourished, well-developed patient, in no apparent distress. SKIN: No rashes, ecchymoses or lesions. Cool and dry. HEAD: Atraumatic. Normocephalic. No temporal or scalp tenderness. 9/10 pain to palpation of R neck, posterior auricular, shoulder regions. Moderate scalene and trapezius tightness on right. No LAD. EYES: Saccades seen with horizontal tracking but no nystagmus. Pupils equal round and reactive. Extraocular motions intact. No scleral icterus. No injection or drainage. ENT: Nose without bleeding, purulent drainage or septal hematoma. Throat without erythema, tonsillar hypertrophy or exudate. Uvula midline. Airway patent. NECK: Trachea midline. No lymphadenopathy. No meningeal signs. CARDIOVASCULAR: Borderline bradycardic rate and regular rhythm without significant murmurs, gallops, or rubs. RESPIRATORY: Clear to auscultation. Breath sounds equal bilaterally. No wheezes , rales, or rhonchi. GASTROINTESTINAL: Abdomen soft, non-tender, nondistended. No guarding. NEUROLOGICAL: AAO 3. Recent/remote memory intact good judgment. Speech linear and goal-directed. Cranial nerves II through XII intact. Motor and sensory grossly within normal limits. Five out of 5 muscle strength in all muscle groups. Normal speech. KAYLEY intact. [id number] negative. Finger to nose test negative. Justin-Hallpike negative. Head impulse test negative. Laboratory Laboratory Tests Test 02/04/18 07:20 02/04/18 10:54 White Blood Count 6.3 Red Blood Count 3.49 Hemoglobin 10.3 Hematocrit 31.6 Mean Corpuscular Volume 90.5 Mean Corpuscular Hemoglobin 29.6 Mean Corpuscular Hemoglobin Concent 32.7 Red Cell Distribution Width 15.3 Platelet Count 169 Mean Platelet Volume 9.3 Neutrophils (%) (Auto) 65.4 Lymphocytes (%) (Auto) 24.9 Monocytes (%) (Auto) 7.5 Eosinophils (%) (Auto) 1.7 Basophils (%) (Auto) 0.5 Neutrophils # (Auto) 4.1 Lymphocytes # (Auto) 1.6 Monocytes # (Auto) 0.5 Eosinophils # (Auto) 0.1 Basophils # (Auto) 0.0 CBC Comment DIFF FINAL Differential Comment Blood Urea Nitrogen 27 Creatinine 1.41 Random Glucose 143 Total Protein 8.3 Albumin 3.2 Calcium Level 8.8 Alkaline Phosphatase 132 Aspartate Amino Transf (AST/SGOT) 12 Alanine Aminotransferase (ALT/SGPT) 14 Total Bilirubin 0.2 Sodium Level 139 Potassium Level 3.9 Chloride Level 105 Carbon Dioxide Level 26.9 Anion Gap 7 Estimat Glomerular Filtration Rate 44 Troponin I LESS THAN 0.02 (Meño Platt MD R2) Result Diagram: 02/04/1871902/04/18719 Imaging Last Impressions Chest X-Ray 02/04/1814 Signed Impressions: Service Date/Time: Sunday, February 04, 2018 07:34 - CONCLUSION: 1. No active disease. Jose Melgoza MD Head Magnetic Resonance Angiography 02/04/18 0000 Signed Impressions: Service Date/Time: Sunday, February 04, 2018 12:49 - CONCLUSION: Suspect moderate stenosis of the right cavernous carotid. Intracranial circulation is intact and unremarkable Obi Saldana MD Head CT 02/04/18 0000 Signed Impressions: Service Date/Time: Sunday, February 04, 2018 07:41 - CONCLUSION: Normal examination for a patient of this age. Jose Melgoza MD Course In the emergency department, patient had chest x-ray, troponin, CMP, CBC, EKG, normal saline IV, aspirin p.o., admission order. (Meño Platt MD R2) Caprini VTE Risk Assessment Caprini VTE Risk Assessment: Mod/High Risk (score >= 2) Caprini Risk Assessment Model Point Value = 1 Point Value = 2 Point Value = 3 Point Value = 5 Age 41-60 Minor surgery BMI > 25 kg/m2 Swollen legs Varicose veins or History of unexplained or recurrent spontaneous Oral contraceptives or hormone replacement Sepsis (< 1 month) Serious lung disease, including pneumonia (< 1 month) Abnormal pulmonary function Acute myocardial infarction Congestive heart failure (< 1 month) History of inflammatory bowel disease Medical patient at bed rest Age 61-74 Arthroscopic surgery Major open surgery (> 45 min) Laparoscopic surgery (> 45 min) Malignancy Confined to bed (> 72 hours) Immobilizing plaster cast Central venous access Age >= 75 History of VTE Family history of VTE Factor V Leiden Prothrombin [id number] Lupus anticoagulant Anticardiolipin antibodies Elevated serum homocysteine Heparin-induced thrombocytopenia Other congenital or acquired thrombophilia Stroke (< 1 month) Elective arthroplasty Hip, pelvis, or leg fracture Acute spinal cord injury (< 1 month) Prophylaxis Regimen Total Risk Factor Score Risk Level Prophylaxis Regimen 0-1 Low Early ambulation 2 Moderate Order ONE of the following: *Sequential Compression Device (SCD) *Heparin 5000 units SQ BID 3-4 Higher Order ONE of the following medications: *Heparin 5000 units SQ TID *Enoxaparin/Lovenox 40 mg SQ daily (WT < 150 kg, CrCl > 30 mL/min) *Enoxaparin/Lovenox 30 mg SQ daily (WT < 150 kg, CrCl > 10-29 mL/min) *Enoxaparin/Lovenox 30 mg SQ BID (WT < 150 kg, CrCl > 30 mL/min) AND/OR *Sequential Compression Device (SCD) 5 or more Highest Order ONE of the following medications: *Heparin 5000 units SQ TID (Preferred with Epidurals) *Enoxaparin/Lovenox 40 mg SQ daily (WT < 150 kg, CrCl > 30 mL/min) *Enoxaparin/Lovenox 30 mg SQ daily (WT < 150 kg, CrCl > 10-29 mL/min) *Enoxaparin/Lovenox 30 mg SQ BID (WT < 150 kg, CrCl > 30 mL/min) AND *Sequential Compression Device (SCD) (Meño Platt MD R2) Assessment and Plan Assessment and Plan Patient is a pleasant 77-year-old -[place] female with a h/o DM, hypertension, coronary artery stent 2, who presents with 1 day history of new onset vertigo, right-sided neck pain, and dyspnea on exertion. Presented to the ER with significantly elevated blood pressure and elevated creatinine concerning for hypertensive emergency. Denies changes in hearing or vision, chest pain. Neuro exam benign other than horizontal saccades. ACS rule out. Chest x-ray and EKG negative. MRI/MRA brain ordered to rule out stroke. Antihypertensives on board. Monitor kidney function. Code Status Full code. Discussed Condition With Discussed condition and treatment options with patient. She expressed understanding of the risks, benefits, indications, contraindications. d/w Dr. Erickson (Meño Platt MD R2) Attending Attestation Patient seen and examined in ED after admission by resident team. Discussed with resident team. I agree with assessment and management as documented and discussed with me. The patient has been seen and examined. The chart and all resident notes have been reviewed. I agree that inpatient care is appropriate and that a two midnight stay is expected for the reasons documented in the resident history and physical. I have discussed this with the resident and certify the resident s order for inpatient admission. Pt admitted for hypertensive emergency and dizziness. Evaluation as ordered by resident team. Blood pressure has improved after medications administered. (Umu Erickson MD) Problem List: (1) Dizziness ICD Codes: R42 - Dizziness and giddiness Status: Acute Plan: Dizziness for the past 24 hours -MRI/MRA-brain -Orthostatic vitals -Chest x-ray negative, UA pending -Head of the bed 30 because of c/f CVA -Neuro checks -PT (2) Hypertensive emergency ICD Codes: I16.1 - Hypertensive emergency Status: Acute Plan: Continue home medications-metoprolol and valsartan and HCTZ Hydralazine as needed Clonidine as needed Titrate up as needed Monitor renal function If nonresponsive to medication, consider Cardene drip (3) Dyspnea on exertion ICD Codes: R06.09 - Other forms of dyspnea Status: Acute Plan: likely component of CHF ACS rule out with q6h EKG, troponin monitoring manager with telemetry Continue home medications Monitor I&Os O2 PRN monitor pulse ox IS (4) Renal insufficiency ICD Codes: N28.9 - Disorder of kidney and ureter, unspecified Status: Acute Plan: Creatinine 1.41 BUN 27 GFR 44 Monitor BMP daily (5) Stented coronary artery ICD Codes: Z95.5 - Presence of coronary angioplasty implant and graft Plan: -continue home Plavix (6) Primary open angle glaucoma (POAG) of both eyes, moderate stage ICD Codes: H40.1132 - Primary open-angle glaucoma, bilateral, moderate stage Status: Chronic Plan: Continue home medication (7) Rheumatoid arthritis involving right knee ICD Codes: M06.9 - Rheumatoid arthritis, unspecified Status: Chronic Plan: Continue home medications No complaints at this time (8) Primary osteoarthritis of right knee ICD Codes: M17.11 - Unilateral primary osteoarthritis, right knee Status: Chronic Plan: No complaints at this time (9) Diabetes ICD Codes: E11.9 - Type 2 diabetes mellitus without complications Plan: -hypoglycemia protocol ordered -low SSI -monitor BG (10) No contraindication to deep vein thrombosis (DVT) prophylaxis ICD Codes: Z78.9 - Other specified health status Plan: Lovenox sq qd (11) Nutrition, metabolism, and development symptoms ICD Codes: R63.8 - Other symptoms and signs concerning food and fluid intake Plan: Fluids: tolerating PO, c/f CHF, so careful with IVF Lytes: monitor and replete Nutrition: DM/Heart healthy diet GI ppx: not indicated (Meño Platt MD R2) Physician Certification 2 Midnight Certification Type: Admission for Inpatient Services Order for Inpatient Services The services are ordered in accordance with Medicare regulations or non- Medicare payer requirements, as applicable. In the case of services not specified as inpatient-only, they are appropriately provided as inpatient services in accordance with the 2-midnight benchmark. Estimated LOS (days): 2 2 days is the estimated time the patient will need to remain in the hospital, assuming treatment plan goals are met and no additional complications. Post-Hospital Plan: Home (Meño Platt MD R2) Problem Qualifiers (1) Rheumatoid arthritis involving right knee: Qualified Codes: M06.9 - Rheumatoid arthritis, unspecified Meño Platt MD R2 February 04, 2018 12:11 Umu Erickson MD February 04, 2018 21:19
[2018-02-04] MEDS ORDERED: GLUCAGON 1 MG/ML VIAL OTHER PRN (12:15)
[2018-02-04] MEDS ORDERED: DEXTROSE 50% IN WATER 50 ML VIAL(D50) IV PUSH PRN (12:15)
[2018-02-04] MEDS ORDERED: NON-FORMULARY DRUG (Brimonidine-Timolol Opth Drops (Combigan Opth Drops) 1 DROP) EACH EYE SCH (12:15)
[2018-02-04] MEDS ORDERED: LORazepam 0.5 MG TAB PO ONE (12:15)
[2018-02-04] MEDS: CLOPIDOGREL 75 MG TAB PO SCH (12:28)
[2018-02-04] MEDS ORDERED: LORazepam 2 MG/ML VIAL IV PUSH ONE (12:30)
[2018-02-04] MEDS: BRIMONIDINE TARTRATE 0.2% OPHT SOLN 5 ML BTL EACH EYE SCH ×2 (13:58→20:50)
[2018-02-04] MEDS: DORZOLAMIDE 2% OPTH SOLN 200 DROP/10 ML BTLO EACH EYE SCH ×2 (13:58→17:32)
[2018-02-04] MEDS: TIMOLOL MALEATE 0.5% OPHT SOLN 5 ML BTL EACH EYE SCH ×2 (13:58→20:50)
--- NOTE | 2018-02-04 14:12 | RADRPT ---
EXAM DATE/TIME: 02/04/2018 12:49 [facility] COMPARISON: No previous studies available for comparison. INDICATIONS : CVA. Dizziness for one day. MEDICAL HISTORY : Diabetes mellitus type 2. Hypertension. SURGICAL HISTORY : Total knee replacement, right. Coronary artery stent. Tubal ligation. Hernia sx. ENCOUNTER: Initial ACUITY: 1 day PAIN SCORE: 2/10 LOCATION: Bilateral cranial Please note a normal MRA of the brain does not entirely exclude the possibility of a small aneurysm, nor the possibility of distal intracranial vessel disease. TECHNIQUE: 3D time of flight MRA was performed. Source images, multiplanar STS MIP, and 3D volume MIP reconstru ctions were reviewed. FINDINGS: There appears to be moderate focal concentric stenosis involving the anterior genu of the right jose nous carotid area the [place] of [place] vessels are intact and unremarkable with no evidence of major vessel occlusion or stenosis. No aneurysm or vascular malformation is identified. CONCLUSION: Suspect moderate stenosis of the right cavernous carotid. Intracranial circulation is intact and unre markable Obi Saldana MD on February 04, 2018 at 14:08 Board Certified Radiologist. This report was verified electronically.
--- NOTE | 2018-02-04 15:09 | RADRPT ---
EXAM DATE/TIME: 02/04/2018 12:49 [facility] COMPARISON: No previous studies available for comparison. INDICATIONS : CVA. Dizziness for one day. MEDICAL HISTORY : Hypertension. Diabetes mellitus type 2. SURGICAL HISTORY : Coronary artery stent. Total knee replacement, right. Tubal ligation. Stomach sx. ENCOUNTER: Initial ACUITY: 1 day PAIN SCORE: 2/10 LOCATION: Bilateral cranial TECHNIQUE: Multiplanar, multisequence MRI of the brain was performed without contrast. FINDINGS: CEREBRUM: The ventricles are normal for age. No evidence of midline shift, mass lesion, hemorrhage or acute in farction. No extraaxial fluid collections are seen. The pituitary gland and suprasellar cistern are normal in configuration. WHITE MATTER: Mild periventricular and scattered deep white matter tracts small vessel ischemic demyelination. POSTERIOR FOSSA: The cerebellum and brainstem are intact. The 4th ventricle is midline. The cerebellopontine angle is unremarkable. The cerebellar tonsils are normal in position. DIFFUSION IMAGING: No focal areas of restricted diffusion are seen. No evidence of acute infarction. EXTRACRANIAL: The visualized portions of the orbits and paranasal sinuses are unremarkable. CONCLUSION: 1. Mild periventricular and scattered deep white matter tract smallvessel ischemic demyelination. 2. Nothing acute Aric Schwartz MD on February 04, 2018 at 15:04 Board Certified Radiologist. This report was verified electronically.
[2018-02-04] MEDS: INSULIN ASPART SUPPLEMENTAL SCALE SQ SCH ×2 (17:00→20:55)
[2018-02-04 18:32] LABS: BILIRUBIN, URINE NEG (NEG); BLOOD, URINE NEG (NEG); GLUCOSE,URINE NEG (NEG); KETONE, URINE NEG (NEG); NITRITE,URINE NEG (NEG); PH, URINE 6.5 (5.0-8.5); URINE COLOR YELLOW (YELLW/STRAW); URINE LEUKOCYTE ESTERASE NEG (NEG)
[2018-02-04 18:55] LABS: MUCUS URINE FEW /lpf (OCC); SQUAMOUS EPITHELIAL CELL URINE 2 /hpf (0-5)
[2018-02-04] MEDS: SODIUM CHLORIDE 0.9% FLUSH 10 ML FLUSH IV FLUSH SCH (20:56)
[2018-02-05] VITALS (9 sets, daily range): BP systolic 150–180; BP diastolic 61–81; PULSE 50–63; RESP 16–20; TEMP 97.3–98; O2SAT 98–100
[2018-02-05 06:07] LABS: AUTOMATED NEUTROPHIL # 3.3 TH/MM3 (1.8-7.7); BASOPHIL % 0.2 % (0.0-2.0); EOSINOPHIL # 0.1 TH/MM3 (0-0.4); EOSINOPHIL % 1.4 % (0.0-4.0); HEMOGLOBIN 10.2 GM/DL (11.6-15.3); LYMPH % 21.9 % (9.0-44.0); LYMPHOCYTE # 1.1 TH/MM3 (1.0-4.8); MEAN CELL VOLUME 90.1 FL (80.0-100.0); MEAN CORPUSCULAR HEMOGLOBIN 29.8 PG (27.0-34.0); MEAN PLATELET VOLUME 9.3 FL (7.0-11.0); MONO % 9.1 % (0.0-8.0); MONOCYTE # 0.4 TH/MM3 (0-0.9); NEUT % 67.4 % (16.0-70.0); PLATELET COUNT 151 TH/MM3 (150-450); RED BLOOD COUNT 3.44 MIL/MM3 (4.00-5.30); RED CELL DISTRIBUTION WIDTH 15.3 % (11.6-17.2); WHITE BLOOD COUNT 4.9 TH/MM3 (4.0-11.0)
[2018-02-05 06:37] LABS: BICARBONATE 24.4 MEQ/L (21.0-32.0); BLOOD UREA NITROGEN 22 MG/DL (7-18); CALCIUM 9.2 MG/DL (8.5-10.1); CHLORIDE 104 MEQ/L (98-107); CREATININE 1.04 MG/DL (0.50-1.00); GLOMERULAR FILTRATION RATE 62 ML/MIN (>89); GLUCOSE,RANDOM 135 MG/DL (74-106); SODIUM (NA) 139 MEQ/L (136-145)
[2018-02-05 06:42] LABS: TROPONIN I LESS THAN 0.02 NG/ML (0.02-0.05)
[2018-02-05] MEDS: BRIMONIDINE TARTRATE 0.2% OPHT SOLN 5 ML BTL EACH EYE SCH (08:21)
[2018-02-05] MEDS: TIMOLOL MALEATE 0.5% OPHT SOLN 5 ML BTL EACH EYE SCH (08:23)
[2018-02-05] MEDS: DORZOLAMIDE 2% OPTH SOLN 200 DROP/10 ML BTLO EACH EYE SCH (08:23)
[2018-02-05] MEDS: SODIUM CHLORIDE 0.9% FLUSH 10 ML FLUSH IV FLUSH SCH (08:24)
[2018-02-05] MEDS: CLOPIDOGREL 75 MG TAB PO SCH (08:25)
[2018-02-05] MEDS ORDERED: VALSARTAN 80 MG TAB PO SCH (09:00)
[2018-02-05] MEDS ORDERED: METOPROLOL SUCCINATE 50 MG EXTENDED RELEASE TAB PO SCH (09:00)
[2018-02-05] MEDS ORDERED: NON-FORMULARY DRUG (Valsartan-Hydrochlorothiazide 1 TAB) PO SCH (09:00)
[2018-02-05] MEDS ORDERED: HYDROCHLOROTHIAZIDE 12.5 MG CAP PO SCH (09:00)
[2018-02-05] MEDS ORDERED: VALS160T4 PO (09:53)
--- NOTE | 2018-02-05 09:55 | HHI.DCPOC ---
Discharge Care Plan Diagnosis: (1) Hypertensive emergency (2) Dizziness (3) Dyspnea on exertion Goals to Promote Your Health * To prevent worsening of your condition and complications, please take medications as prescribed. * To maintain your health at the optimal level, please follow up with your primary care provider. Directions to Meet Your Goals Take your medications as prescribed Follow your dietary instruction Follow activity as directed Keep your appointments as scheduled Take your immunizations and boosters as scheduled If your symptoms worsen call your PCP, if no PCP go to Urgent Care Center or Emergency Room Smoking is Dangerous to Your Health. Avoid second hand smoke Call the 24-hour hour crisis hotline for domestic abuse at Meño Platt MD R2 February 05, 2018 09:55
--- NOTE | 2018-02-05 10:10 | HHI.FF ---
Face to Face Verification Diagnosis: (1) Dyspnea on exertion (2) Hypertensive emergency (3) Stented coronary artery (4) Diabetes Physical Therapy Order: Evaluate and Treat, Improve ambulation, Strength and gait training Instructions: ASSESSMENT: PT WITHOUT COORDINATION OR MYOTOMAL UPPER/LOWER EXTREMITY STRENGTH DEFICITS. NOTED WIDE BASE OF SUPPORT DURING TRSFR SIT TO STAND AND REQUIRED SEVERAL ATTEMPTS C SINGLE POINT CANE AND CONTRALATERAL SUPPORT ON BED. NOTED DECREASED STRIDE LENGTHS BILAT C SINGLE POINT CANE (LATTER IS ALSO NOT CORRECT HEIGHT FOR PT AND NEEDS TO BE CUT-WOODEN.) IMPROVED STRIDES, BUT MANPREET REMAINS SLOW AND C FLEXED POSTURE USING FRONT WHEELED WALKER. NO VERTIGO REPORTED THROUGHOUT SESSION, NAUSEA AND LIGHTHEADED C SITTING. RESTRICTED ACTIVE ROM CERVICAL SPINE. SELF CARE CURRENT G1-2 AND GOAL G103 ARE BOTH CI PLAN OF CARE: PHYSICAL THERAPY 5 TIMES A WEEK SUNDAY THROUGH SUNDAY X LENGTH OF STAY FOR THERAPEUTIC EXERCISES, BED MOBILITY TRAINING, TRANSFER TRAINING, GAIT AND BALANCE IF APPROPRIATE, AND PATIENT EDUCATION. REHAB POTENTIAL: GOOD PATIENTS PERSONAL GOALS: FEEL BETTER GOALS: (1 WEEK)- 1)SIT->STAND INDEP. 2)GAIT STAND BY ASSIST C FRONT WHEELED WALKER AT LEAST 150 I have seen patient Gladis Warner on 02/05/18. My clinical findings support the need for the requested home health care services because: Ltd mobility - disease progression Patient has SOB Deconditioned w/ increased weakness Med compliance is questionable Limited ability to care for self High risk of falls I certify that my clinical findings support that this patient is homebound because: Unsteady gait/balance Poor cardiac reserve Meño Platt MD R2 February 05, 2018 10:10
[2018-02-05] MEDS: ENOXAPARIN SODIUM 40 MG/0.4 ML SYRINGE SQ SCH (10:27)
[2018-02-05] MEDS: INSULIN ASPART SUPPLEMENTAL SCALE SQ SCH (10:27)
--- NOTE | 2018-02-05 11:24 | HHI.FPPN ---
Subjective Remarks Patient seen and examined. Feels better today. Blood pressure normalized. Reports dizziness/nausea has improved. Feels gait has steadied. Right-sided neck pain has remained constant, worse with movement, tender to palpation. She recalled awkward sleep positioning on Sunday and a significant MSK history. She continues to cough during encounter and complain of sinus pressure. Reports history of seasonal allergies. Discussed discharge planning with patient, and the importance of following up with primary care. Patient expressed understanding. (Meño Platt MD R2) Objective Vitals Vital Signs Date Time Temp Pulse Resp B/P (MAP) Pulse Ox O2 Delivery O2 Flow Rate FiO2 02/05/18 11:03 97.3 56 18 158/70 (99) 99 02/05/18 07:48 157/61 (93) 02/05/18 07:46 63 18 157/61 (93) 100 02/05/18 07:40 98.0 55 18 169/73 (105) 99 02/05/18 03:29 97.6 57 16 150/65 (93) 98 02/04/18 23:41 97.4 53 16 147/68 (94) 98 02/04/18 20:27 97.3 52 16 149/67 (94) 99 148/75 (99) 149/73 (98) 02/04/18 19:56 95 02/04/18 18:11 97.9 50 18 181/75 (110) 99 02/04/18 15:00 47 02/04/18 14:18 98.7 56 18 163/71 (101) 99 166/73 (104) 147/66 (93) 02/04/18 12:09 179/76 (110) I/O 02/04/18 02/04/18 02/04/18 02/05/18 02/05/18 02/05/18 07:00 15:00 23:00 07:00 15:00 23:00 Intake Total 1000 ml 720 ml Balance 1000 ml 720 ml Intake Oral 420 ml IV Total 1000 ml 300 ml # Voids 1 (Meño Platt MD R2) Result Diagram: 02/05/18 0538 02/05/18 0538 Imaging Last 72 hours Impressions Chest X-Ray 02/04/18 0714 Signed Impressions: Service Date/Time: Sunday, February 04, 2018 07:34 - CONCLUSION: 1. No active disease. Jose Melgoza MD Head Magnetic Resonance Angiography 02/04/18 0000 Signed Impressions: Service Date/Time: Sunday, February 04, 2018 12:49 - CONCLUSION: Suspect moderate stenosis of the right cavernous carotid. Intracranial circulation is intact and unremarkable Obi Saldana MD Head CT 02/04/18 0000 Signed Impressions: Service Date/Time: Sunday, February 04, 2018 07:41 - CONCLUSION: Normal examination for a patient of this age. Jose Melgoza MD Brain MRI 02/04/18 0000 Signed Impressions: Service Date/Time: Sunday, February 04, 2018 12:49 - CONCLUSION: 1. Mild periventricular and scattered deep white matter tract smallvessel ischemic demyelination. 2. Nothing acute Aric Schwartz MD Objective Remarks GENERAL: This is a well-nourished, well-developed patient, in no apparent distress. SKIN: No rashes, ecchymoses or lesions. Cool and dry. HEAD: Atraumatic. Normocephalic. pain to palpation of R neck. No LAD. EYES: Pupils equal round and reactive. Extraocular motions intact. No scleral icterus. No injection or drainage. ENT: Nose without bleeding, purulent drainage or septal hematoma. MMM. Airway patent. NECK: Trachea midline. No lymphadenopathy. No meningeal signs. CARDIOVASCULAR: Borderline bradycardic rate and regular rhythm without significant murmurs, gallops, or rubs. RESPIRATORY: Clear to auscultation. Breath sounds equal bilaterally. No wheezes , rales, or rhonchi. GASTROINTESTINAL: Abdomen nondistended. NEUROLOGICAL: Cranial nerves II through XII grossly intact. Motor and sensory grossly within normal limits. Normal speech. Medications and IVs Current Medications Medications (Trade) Dose Ordered Sig/Danisha Route Start Time Stop Time Status Last Admin (NS Flush) 2 ml UNSCH PRN IVF 02/04/18 07:15 02/04/18 11:28 (NS Flush) 2 ml UNSCH PRN IV FLUSH 02/04/18 10:30 (NS Flush) 2 ml BID IV FLUSH 02/04/18 21:00 02/05/18 08:24 (Catapres) 0.1 mg Q6H PRN PO 02/04/18 10:30 02/04/18 18:23 (Apresoline Inj) 10 mg Q6H PRN IV PUSH 02/04/18 10:30 (Tylenol) 650 mg Q6H PRN PO 02/04/18 10:45 (Colace) 100 mg BID PRN PO 02/04/18 10:45 (Zofran Odt) 4 mg Q6H PRN PO 02/04/18 10:45 (Lovenox Inj) 40 mg Q24H SQ 02/04/18 10:45 02/05/18 10:27 (Plavix) 75 mg DAILY PO 02/04/18 12:15 02/05/18 08:25 (Trusopt 2% Opth Soln) 1 drop TID EACH EYE 02/04/18 13:00 02/05/18 08:23 (Toprol Xl) 50 mg DAILY PO 02/05/18 09:00 02/05/18 08:24 (D50w (Vial) Inj) 50 ml UNSCH PRN IV PUSH 02/04/18 12:15 (Glucagon Inj) 1 mg UNSCH PRN OTHER 02/04/18 12:15 (NovoLOG SUPPLEMENTAL SCALE) 1 ACHS SLIDING SCALE SQ 02/04/18 17:00 02/05/18 10:27 (Alphagan 0.2% Opth Soln) 1 drop BID EACH EYE 02/04/18 12:19 02/05/18 08:21 (Timoptic 0.5% Opth Soln) 1 drop BID EACH EYE 02/04/18 12:19 02/05/18 08:23 (Diovan) 80 mg DAILY PO 02/05/18 09:00 02/05/18 08:24 (Microzide) 12.5 mg DAILY PO 02/05/18 09:00 02/05/18 08:24 (Meño Platt MD R2) A/P Assessment and Plan Patient is a pleasant 77-year-old -[place] female with a h/o DM, hypertension, coronary artery stent 2, who presents with 1 day history of new onset vertigo, right-sided neck pain, and dyspnea on exertion. Presented to the ER with significantly elevated blood pressure and elevated creatinine concerning for hypertensive emergency. Blood pressure controlled with medication and creatinine normalized overnight. For dyspnea on exertion, ACS ruled out. For acute onset of dizziness, MRI/MRA brain ordered to rule out stroke. Current differential diagnosis includes vestibular neuritis versus eustachian tube dysfunction. Blood pressure stable. Vertigo, nausea, gait instability resolving. Discharging today. Discussed with patient importance of following up with PCP as outpatient. Discharge Planning Today. Increased patient's antihypertensive medication with recommendation to follow-up with PCP. (Meño Platt MD R2) Attending Attestation Patient seen, examined, and discussed with resident team. I agree with assessment and management as documented and discussed with me. Pt reports feeling better. Blood pressure has improved. Discussed with patient that the dose of her valsartan is being increased from 80mg to 160mg. Discharge home today. (Umu Erickson MD) Problem List: (1) Dizziness ICD Codes: R42 - Dizziness and giddiness Status: Acute Plan: resolving. -MRI/MRA-brain negative -Orthostatic vitals negative -Chest x-ray negative, UA negative -Neuro checks negative -PT recommended home health with physical therapy -Recommend patient follow-up with PCP (2) Hypertensive emergency ICD Codes: I16.1 - Hypertensive emergency Status: Resolved Plan: Continue home medications-metoprolol and valsartan and HCTZ Increased dose of valsartan p.o. for discharge Follow-up with PCP (3) Dyspnea on exertion ICD Codes: R06.09 - Other forms of dyspnea Status: Acute Plan: Likely component of CHF Resolved, continued occasional cough ACS rule out negative night monitor with telemetry negative Continue home medications (4) Renal insufficiency ICD Codes: N28.9 - Disorder of kidney and ureter, unspecified Status: Resolved Plan: 02/05 creatinine 1.04 BUN 22 02/04 creatinine 1.41 BUN 27 GFR 44 (5) Stented coronary artery ICD Codes: Z95.5 - Presence of coronary angioplasty implant and graft Plan: -continue home Plavix (6) Primary open angle glaucoma (POAG) of both eyes, moderate stage ICD Codes: H40.1132 - Primary open-angle glaucoma, bilateral, moderate stage Status: Chronic Plan: Continue home medication (7) Rheumatoid arthritis involving right knee ICD Codes: M06.9 - Rheumatoid arthritis, unspecified Status: Chronic Plan: Continue home medications No complaints at this time (8) Primary osteoarthritis of right knee ICD Codes: M17.11 - Unilateral primary osteoarthritis, right knee Status: Chronic Plan: No complaints at this time (9) Diabetes ICD Codes: E11.9 - Type 2 diabetes mellitus without complications Plan: -hypoglycemia protocol ordered -low SSI -monitor BG (10) No contraindication to deep vein thrombosis (DVT) prophylaxis ICD Codes: Z78.9 - Other specified health status Plan: Lovenox sq qd (11) Nutrition, metabolism, and development symptoms ICD Codes: R63.8 - Other symptoms and signs concerning food and fluid intake Plan: Fluids: tolerating PO, c/f CHF, so careful with IVF Lytes: monitor and replete Nutrition: DM/Heart healthy diet GI ppx: not indicated (Meño Platt MD R2) Problem Qualifiers (1) Rheumatoid arthritis involving right knee: Qualified Codes: M06.9 - Rheumatoid arthritis, unspecified Meño Platt MD R2 February 05, 2018 11:24 Umu Erickson MD February 05, 2018 20:38
--- NOTE | 2018-02-05 16:44 | EKG ---
Date Performed: 02/04/2018 Time Performed: 16:24:07 PTAGE: 77 years EKG: SINUS BRADYCARDIA WITH MARKED SINUS ARRHYTHMIA WITH FIRST DEGREE AV BLOCK POSSIBLE INFERIOR MYOCARDIAL INFARCTION ABNORMAL ECG PREVIOUS TRACING : 02/04/2018 06.58 Since the previous tracing, no significant change noted DOCTOR: Boyd Adhikari Interpretating Date/Time 02/05/2018 16:42:36
--- NOTE | 2018-02-05 16:44 | EKG ---
Date Performed: 02/04/2018 Time Performed: 22:22:09 PTAGE: 77 years EKG: SINUS BRADYCARDIA WITH SINUS ARRHYTHMIA BORDERLINE ECG PREVIOUS TRACING : 02/04/2018 16.24 Since the previous tracing, no significant change noted DOCTOR: Boyd Adhikari Interpretating Date/Time 02/05/2018 16:42:52
== END 2018-02-05 17:43 | disposition home or self-care (01) | DRG 305 ==
LOC: NEPE 06:34 → NEDA 09:25 → OBSVTOIN 12:02 → INTOOBSV 12:02 → NEPGCP 12:03
PROVIDERS: ADMIT Family Medicine; ATTEND Family Medicine
DX: I16.1 Hypertensive emergency (principal); E11.9 Type 2 diabetes mellitus without complications; Z79.4 Long term (current) use of insulin; I11.0 Hypertensive heart disease with heart failure; I50.9 Heart failure, unspecified; Z95.5 Presence of coronary angioplasty implant and graft; Z79.02 Long term (current) use of antithrombotics/antiplatelets; M06.9 Rheumatoid arthritis, unspecified; N28.9 Disorder of kidney and ureter, unspecified; H40.1132 Primary open-angle glaucoma, bilateral, moderate stage; R42 Dizziness and giddiness; Z96.659 Presence of unspecified artificial knee joint; Z87.891 Personal history of nicotine dependence
CPT/HCPCS: 70450; 70544; 70551; 71046; 80048; 80053; 81001; 82948; 84484; 85025; 93005; 94150; G8987-GP; G8988-GP; J1650; J1815; J2060; J7030

== ENCOUNTER 2018-05-16 22:46 | Observation (INO) ==
[2018-05-17] MEDS ORDERED: Aluminum/Magnesium/Simethacone Susp 30 ML UDC PO ONE (00:08)
[2018-05-17] MEDS ORDERED: Famotidine PF Inj 20 MG/2 ML Vial IV.PUSH ONE (00:08)
[2018-05-17 00:42] LABS: Baso % (Auto) 0.5 % (0.0-2.0); Eos # (Auto) 0.1 th/mm3 (0.0-0.4); Eos % (Auto) 1.3 % (0.0-4.0); Hematocrit 30.1 % (35.0-46.0); Hemoglobin 9.8 gm/dL (11.6-15.3); Lymph # (Auto) 1.7 th/mm3 (1.0-4.8); Lymph % (Auto) 25.8 % (9.0-44.0); Mean Corpuscular HGB Conc 32.7 % (32.0-36.0); Mean Corpuscular Hemoglobin 30.6 pg (27.0-34.0); Mean Corpuscular Volume 93.5 fL (80.0-100.0); Mean Platelet Volume 10.2 fL (7.0-11.0); Mono # (Auto) 0.6 th/mm3 (0.0-0.9); Mono % (Auto) 8.5 % (0.0-8.0); Neut # (Auto) 4.3 th/mm3 (1.8-7.7); Neut % (Auto) 63.9 % (16.0-70.0); Platelet Count 152 th/mm3 (150-450); Red Blood Count 3.22 mil/mm3 (4.00-5.30); Red Cell Distribution Width 15.2 % (11.6-17.2); White Blood Count 6.7 th/mm3 (4.0-11.0)
[2018-05-17 00:52] LABS: Activated Partial Thrombo Time 28.4 sec (24.3-30.1); INR 1.1 Ratio; Prothrombin Time 10.9 sec (9.8-11.6)
--- NOTE | 2018-05-17 00:53 | XR ---
EXAM DATE: 05/17/2018 12:46 AM EDT AGE/SEX: 77 years / Female INDICATIONS: Heartburn for a few days, worse today. CLINICAL DATA: This is the patient's initial encounter. Patient reports that signs and symptoms have been present for 4 - 6 days and indicates a pain score of 2/10. MEDICAL/SURGICAL HISTORY: . Renal calculi. Diverticulitis. Gastroesophageal reflux disease. Janet betes, . Tubal ligation. Coronary artery stent COMPARISON: [facility] [place] & [place], 02/04/2018. . FINDINGS: A single AP view of the chest demonstrates the lungs to be symmetrically aerated without evidence of mass, infiltrate or effusion. The cardiomediastinal contours are unremarkable. Osseous structures a re intact. CONCLUSION: Negative examination. Electronically signed by: Sadiq Issa MD 05/17/2018 12:52 AM EDT
[2018-05-17] MEDS ORDERED: hydrALAZINE 25 MG Tablet PO ONE (01:05)
[2018-05-17 01:13] LABS: Alanine Aminotransferase 12 U/L (10-53); Albumin 3.1 g/dL (3.4-5.0); Anion Gap 9 meq/L (5-15); Aspartate Aminotransferase 11 U/L (15-37); Blood Urea Nitrogen 27 mg/dL (7-18); Carbon Dioxide 26.1 meq/L (21.0-32.0); Chloride 106 meq/L (98-107); Glomerular Filtration Rate 47 mL/min (>89); Glucose,Random 129 mg/dL (74-106); Lipase 165 U/L (73-393); Potassium 3.5 meq/L (3.5-5.1); Sodium 141 meq/L (136-145)
[2018-05-17 01:17] LABS: Alkaline Phosphatase 107 U/L (45-117); Total Protein 7.8 g/dL (6.4-8.2)
[2018-05-17 01:23] LABS: Creatine Kinase 74 U/L (26-192)
[2018-05-17] MEDS ORDERED: Acetaminophen 500 MG Tablet PO PRN (02:59)
--- NOTE | 2018-05-17 02:59 | ED ---
HPI General Chief complaint: Medical Clearance Stated complaint: Heartburn Time Seen by Provider: 05/16/18 23:51 Source: patient Mode of arrival: ambulatory Limitations: no limitations History of Present Illness HPI narrative: Patient is a 77-year-old female who comes in complaining of chest pain that radiates up towards her neck. She says she feels a burning sensation in her chest. She does have a history of heartburn, but says this feels different and is worse. She took some with minimal relief of her symptoms. She denies nausea or vomiting. She denies any shortness breath. She does have history of 2 cardiac stents in the past. She did take 4 aspirin prior to coming in. Severity is mild to moderate. Related Data Home Medications Medication Instructions Recorded Confirmed Plavix 75 mg PO DAILY 05/16/18 05/16/18 insulin NPH and regular human 16 unit SUB-Q DAILY 05/16/18 05/16/18 [Novolin 70/30 U-100 Insulin] losartan 25 mg PO DAILY 05/16/18 05/16/18 metoprolol succinate 50 mg PO DAILY 05/16/18 05/16/18 ranitidine HCl 75 mg PO BID PRN 05/16/18 05/16/18 Allergies Allergy/AdvReac Type Severity Reaction Status Date / Time benzalkonium chloride Allergy Intermediate Redness Verified 05/16/18 23:09 brimonidine Allergy Intermediate Redness Verified 05/16/18 23:09 travoprost Allergy Intermediate Redness Verified 05/16/18 23:09 ciprofloxacin Allergy Mild itching Verified 05/16/18 23:09 and swelling sulfamethoxazole Allergy Unknown Nausea Verified 05/16/18 23:09 trimethoprim Allergy Unknown Nausea Verified 05/16/18 23:09 levofloxacin AdvReac Severe WEAKNESS Verified 05/16/18 23:09 Review of Systems ROS: all other systems reviewed are negative Constitutional Denies chills and Denies fever(s) ENT Denies dizziness Cardiovascular Reports chest pain Respiratory Denies cough and Denies dyspnea Gastrointestinal Denies abdominal pain, Denies nausea and Denies vomiting Musculoskeletal Denies myalgias and Denies arthralgias Integumentary/Breasts Denies rash Neurologic Denies focal weakness and Denies numbness [facility] Medical History Medical History Bradycardia (Acute) Diabetes (Acute) GERD (gastroesophageal reflux disease) (Acute) Hypertension (Acute) Surgical History Surgical History H/O hernia repair (Acute) History of heart artery stent (Acute) History of total right knee replacement (Acute) Social History Social History Substance History: No History of Abuse Second Hand Smoke Exposure: No Smoking Status: Former smoker Tobacco Type: Cigarettes How Often Do You Have a Drink Containing Alcohol: Never Recent Travel in [facility] within the Last 8 Weeks: No Recent Out of Country Travel within the Last 8 Weeks: No Immunization History Tetanus Immunization: Unsure Hx Influenza Vaccine This Season: Yes Exam Narrative Exam Narrative: GENERAL: Awake and alert, no acute distress. SKIN: Focused skin assessment warm/dry. HEAD: Atraumatic. Normocephalic. EYES: Pupils equal and round. No scleral icterus. ENT: Mucous membranes pink and moist. NECK: Trachea midline. No JVD. CARDIOVASCULAR: Regular rate and rhythm. No murmur appreciated. RESPIRATORY: No accessory muscle use. Clear to auscultation. Breath sounds equal bilaterally. GASTROINTESTINAL: Abdomen soft, non-tender, nondistended. MUSCULOSKELETAL: No obvious deformities. No clubbing. No cyanosis. No edema. NEUROLOGICAL: Awake and alert. No obvious cranial nerve deficits. Motor grossly within normal limits. Normal speech. PSYCHIATRIC: Appropriate mood and affect; insight and judgment normal. Course Initial Documented Vital Signs Temperature 97.8 F 05/16/18 23:09 Pulse Rate 65 05/16/18 23:09 Respiratory Rate 16 05/16/18 23:09 Blood Pressure 197/89 H 05/16/18 23:09 Pulse Oximetry 100 05/16/18 23:09 Last Documented Vital Signs Temperature 97.6 F 05/17/18 04:00 Pulse Rate 36 L 05/17/18 05:02 Respiratory Rate 18 05/17/18 04:00 Blood Pressure 144/61 H 05/17/18 04:00 Pulse Oximetry 100 05/17/18 04:00 Medical Decision Making MDM Narrative Medical decision making narrative: Patient is a 77-year-old female with who comes in complaining of chest pain. Exam shows no acute abnormalities. IV established, labs sent. She connected to the quality assurance monitor final. Labs show no acute abnormalities. Patient given GI cocktail. She did take aspirin at home. She reports minimal relief after nitro as well as a GI cocktail. Based on history, she will be placed in chest pain center to rule out ACS Medical Screen Exam Complete: Yes Emergency Medical Condition: Yes Differential Diagnosis Differential Diagnosis: ACS versus GERD versus NSTEMI versus STEMI Medical Records Medical records reviewed: Yes I reviewed the patient's medical records. Lab Data Lab results reviewed: Yes I reviewed the patient's lab results. Result diagrams: 05/17/18 00:15 05/17/18 00:15 Lab Results 05/17/18 05/17/18 05/17/18 Range/Units 00:15 00:15 00:15 WBC 6.7 (4.0-11.0) th/mm3 RBC 3.22 L (4.00-5.30) mil/mm3 Hgb 9.8 L (11.6-15.3) gm/dL Hct 30.1 L (35.0-46.0) % MCV 93.5 (80.0-100.0) fL MCH 30.6 (27.0-34.0) pg MCHC 32.7 (32.0-36.0) % RDW 15.2 (11.6-17.2) % Plt Count 152 (150-450) th/mm3 MPV 10.2 (7.0-11.0) fL Neut % (Auto) 63.9 (16.0-70.0) % Lymph % (Auto) 25.8 (9.0-44.0) % Cowley % (Auto) 8.5 H (0.0-8.0) % Eos % (Auto) 1.3 (0.0-4.0) % Baso % (Auto) 0.5 (0.0-2.0) % Neut # (Auto) 4.3 (1.8-7.7) th/mm3 Lymph # (Auto) 1.7 (1.0-4.8) th/mm3 Cowley # (Auto) 0.6 (0.0-0.9) th/mm3 Eos # (Auto) 0.1 (0.0-0.4) th/mm3 Baso # (Auto) 0.0 (0.0-0.2) th/mm3 WBC Differential . Differential Comment Auto diff final PT 10.9 (9.8-11.6) sec INR 1.1 Ratio APTT 28.4 (24.3-30.1) sec Sodium 141 (136-145) meq/L Potassium 3.5 (3.5-5.1) meq/L Chloride 106 (98-107) meq/L Carbon Dioxide 26.1 (21.0-32.0) meq/L Anion Gap 9 (5-15) meq/L BUN 27 H (7-18) mg/dL Creatinine 1.33 H (0.50-1.00) mg/dL Estimated GFR 47 L (>89) mL/min Random Glucose 129 H (74-106) mg/dL Calcium 9.0 (8.5-10.1) mg/dL Total Bilirubin 0.2 (0.2-1.0) mg/dL AST 11 L (15-37) U/L ALT 12 (10-53) U/L Alkaline Phosphatase 107 (45-117) U/L Total Creatine Kinase 74 (26-192) U/L Troponin I Less than 0.02 L (0.02-0.05) ng/mL Total Protein 7.8 (6.4-8.2) g/dL Albumin 3.1 L (3.4-5.0) g/dL Lipase 165 (73-393) U/L 05/17/18 Range/Units 03:29 WBC (4.0-11.0) th/mm3 RBC (4.00-5.30) mil/mm3 Hgb (11.6-15.3) gm/dL Hct (35.0-46.0) % MCV (80.0-100.0) fL MCH (27.0-34.0) pg MCHC (32.0-36.0) % RDW (11.6-17.2) % Plt Count (150-450) th/mm3 MPV (7.0-11.0) fL Neut % (Auto) (16.0-70.0) % Lymph % (Auto) (9.0-44.0) % Cowley % (Auto) (0.0-8.0) % Eos % (Auto) (0.0-4.0) % Baso % (Auto) (0.0-2.0) % Neut # (Auto) (1.8-7.7) th/mm3 Lymph # (Auto) (1.0-4.8) th/mm3 Cowley # (Auto) (0.0-0.9) th/mm3 Eos # (Auto) (0.0-0.4) th/mm3 Baso # (Auto) (0.0-0.2) th/mm3 WBC Differential Differential Comment PT (9.8-11.6) sec INR Ratio APTT (24.3-30.1) sec Sodium (136-145) meq/L Potassium (3.5-5.1) meq/L Chloride (98-107) meq/L Carbon Dioxide (21.0-32.0) meq/L Anion Gap (5-15) meq/L BUN (7-18) mg/dL Creatinine (0.50-1.00) mg/dL Estimated GFR (>89) mL/min Random Glucose (74-106) mg/dL Calcium (8.5-10.1) mg/dL Total Bilirubin (0.2-1.0) mg/dL AST (15-37) U/L ALT (10-53) U/L Alkaline Phosphatase (45-117) U/L Total Creatine Kinase 62 (26-192) U/L Troponin I Less than 0.02 L (0.02-0.05) ng/mL Total Protein (6.4-8.2) g/dL Albumin (3.4-5.0) g/dL Lipase (73-393) U/L Imaging Data Radiologist's impression: Chest X-Ray 05/17/18 00:08 CONCLUSION: Negative examination. ECG Data EKG Prior to Arrival: No Attestation: I personally reviewed and interpreted this ECG as follows: Interpretation: ECG shows sinus bradycardia, no ST elevation or depression Discharge Plan Discharge Disposition Patient Disposition: 30 Still Patient Discharge Condition Condition: Stable Discharge Details Diagnosis: Chest pain Physicians Team ED Provider: Elodia Bolden Attending Provider: Alhaji Montiel Discharge Interventions Interventions: ED Discharge Assessment Last Done: 05/17/18 03:36 Vital Signs Last Done: 05/16/18 23:43 Status ED Status: Left Department Discharge Information Discharge Date/Time: 05/17/18 03:36
[2018-05-17 04:25] LABS: Creatine Kinase 62 U/L (26-192)
--- NOTE | 2018-05-17 08:43 | P.HPCA ---
History of Present Illness Primary Care Physician: Obi Thakkar Chief Complaint: chest pain History of Present Illness: This is a 77-year-old female the presents to ED to be evaluated for chest discomfort. She describes as a burning/warmth feeling across her chest and going into her throat. Began 2 weeks ago. Has been intermittent. States it was always happens at nighttime when she is lying down very rarely has occurred during the daytime. When it occurs it lasts a few minutes. Denies associated shortness of breath, nausea, diaphoresis. Patient does have history of heart disease. States she had 2 stents in [place] in 2004. States that her current symptoms do not feel at all like the symptoms she had when needing stents. At that time the gripping discomfort. States she has not had that discomfort since having the stents. Follows Dr. Adhikari. She saw her PCP yesterday for chest discomfort, EKG was done showing bradycardia. She does not know the exact rate but her doctor told he was concerned advised her to go to the ED to be evaluated for that as well as her chest discomfort. States she has felt weaker over the last couple months. What concerned her last evening was the discomfort lasted longer prompting her to come to the ED. States she was given some stomach medications in the ED which helped a little bit but did not completely resolve her symptoms. States it lasted for hours. They had gone away somewhere along the night. She currently denies the discomfort. Denies recent travels. Denies recent illnesses. Denies fevers chills. Patient is known CAD with 2 stents, hypertension, diabetes, GERD, hyperlipidemia however taking her medications secondary to myalgias. There is family history of heart disease. Patient is a lifetime non-smoker. She is taking metoprolol succinate daily and 25 mg losartan daily for blood pressure. States she has been on Plavix since the stent which is about 10 years ago. Takes insulin for diabetes. Ranitidine for GERD. - Diagnosis (1) Chest pain (2) CAD (coronary artery disease) (3) Hx of heart artery stent (4) HTN (hypertension) (5) HLD (hyperlipidemia) (6) Diabetes (7) Bradycardia (8) GERD (gastroesophageal reflux disease) Review of Systems General: Patient denies fevers, chills, and recent travel. HEENT: Patient denies headache, sore throat, difficulty swallowing. Cardiovascular: Has the chest discomfort as mentioned above. Denies sensation of heart beating rapidly or irregularly. No syncope. Denies diaphoresis. Respiratory: Denies shortness of breath or inspirational chest discomfort. Denies coughing wheezing or hemoptysis. GI: Patient denies nausea, vomiting, diarrhea, abdominal pain, bloody stools. Musculoskeletal: Patient denies joint pain or edema. Denies calf pain or edema. Neurovascular: Patient denies numbness, tingling, weakness in extremities. Denies headache. Endocrine: Denies polyuria and polydipsia. Hematologic: Denies easy bruising. Skin: Denies rash or itching. PMFSH - History History Provided By: Patient - Medical History Medical History: Medical History (Last Reviewed 05/17/18 @ 06:53 by Elodia Bolden MD) Bradycardia Diabetes GERD (gastroesophageal reflux disease) Hypertension - Surgical History Surgical History: Surgical History (Last Reviewed 05/17/18 @ 06:53 by Elodia Bolden MD) H/O hernia repair History of heart artery stent History of total right knee replacement - Tobacco History Second Hand Smoke Exposure: No Tobacco Use In Past 30 Days: No Smoking Status: Former smoker Tobacco Type: Cigarettes - Alcohol History How Often Do You Have a Drink Containing Alcohol: Never - Substance Use History Substance History: No History of Abuse - Travel History Recent Travel in the [place] Within the Last 8 Weeks: No Recent Travel Out of the Country Within the Last 8 Weeks: No - Immunization History Tetanus Immunization: Unsure Hx Influenza Vaccine This Season: Yes Medications and Allergies Active Medications: Active Medications Acetaminophen (Tylenol) 500 mg PO Q4H PRN PRN Reason: HEADACHE Sodium Chloride (Ns Flush) 2 ml IV.FLUSH UNSCH PRN PRN Reason: FLUSH AFTER USING IV ACCESS Sodium Chloride (Ns Flush) 2 ml IV.FLUSH BID VANE Sodium Chloride (Ns Flush) 2 ml IV.FLUSH PRN PRN PRN Reason: FLUSH AFTER USING IV ACCESS Allergies Allergy/AdvReac Type Severity Reaction Status Date / Time benzalkonium chloride Allergy Intermediate Redness Verified 05/16/18 23:09 brimonidine Allergy Intermediate Redness Verified 05/16/18 23:09 travoprost Allergy Intermediate Redness Verified 05/16/18 23:09 ciprofloxacin Allergy Mild itching Verified 05/16/18 23:09 and swelling sulfamethoxazole Allergy Unknown Nausea Verified 05/16/18 23:09 trimethoprim Allergy Unknown Nausea Verified 05/16/18 23:09 levofloxacin AdvReac Severe WEAKNESS Verified 05/16/18 23:09 Home Medications Medication Instructions Recorded Confirmed Type Plavix 75 mg PO DAILY 05/16/18 05/16/18 History insulin NPH and regular human 16 unit SUB-Q DAILY 05/16/18 05/16/18 History [Novolin 70/30 U-100 Insulin] losartan 25 mg PO DAILY 05/16/18 05/16/18 History metoprolol succinate 50 mg PO DAILY 05/16/18 05/16/18 History ranitidine HCl 75 mg PO BID PRN 05/16/18 05/16/18 History Exam Vital signs: Vital Signs 05/16/18 23:09 05/16/18 23:43 05/17/18 00:47 Temperature 97.8 F Pulse Rate 65 49 L 42 L Respiratory Rate 16 18 18 Blood Pressure 197/89 H 220/97 H 220/61 H Pulse Oximetry 100 98 98 05/17/18 01:02 05/17/18 02:36 05/17/18 02:45 Temperature Pulse Rate 48 L Respiratory Rate 18 Blood Pressure 188/78 H 220/105 H 176/67 H Pulse Oximetry 98 05/17/18 04:00 05/17/18 04:33 05/17/18 05:02 Temperature 97.6 F Pulse Rate 48 L 50 L 36 L Respiratory Rate 18 Blood Pressure 144/61 H Pulse Oximetry 100 05/17/18 08:00 Temperature 98.4 F Pulse Rate 48 L Respiratory Rate 20 Blood Pressure 184/69 H Pulse Oximetry 100 Intake & Output 05/16/18 05/17/18 05/17/18 18:59 06:59 18:59 Weight 99.337 kg Other: # Voids 1 Narrative: GENERAL: This is a well-nourished, well-developed patient, in no apparent distress. Patient speaks in clear complete sentences. Patient is pleasant. HEENT: Head is atraumatic and normocephalic. Neck is supple without lymphadenopathy and trachea is midline. No JVD or carotid bruits. CARDIOVASCULAR: Patient is bradycardic with rate in the high 30s low 40s. No murmurs, gallops, or rubs. RESPIRATORY: Clear to auscultation. Breath sounds equal bilaterally. No wheezes , rales, or rhonchi. Chest wall is nontender. No use of accessory muscles. GASTROINTESTINAL: Abdomen is nontender, nondistended. Abdomen soft. No obvious pulsatile mass or bruit. No CVA tenderness. Strong femoral pulses bilaterally. Normal bowel sounds in all quadrants. MUSCULOSKELETAL: Patient is moving upper and lower extremities freely. No calf tenderness or edema, no Homans sign. Strong pulses in upper and lower extremities. NEUROLOGICAL: Patient is alert and oriented. Cranial nerves 2-12 are grossly intact. No focal deficits and speech is clear. SKIN: No rash and turgor is normal. Results 05/17/18 00:15 05/17/18 00:15 Cardiac Enzymes 05/17/18 05/17/18 Range/Units 00:15 03:29 AST 11 L (15-37) U/L Troponin I Less than 0.02 L Less than 0.02 L (0.02-0.05) ng/mL Coagulation 05/17/18 Range/Units 00:15 PT 10.9 (9.8-11.6) sec APTT 28.4 (24.3-30.1) sec CBC 05/17/18 Range/Units 00:15 WBC 6.7 (4.0-11.0) th/mm3 RBC 3.22 L (4.00-5.30) mil/mm3 Hgb 9.8 L (11.6-15.3) gm/dL Hct 30.1 L (35.0-46.0) % Plt Count 152 (150-450) th/mm3 Neut # (Auto) 4.3 (1.8-7.7) th/mm3 Lymph # (Auto) 1.7 (1.0-4.8) th/mm3 [place] # (Auto) 0.6 (0.0-0.9) th/mm3 Eos # (Auto) 0.1 (0.0-0.4) th/mm3 Baso # (Auto) 0.0 (0.0-0.2) th/mm3 Comprehensive Metabolic Panel 05/17/18 Range/Units 00:15 Sodium 141 (136-145) meq/L Potassium 3.5 (3.5-5.1) meq/L Chloride 106 (98-107) meq/L Carbon Dioxide 26.1 (21.0-32.0) meq/L BUN 27 H (7-18) mg/dL Creatinine 1.33 H (0.50-1.00) mg/dL Calcium 9.0 (8.5-10.1) mg/dL AST 11 L (15-37) U/L ALT 12 (10-53) U/L Alkaline Phosphatase 107 (45-117) U/L Total Protein 7.8 (6.4-8.2) g/dL Albumin 3.1 L (3.4-5.0) g/dL Intake and Output 05/16/18 05/17/18 05/17/18 22:59 06:59 14:59 Other: # Voids 1 Weight 99.337 kg EKG interpretations - EKG EKG shows: bradycardia (EKGs have been sinus bradycardia without significant ST segment depressions or elevations.) Caprini VTE Risk Assessment Caprini VTE Risk Assessment: Moderate/High Risk (score >= 2) Caprini Risk Assessment Model: Point Value = 1 Point Value = 2 Point Value = 3 Point Value = 5 Age 41-60 Minor surgery BMI > 25 kg/m2 Swollen legs Varicose veins or History of unexplained or recurrent spontaneous Oral contraceptives or hormone replacement Sepsis (< 1 month) Serious lung disease, including pneumonia (< 1 month) Abnormal pulmonary function Acute myocardial infarction Congestive heart failure (< 1 month) History of inflammatory bowel disease Medical patient at bed rest Age 61-74 Arthroscopic surgery Major open surgery (> 45 min) Laparoscopic surgery (> 45 min) Malignancy Confined to bed (> 72 hours) Immobilizing plaster cast Central venous access Age >= 75 History of VTE Family history of VTE Factor V Leiden Prothrombin [id number] Lupus anticoagulant Anticardiolipin antibodies Elevated serum homocysteine Heparin-induced thrombocytopenia Other congenital or acquired thrombophilia Stroke (< 1 month) Elective arthroplasty Hip, pelvis, or leg fracture Acute spinal cord injury (< 1 month) Prophylaxis Regimen: Total Risk Factor Score Risk Level Prophylaxis Regimen 0-1 Low Early ambulation 2 Moderate Order ONE of the following: *Sequential Compression Device (SCD) *Heparin 5000 units SQ BID 3-4 Higher Order ONE of the following medications: *Heparin 5000 units SQ TID *Enoxaparin/Lovenox 40 mg SQ daily (WT < 150 kg, CrCl > 30 mL/min) *Enoxaparin/Lovenox 30 mg SQ daily (WT < 150 kg, CrCl > 10-29 mL/min) *Enoxaparin/Lovenox 30 mg SQ BID (WT < 150 kg, CrCl > 30 mL/min) AND/OR *Sequential Compression Device (SCD) 5 or more Highest Order ONE of the following medications: *Heparin 5000 units SQ TID (Preferred with Epidurals) *Enoxaparin/Lovenox 40 mg SQ daily (WT < 150 kg, CrCl > 30 mL/min) *Enoxaparin/Lovenox 30 mg SQ daily (WT < 150 kg, CrCl > 10-29 mL/min) *Enoxaparin/Lovenox 30 mg SQ BID (WT < 150 kg, CrCl > 30 mL/min) AND *Sequential Compression Device (SCD) Assessment and Plan - Assessment (1) Chest pain Code(s): R07.9 - Chest pain, unspecified Status: Acute (2) CAD (coronary artery disease) Code(s): I25.10 - Atherosclerotic heart disease of [place] coronary artery without angina pectoris Status: Acute (3) Hx of heart artery stent Code(s): Z95.5 - Presence of coronary angioplasty implant and graft Status: Acute (4) HTN (hypertension) Code(s): I10 - Essential (primary) hypertension Status: Acute (5) HLD (hyperlipidemia) Code(s): E78.5 - Hyperlipidemia, unspecified Status: Acute (6) Diabetes Code(s): E11.9 - Type 2 diabetes mellitus without complications Status: Acute (7) Bradycardia Code(s): R00.1 - Bradycardia, unspecified Status: Acute (8) GERD (gastroesophageal reflux disease) Code(s): K21.9 - Gastro-esophageal reflux disease without esophagitis Status: Acute - Plan * Chest pain: Patient will have serial cardiac enzymes and EKGs for ruling out purposes. She will be seen by Dr. Harrell of cardiology in the chest pain center. I am attempting to speak with her title one reading teacher to discuss her symptoms and to get a further plan. We will discuss her bradycardia with Dr. Harrell as well as the patient's title one reading teacher or the title one reading teacher covering for them. Patient will need follow-up with title one reading teacher. * History of CAD with stents: Patient will need to continue follow-up with her title one reading teacher. Will need discuss Plavix that she has been on Plavix now for about 10 years after having a stent. * Hypertension: Likely will need to hold her beta-axel. Patient stated that she would prefer to start back on amlodipine. Continue losartan. * Bradycardia: We will discontinue beta-axel at this time. Further plan pending evaluation of Dr. Harrell in conversation with her title one reading teacher. * Diabetes: Patient will be on sliding scale insulin coverage. Resume medication at discharge. * Hyperlipidemia: Patient states she was taken off statin secondary to myalgias. She should discuss this with her PCP and title one reading teacher. * GERD: Likely start PPI. Patient stable at this time. She is agreeable to this plan. H&P: Quality - VTE Deep Vein Thrombosis/Pulmonary Embolism Present on Admission: No (1) Chest pain Qualifiers: Chest pain type: unspecified Qualified Code(s): R07.9 - Chest pain, unspecified
[2018-05-17 10:09] LABS: Creatine Kinase 66 U/L (26-192)
[2018-05-17] MEDS ORDERED: Regadenoson Inj 0.4 MG/5 ML Syringe IV.PUSH ONE (12:50)
[2018-05-17] MEDS: Insulin NovoLIN Regular Correctional Sugar Inj SQ SCH ×2 (13:44→18:51)
--- NOTE | 2018-05-17 13:47 | ECG ---
Date Performed: 05/17/2018 Time Performed: 03:26:18 PTAGE: 77 years EKG: SINUS BRADYCARDIA BORDERLINE ECG PREVIOUS TRACING : 05/16/2018 23.35 Since previous tracing, no significant change noted DOCTOR: Clifton Harrell Interpretating Date/Time 05/17/2018 13:46:59
--- NOTE | 2018-05-17 13:50 | ECG ---
Date Performed: 05/16/2018 Time Performed: 23:35:55 PTAGE: 77 years EKG: SINUS BRADYCARDIA WITH MARKED SINUS ARRHYTHMIA MODERATE VOLTAGE CRITERIA FOR LVH, CONSIDER NORMAL VARIANT BORDERLINE ECG PREVIOUS TRACING : 02/04/2018 22.22 Compared to previous tracing,heart rate is slower. DOCTOR: Clifton Harrell Interpretating Date/Time 05/17/2018 13:49:23
--- NOTE | 2018-05-17 13:55 | ECG ---
Date Performed: 05/17/2018 Time Performed: 06:21:15 PTAGE: 77 years EKG: SINUS BRADYCARDIA WITH SINUS ARRHYTHMIA WITH FIRST DEGREE AV BLOCK ABNORMAL ECG PREVIOUS TRACING : 05/17/2018 03.26 Since previous tracing, no significant change noted DOCTOR: Clifton Harrell Interpretating Date/Time 05/17/2018 13:53:56
--- NOTE | 2018-05-17 14:05 | TR ---
Date Performed: 05/17/2018 Time Performed: 13:06:52 DOCTOR: Clifton Harrell DRUG LIST: CLINICAL HISTORY: REASON FOR TEST: REASON FOR ENDING: OBSERVATION: CONCLUSION: COMMENTS: Lexiscan stress test was performed under standard four minute protocol. Radionuclide was injected one minute prior to ending the test. No electrocardiographic abormalities were present t o suggest ischemia. Nuclear imaging and interpretation are pending.
--- NOTE | 2018-05-17 14:42 | NM ---
EXAM DATE: 05/17/2018 2:32 PM EDT AGE/SEX: 77 years / Female INDICATIONS:Angina. Coronary artery disease Chest pain. CLINICAL DATA: This is the patient's initial encounter. Patient reports that signs and symptoms have been present for 2 weeks and indicates a pain score of 3/10. MEDICAL/SURGICAL HISTORY: Hypertension. Diabetes mellitus type II. Coronary artery stent. COMPARISON: No prior exams available for comparison. DOSE: 8.8 mCi Tc 99m Myoview at rest 27.2 mCi [id number] at stress 0.4 mg Lexiscan STRESS SYMPTOMS: Dyspnea. EJECTION FRACTION: > 70 % TECHNIQUE: The patient underwent pharmacologic stress with infusion of prescribed dose. Continuous ECG tracing was monitored during stress. Gated SPECT imaging was performed after stress and conventi onal SPECT imaging was performed at rest. The examination was performed on a SPECT/CT scanner, both attenuation and non-corrected datasets were reviewed. FINDINGS: Distribution: The maximum perfused segment at stress is in the anterolateral wall. Perfusion Study: Moderately diminished relative perfusion to the cardiac apex without definite redi stribution. Gated Study: There are intact wall motion and wall thickening without hypokinetic or dyskinetic segm ents. The ejection fraction is calculated at > 70%. RISK CATEGORY: Intermediate (1-3 % Annual Mortality Rate) CONCLUSION: Moderate sized moderate severity apical perfusion abnormality without definite evidence of ischemia. Electronically signed by: Obi Saldana MD 05/17/2018 2:40 PM EDT
[2018-05-18] MEDS ORDERED: amLODIPine 5 MG Tablet PO SCH (09:00)
== END 2018-05-17 20:11 | disposition home or self-care (01) ==
LOC: NEPE 22:46 → NEDA 22:46 → NEPGCP 05-17 04:12
PROVIDERS: ADMIT Internal Medicine Cardiovascular Disease; ATTEND Internal Medicine Cardiovascular Disease